=== PATIENT | male | born 1950 | race Caucasian/White ===

== ENCOUNTER 2020-10-04 09:27 | Outpatient (REF) | payer MEDICARE, OTHER, SELFPAY ==
--- NOTE | 2020-10-04 09:31 | CT_ITS ---
EXAMINATION: CT CHEST WITHOUT CONTRAST CLINICAL INFORMATION: Malignant neoplasm of lower lobe. COMPARISON: Chest 02/16/[address] chest 05/12/2017. TECHNIQUE: Multidetector volumetric CT imaging of the chest was done. Axial MIP volume rendering provided. Sagittal and coronal reformatted images were obtained. This CT examination was performed using dose optimization techniques as appropriate, variously including the following: *Automated exposure control *Adjustment of mA and/or kV according to patient size (this includes techniques or standardized protocols for targeted exams where dose is matched to indication/reason for exam; i.e. extremities or head) *Use of iterative reconstruction technique DLP: 182 mGy-cm FINDINGS: HIGH PRESSURE CLEANER: Well-expanded lungs. LUNGS: Inflated lungs with postsurgical changes right upper hemithorax. There is no recurrent pneumothorax. Parenchymal thickening at the surgical site is similar to previous exam from previous study. Small reticular nodular changes in the right upper lobe are also unchanged. Patchy ground-glass density with reticular nodular changes in the right lower lobe are new since the previous study. The largest nodule measures 5 mm on axial image 365/7. MEDIASTINUM: The central trachea and the bronchi are widely patent. The heart size and the great vessels are normal caliber. Mild dystrophic calcification of thoracic arch and the coronary arteries is noted. No pericardial effusion seen. No abnormal mediastinal or hilar lymph nodes. PLEURA: There is no pleural effusion. No pleural mass or thickening. AXILLA: No lymphadenopathy. UPPER ABDOMEN: Visualized liver, spleen, pancreas and bilateral adrenal glands are unremarkable. No radiopaque gallstones or wall thickening seen. There is a punctate calcification midpole right kidney. OSSEOUS STRUCTURES: No lytic or sclerotic process seen. CT/CT chest wo con IMPRESSION: Status post right upper lobe partial lobectomy with postop changes seen. No changes seen in the right upper hemithorax. There are new reticular nodular changes and ground-glass scattered densities in the right lower lobe most likely postradiation changes. The largest nodule measures 5 mm. I would correlate with CT PET study or CT followup in 3-6 months. The left lung remains clear. No abnormal mediastinal lymph node seen.
== END 2020-10-04 09:28 | disposition home or self-care (01) ==
LOC: HO.CT 09:27
PROVIDERS: PCP Internal Medicine; Visit Provider Surgery
DX: C34.30 Malignant neoplasm of lower lobe, unspecified bronchus or lung (principal)
CPT/HCPCS: 71250

== ENCOUNTER 2020-11-12 08:15 | Day surgery (SDC) | payer MEDICARE, OTHER, SELFPAY ==
[2020-11-07 09:10] VITALS: BMI 24.9
--- NOTE | 2020-11-09 07:29 | HO.ANESPROP2 ---
Documented by User: Etta Call 11/09/20 07:30 HPI - Anesthesia Eval Consult details Narrative: 70yo M for Upper Endoscopy and Colonoscopy h/o lung ca with RLL resect 2016. Also ?esoph ca but lost to f/u. Dr Barth follows recently and recommend EGD PMFSH Past Medical History Medical History Arthritis Depression Elevated cholesterol GERD (gastroesophageal reflux disease) History of esophageal cancer HTN (hypertension) Hx of cancer of lung Surgical History Surgical History H/O colonoscopy History of esophagogastroduodenoscopy (EGD) History of surgery on left wrist Hx of tonsillectomy Social History Social History Are you a primary caregivers non medical to a significant other at home: No Do you presently have visiting nurse or other home services: No Smoking Status: Former smoker Smoked in Last 30 Days: No Smoking Quit Date: 2015 Use of substances other than those prescribed or required for medical reasons: No Have you been hit, kicked, punched, or otherwise hurt by someone within the past year? If so, by whom?: No Advance Directives Information Provided: No Recently lost weight without trying: No Meds Allergies Allergy/AdvReac Type Severity Reaction Status Date / Time erythromycin base Allergy Mild HIVES Verified 11/12/20 08:00 [Erythromycin Base] levofloxacin Allergy Unknown Unknown Verified 11/12/20 08:00 Home Medications Medication Instructions Recorded Confirmed Last Taken Type atorvastatin 20 mg PO BEDTIME 11/07/20 11/07/20 Unknown History losartan 50 mg PO DAILY 11/07/20 11/07/20 Unknown History omeprazole 40 mg PO DAILY 11/07/20 11/07/20 Unknown History sertraline 100 mg PO DAILY 11/07/20 11/07/20 11/12/20 07:30 History Exam Exam Date and Time: November 09, 2020 0729 Height,Weight and Vital Signs: Height 5 ft 4 in Weight 65.771 kg Assessment and Plan Assessment Anesthesia Assessment: Chart Reviewed Documented by User: Ashok Diaz 11/12/20 09:35 COUNTS INCLUDE 234 BEDS AT THE [facility] Past Medical History Medical History Arthritis Depression Elevated cholesterol GERD (gastroesophageal reflux disease) History of esophageal cancer HTN (hypertension) Hx of cancer of lung Surgical History Surgical History H/O colonoscopy History of esophagogastroduodenoscopy (EGD) History of surgery on left wrist Hx of tonsillectomy Social History Social History Are you a primary caregivers non medical to a significant other at home: No Do you presently have visiting nurse or other home services: No Smoking Status: Former smoker Smoked in Last 30 Days: No Smoking Quit Date: 2015 Use of substances other than those prescribed or required for medical reasons: No Have you been hit, kicked, punched, or otherwise hurt by someone within the past year? If so, by whom?: No Advance Directives Information Provided: No Recently lost weight without trying: No Meds Allergies Allergy/AdvReac Type Severity Reaction Status Date / Time erythromycin base Allergy Mild HIVES Verified 11/12/20 08:00 [Erythromycin Base] levofloxacin Allergy Unknown Unknown Verified 11/12/20 08:00 Home Medications Medication Instructions Recorded Confirmed Last Taken Type atorvastatin 20 mg PO BEDTIME 11/07/20 11/07/20 Unknown History losartan 50 mg PO DAILY 11/07/20 11/07/20 Unknown History omeprazole 40 mg PO DAILY 11/07/20 11/07/20 Unknown History sertraline 100 mg PO DAILY 11/07/20 11/07/20 11/12/20 07:30 History Exam Airway Mallampati Class: II TM Dist: >3cm Neck ROM: Full Denture: Upper Loose/Missing/Broken Teeth: Yes (lower poor dentition) Heart: [id number] Lungs: cta b/l Assessment and Plan Assessment Anesthesia Assessment: Anesthesia Plan Discussed, Smoking Cess. Discussed and Chart Reviewed Final Anesthetic Review NPO: Yes ASA Class: III Final Preanesthetic Review: No Changes in Pt Med Stat, Meds/Allgs Chart Reviewed, Consent Obtained/Reviewed and Anes Risks/Benef Reviewed Patient Risk: Low Procedure Risk: Low Assessment/Block/Sedation in SS: Assess/Block/Sedation-SS Anesthetic Plan Anesthetic Plan: MAC: and Agree w/ Assess. and Plan Disposition: Standard PACU
[2020-11-12 08:44] VITALS: BP 100/70; PULSE 76; RESP 16; TEMP 36.6; O2SAT 98
[2020-11-12] MEDS: Lactated Ringers 1,000 ML 100 ML IVCONT (08:59)
[2020-11-12 10:34] VITALS: BP 80/57; PULSE 67; RESP 12; TEMP 36.1; O2SAT 99
[2020-11-12 10:38] VITALS: BP 72/48; PULSE 63; RESP 16; O2SAT 100
--- NOTE | 2020-11-12 10:38 | PM.OP ---
Brief Operative Note Date of Service: 11/12/20 Pre-op diagnosis: GERD, Screening Post-op diagnosis: other (Hiatal hernia, Gastritis, Duodenitis, Colon polyps, Diverticulosis) Procedure: EGD with biopsies, Colonoscopy to the cecum with biopsy and removal of polyps Surgeon: Corey Pascual Anesthesia: MAC Estimated blood loss (mL): 4.0 Pathology: other (A. Gastric antrum B. Esophagus at 22cm C. Transverse colon polyp D. Rectal polyp) Condition: stable Disposition: PACU
[2020-11-12 10:42] VITALS: BP 84/54; PULSE 64; RESP 16; O2SAT 100
[2020-11-12 10:53] VITALS: BP 100/63; PULSE 69; RESP 17; TEMP 36.1; O2SAT 99
--- NOTE | 2020-11-12 10:55 | OP_ITS ---
SURGEON: Corey Pascual MD INDICATIONS: The patient presents for evaluation of gastroesophageal reflux, history of esophageal cancer, personal history of tubular adenoma of the colon, and colorectal cancer screening. Full consent has been obtained from him for this, including risks of bleeding and perforation. PREOPERATIVE DIAGNOSIS: POSTOPERATIVE DIAGNOSIS: PROCEDURE PERFORMED: Esophagogastroduodenoscopy with biopsies and colonoscopy to the cecum with biopsy and removal of polyps. ESTIMATED BLOOD LOSS: COMPLICATIONS: ANESTHESIA: Monitored anesthesia care. ASSISTANTS: SPECIMENS: PREOPERATIVE DIAGNOSES: Gastroesophageal reflux, personal history of esophageal cancer, personal history of tubular adenoma of the colon, and colorectal cancer screening. POSTOPERATIVE DIAGNOSES: Gastroesophageal reflux, personal history of esophageal cancer, personal history of tubular adenoma of the colon, and colorectal cancer screening, hiatal hernia, gastritis, colon polyps, diverticulosis and internal hemorrhoids. DESCRIPTION OF PROCEDURE: The patient was placed in the left lateral decubitus position. The Olympus video gastroscope was passed in the posterior oropharynx and upper esophagus under direct vision. The scope was passed slowly into the distal esophagus. The gastroesophageal junction appeared normal at 35 cm. There was no sign of any esophagitis nor Jacques's esophagus. There was a small hiatal hernia. The scope was advanced to the pylorus and the duodenum was cannulated to the descending portion. The duodenum including the bulb was carefully inspected. There was some mild duodenitis in the duodenal bulb, but no ulcerations nor erosions. Scope was withdrawn back into the stomach. The gastric antrum had changes consistent with a chronic gastritis with some erythema and edema, but no erosions or ulceration. There was good peristalsis. Biopsies were obtained from the gastric antrum. The scope was retroflexed visualizing the proximal stomach carefully, which appeared to have some component of a gastropathy, but without erosions or ulceration. There was no mass. The scope was straightened out and withdrawn back into the esophagus. The EG junction appeared normal. The entire esophagus appeared normal other than some scarring in the very proximal esophagus and at approximately 22 cm, some areas of erythema, but without any sign of mass or ulceration. Biopsies were obtained at 22 cm. The scope was withdrawn from the patient. He was turned around for colonoscopy. The digital rectal exam revealed no abnormalities. The Olympus video pediatric colonoscope was entered into the rectum and advanced easily to the cecum. Once in the cecum, I did identify normal-appearing cecal pouch with appendiceal orifice and a normal-appearing ileocecal valve. The entire cecum was well visualized and appeared normal. The scope was slowly withdrawn assessing all mucosal surfaces carefully. Preparation was excellent. In the transverse colon, was a flat, but slightly raised approximately 8 mm probable hyperplastic and/or inflammatory polyp, which was biopsied multiple times. In the rectum, was an approximately 3 or 4 mm polyp, which was biopsied and completely removed with cold biopsy forceps. I did not visualize any other polyps, colitis, nor angiodysplasia. There was a mild amount of sigmoid diverticulosis. In the rectum, scope was retroflexed visualizing internal hemorrhoids, but no other pathology. The rectal mucosa appeared normal. Scope was straightened out and withdrawn from the patient. He tolerated the procedures well and was returned to the recovery area in stable condition. IMPRESSION: 1. Hiatal hernia. 2. Gastritis. 3. Colon polyps. 4. Diverticulosis. 5. Internal hemorrhoids. PLAN: The results of the biopsies will be checked. I would recommend a repeat colonoscopy in 5 years for further surveillance. He will continue his omeprazole for symptomatic reflux. He was advised not to use any aspirin nor NSAIDs for at least 1 week. MD KIYA Braga/DEWAYNE / [id number]
== END 2020-11-12 12:12 | disposition home or self-care (01) ==
PROVIDERS: PCP Internal Medicine; Visit Provider Internal Medicine
PROC: (CPT 45380; principal; 2020-11-12 09:30)
DX: Z12.11 Encounter for screening for malignant neoplasm of colon (principal); Z86.010 Personal history of colon polyps; K63.5 Polyp of colon; K64.8 Other hemorrhoids; K21.9 Gastro-esophageal reflux disease without esophagitis; Z85.01 Personal history of malignant neoplasm of esophagus; K29.70 Gastritis, unspecified, without bleeding; K29.80 Duodenitis without bleeding; K44.9 Diaphragmatic hernia without obstruction or gangrene; I10 Essential (primary) hypertension; Z79.899 Other long term (current) drug therapy; Z85.118 Personal history of other malignant neoplasm of bronchus and lung; Z92.21 Personal history of antineoplastic chemotherapy; Z92.3 Personal history of irradiation; Z87.891 Personal history of nicotine dependence
CPT/HCPCS: 45380; 43239; 88305; 88342; J2370

== ENCOUNTER 2021-01-02 11:04 | Outpatient (REF) | payer MEDICARE, OTHER, SELFPAY ==
--- NOTE | ~2021-01-02 | CT_ITS ---
EXAMINATION: CT CHEST WITHOUT CONTRAST CLINICAL INFORMATION: Malignant neoplasm of bronchus/lower lobe COMPARISON: None TECHNIQUE: Multidetector volumetric CT imaging of the chest was done. Axial MIP volume rendering provided. Sagittal and coronal reformatted images were obtained. This CT examination was performed using dose optimization techniques as appropriate, variously including the following: *Automated exposure control *Adjustment of mA and/or kV according to patient size (this includes techniques or standardized protocols for targeted exams where dose is matched to indication/reason for exam; i.e. extremities or head) *Use of iterative reconstruction technique DLP: 179 mGy-cm FINDINGS: GROUNDS AND NURSERY SPECIALIST: Well-inflated lungs. LUNGS: There are postsurgical changes right upper lobe following wedge resection. Small reticulonodular changes in the right upper lobe are similar to previous study. No recurrent mass or nodule seen. There are reticulonodular changes in the right lower lobe, again visualized. The largest nodule right lower lobe measures 7 mm on axial image 35/4. Same nodule previously measured 7 mm and is stable. No new nodules seen. MEDIASTINUM: There is right ipsilateral mediastinal shift due to volume loss. The right thyroid lobe is visualized. The left thyroid lobe is not seen. The central trachea and the bronchi are widely patent. No abnormal size mediastinal or hilar lymph nodes seen. Heart size and the great vessels are normal caliber. There are coronary artery calcifications. No pericardial effusion seen. PLEURA: There is minimal right upper hemithorax lateral pleural thickening likely postsurgical. No pleural effusion seen. There is no pleural calcification. AXILLA: No lymphadenopathy. UPPER ABDOMEN: Visualized liver, spleen, pancreas and bilateral adrenal glands are unremarkable. OSSEOUS STRUCTURES: No lytic or sclerotic process seen. CT/CT chest wo con IMPRESSION: Right upper lobe partial lobectomy with postop changes seen. No recurrent disease in the right upper lobe. Reticulonodular changes and ground-glass attenuation right lower lobe are stable. There are no new nodules or ground-glass density. There is ipsilateral mediastinal shift. Consider long-term CT chest follow-up in 9-12 months.
== END 2021-01-02 11:05 | disposition home or self-care (01) ==
LOC: HO.CT 11:04
PROVIDERS: PCP Internal Medicine; Visit Provider Surgery
DX: C34.90 Malignant neoplasm of unspecified part of unspecified bronchus or lung (principal)
CPT/HCPCS: 71250

== ENCOUNTER 2021-07-18 11:24 | Outpatient (REF) | payer MEDICARE, OTHER, SELFPAY ==
[2021-07-18 13:45] LABS: MANUAL DIFF FLAG NO
[2021-07-18 13:51] LABS: Basophils Percent Auto 0.4 % (0-2); Eosinophils Absolute Auto 0.1 X10*3/uL (0.0-0.4); Eosinophils Percent Auto 1.1 % (0-4); Hematocrit 39.3 % (42.0-52.0); Hemoglobin 13.2 g/dl (14.0-18.0); Imm Gran Abs Auto 0.01 X10*3/uL (0.00-0.03); Imm Gran Pct Auto 0.2 % (0.0-0.4); Lymphocytes Percent Auto 43.1 % (20-40); Mean Corpuscular HGB Conc 33.6 g/dl (31.0-36.0); Mean Corpuscular Hemoglobin 29.4 pg (27.0-33.0); Mean Corpuscular Volume 87.5 fL (80.0-98.0); Mean Platelet Volume 10.3 fL (9.4-12.4); Monocytes Absolute Auto 0.4 X10*3/uL (0.1-1.2); Monocytes Percent Auto 7.8 % (2-11); Neutrophils Absolute Auto 2.17 x10*3/uL (2.0-8.3); Neutrophils Percent Auto 47.4 % (45-73); Platelet Count 190 X10*3/uL (160-400); Red Blood Count 4.49 X10*6/uL (4.60-5.80); Red Cell Distribution Width 13.2 % (11.0-16.0); White Blood Count 4.6 X10*3/uL (4.8-10.8)
[2021-07-18 14:18] LABS: Alanine Aminotransferase 14 U/L (0-40); Albumin Level 4.8 g/dL (3.5-5.0); Alkaline Phosphatase 100 U/L (39-117); Anion Gap 14 (12-20); Aspartate Amino Transferase 20 U/L (5-37); Bilirubin Total 0.5 mg/dL (0.0-1.0); Blood Urea Nitrogen 22 mg/dL (9-16); Calcium 10.1 mg/dL (8.4-10.2); Carbon Dioxide 29 mmol/L (22-29); Chloride 102 mmol/L (96-108); Cholesterol 175 mg/dL; Estimated Glomerular Filt Rate > 60; Glucose Fasting 95 mg/dL (60-99); HDL Cholesterol 45 mg/dL; LDL Cholesterol Calculated 110 mg/dl; Potassium 4.8 mmol/L (3.3-5.1); Sodium 140 mmol/L (135-145); Total Protein 7.5 g/dL (6.5-8.0); Triglycerides 104 mg/dL
== END 2021-07-18 11:25 | disposition home or self-care (01) ==
LOC: HO.HMGCLDS 11:24
PROVIDERS: PCP Internal Medicine; Visit Provider Internal Medicine
DX: I73.9 Peripheral vascular disease, unspecified (principal); K21.9 Gastro-esophageal reflux disease without esophagitis; E78.00 Pure hypercholesterolemia, unspecified; N40.0 Benign prostatic hyperplasia without lower urinary tract symptoms; Z12.5 Encounter for screening for malignant neoplasm of prostate
CPT/HCPCS: 36415; 80053; 80061; 84153; 85025

== ENCOUNTER 2022-05-14 13:03 | Outpatient (REF) | payer MEDICARE, SELFPAY ==
--- NOTE | ~2022-05-14 | XR_ITS ---
EXAMINATION: XR CHEST CLINICAL INFORMATION: Pleuritic chest pain COMPARISON: CT of January 02, 2021 and chest x-ray of February 16, 2019. TECHNIQUE: 2 views of the chest were obtained. FINDINGS: Postsurgical change is seen within the right pneumothorax. There appear to be a few new lung nodules present, with one along the suture line laterally measuring approximately 2 cm in diameter and the largest overlying the right heart border measuring approximately 2.4 cm in diameter. There is also a 1 cm nodular density seen overlying the right fifth rib anteriorly. There appear to be multiple smaller nodules seen bilaterally. Heart normal size. No evidence of pulmonary edema. No pleural effusion is appreciated. XR/XR chest 2V IMPRESSION: Findings suspicious for new lung nodules. Postsurgical change right hemithorax. CT of chest would be of help in further evaluation.
--- NOTE | ~2022-05-14 | XR_ITS ---
EXAMINATION: XR PELVIS CLINICAL INFORMATION: Rule out osteoarthritis. COMPARISON: CT abdomen of 12/07/2015. TECHNIQUE: AP view of the pelvis. FINDINGS: AP view of the pelvis does not demonstrate any evidence of acute fracture or diastases. Sacroiliac joints appear unremarkable. The hip joint spaces appear maintained. No destructive bony lesion is appreciated. There is multilevel degenerative disc disease and prominent spurring seen involving the lower lumbar spine. There appears to be scoliosis convex left of the lower lumbar spine. There are prominent vascular calcifications seen. XR/XR pelvis 1-2V IMPRESSION: No significant bony pelvic abnormality appreciated. Significant degenerative disc disease lower lumbar spine.
[2022-05-14 15:59] LABS: MANUAL DIFF FLAG NO
[2022-05-14 16:03] LABS: Basophils Percent Auto 0.4 % (0-2); Eosinophils Absolute Auto 0.1 X10*3/uL (0.0-0.4); Eosinophils Percent Auto 1.9 % (0-4); Hematocrit 36.7 % (42.0-52.0); Hemoglobin 12.3 g/dl (14.0-18.0); Imm Gran Abs Auto 0.06 X10*3/uL (0.00-0.03); Imm Gran Pct Auto 0.8 % (0.0-0.4); Lymphocytes Absolute Auto 1.7 X10*3/uL (1.2-4.9); Lymphocytes Percent Auto 23.4 % (20-40); Mean Corpuscular HGB Conc 33.5 g/dl (31.0-36.0); Mean Corpuscular Hemoglobin 28.5 pg (27.0-33.0); Mean Platelet Volume 9.7 fL (9.4-12.4); Monocytes Absolute Auto 0.5 X10*3/uL (0.1-1.2); Monocytes Percent Auto 7.4 % (2-11); Neutrophils Absolute Auto 4.8 x10*3/uL (2.0-8.3); Neutrophils Percent Auto 66.1 % (45-73); Platelet Count 157 X10*3/uL (160-400); Red Blood Count 4.32 X10*6/uL (4.60-5.80); Red Cell Distribution Width 14.2 % (11.0-16.0); White Blood Count 7.3 X10*3/uL (4.8-10.8)
[2022-05-14 16:18] LABS: Alanine Aminotransferase 18 U/L (0-40); Albumin Level 4.4 g/dL (3.5-5.0); Alkaline Phosphatase 97 U/L (39-117); Anion Gap 15 (12-20); Aspartate Amino Transferase 22 U/L (5-37); Bilirubin Total 0.4 mg/dL (0.0-1.0); Blood Urea Nitrogen 24 mg/dL (9-16); C Reactive Protein 2.63 mg/dL (< or = 0.50); Calcium 10.1 mg/dL (8.4-10.2); Carbon Dioxide 27 mmol/L (22-29); Chloride 103 mmol/L (96-108); Estimated Glomerular Filt Rate > 60; Glucose Random 98 mg/dL (60-115); Potassium 4.3 mmol/L (3.3-5.1); Sodium 141 mmol/L (135-145); Total Protein 7.1 g/dL (6.5-8.0)
== END 2022-05-14 13:04 | disposition home or self-care (01) ==
LOC: HO.HMGCX 13:03
PROVIDERS: PCP Internal Medicine; Visit Provider Internal Medicine
DX: R07.89 Other chest pain (principal); Z13.828 Encounter for screening for other musculoskeletal disorder
CPT/HCPCS: 36415; 71046; 72170; 80053; 85025; 86140

== ENCOUNTER 2022-05-16 07:29 | Outpatient (REF) | payer BC, SELFPAY ==
--- NOTE | ~2022-05-16 | CT_ITS ---
EXAMINATION: CT CHEST WITHOUT CONTRAST CLINICAL INFORMATION: New lung nodules. History of lung cancer. COMPARISON: 01/02/2021 and 10/04/2020. TECHNIQUE: Multidetector volumetric CT imaging of the chest was done. Axial MIP volume rendering provided. Sagittal and coronal reformatted images were obtained. This CT examination was performed using dose optimization techniques as appropriate, variously including the following: *Automated exposure control *Adjustment of mA and/or kV according to patient size (this includes techniques or standardized protocols for targeted exams where dose is matched to indication/reason for exam; i.e. 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 Central airways are patent. There is some mucous debris seen within the trachea. There is diffuse bronchial wall thickening present. Patient is status post previous right lung surgery which appears to involve the upper lobe and lower lobe subpleural right lower lobe 1.6 x 0.9 cm on image 297 of 574. With associated postsurgical scarring. Patient has developed innumerable sub-4 mm densities throughout the lungs bilaterally. Other larger nodules are present and a few of the largest are listed below: Right upper lobe 7 mm nodule on image 84 574 in series #5. 6 mm noncalcified subpleural nodule within the right upper lobe posteriorly on image 86 of 574. 3.0 x 2.1 cm in size right lower lobe mass on image 316 of 574. Right hemithorax 5.0 x 2.3 cm along the surgical line on image 215 of 574. Right medial lung along suture line measuring approximately 2.7 x 1.4 cm in size on image 185 of 574 in the suprahilar region which extends into the right hilum. 8 mm noncalcified nodule within the lingula on image 330 of 574. 8 mm subpleural noncalcified nodule within the left lower lobe on image 349 of 574. MEDIASTINUM: Heart normal size. Coronary artery calcification present. There is a small pericardial effusion. No thoracic aortic aneurysm. Right hilar lymphadenopathy. 1.1 cm right subclavicular lymph node. PLEURA: There is no pleural effusion. AXILLA: No lymphadenopathy. UPPER ABDOMEN: No significant abnormality appreciated. OSSEOUS STRUCTURES: No suspicious destructive bony lesions identified. There is severe degenerative change of the left glenohumeral joint. There is multilevel degenerative disc disease seen. CT/CT chest wo IV con IMPRESSION: Evidence for recurrence of disease as well as metastatic disease to the lungs as described. Small pericardial effusion. Fleischner guidelines were followed.
== END 2022-05-16 07:30 | disposition home or self-care (01) ==
LOC: HO.CT 07:29
PROVIDERS: PCP Internal Medicine; Visit Provider Internal Medicine
DX: R91.1 Solitary pulmonary nodule (principal); R91.8 Other nonspecific abnormal finding of lung field
CPT/HCPCS: 71250

== ENCOUNTER 2022-05-21 14:15 | Inpatient (IN) | payer MEDICARE, SELFPAY ==
--- NOTE | ~2022-05-21 | CT_ITS ---
EXAMINATION: CT HEAD WITHOUT CONTRAST CLINICAL INFORMATION: Resolved confusion. Question TIA. COMPARISON: None TECHNIQUE: Contiguous axial imaging was performed from the skull base to vertex without intravenous administration of contrast. This CT examination was performed using dose optimization techniques as appropriate, variously including the following: *Automated exposure control *Adjustment of mA and/or kV according to patient size (this includes techniques or standardized protocols for targeted exams where dose is matched to indication/reason for exam; i.e. extremities or head) *Use of iterative reconstruction technique DLP: 976 mGy-cm FINDINGS: There is no evidence of acute intracranial hemorrhage or territorial infarction. No abnormal mass effect or midline shift is appreciated. Mcneil-white differentiation is well preserved. No extra-axial fluid collections. The ventricular system and cortical sulci are prominent, consistent with age-appropriate volume loss. There are areas of low density in the periventricular and subcortical white matter, most consistent with sequelae of microvascular ischemic change. Mild basal ganglia calcifications. The osseous structures and soft tissues are normal. Small soft tissue density within the left posterior scalp is nonspecific but possibly a small sebaceous cyst. There are calcifications of the cavernous internal carotid arteries. The visualized paranasal sinuses and mastoid air cells are well aerated. CT/CT head/brain wo IV con IMPRESSION: Chronic microvascular ischemic changes with no CT evidence of acute intracranial abnormality.
--- NOTE | ~2022-05-21 | XR_ITS ---
EXAMINATION: XR CHEST CLINICAL INFORMATION: Chest pain COMPARISON: CT chest 05/21/2022 TECHNIQUE: 2 views of the chest were obtained. FINDINGS: Loss of right lung volume from previous intervention. There are cystic appearance to the right upper lung and postsurgical changes in the right midlung. There is a right lower lung large soft tissue mass measuring 2.8 cm in length. Increased chronic bilateral reticular nodular changes seen throughout. No acute consolidation or pleural effusion. Heart size and pulmonary vascularity is normal. No gross bony abnormality seen. XR/XR chest 2V IMPRESSION: Decreased right lung volume with cystic changes in right upper lung. Large nodule/mass right lower lobe. Chronic reticular nodular changes in both lungs.
--- NOTE | ~2022-05-21 | CT_ITS ---
EXAMINATION: CT ANGIOGRAM OF THE CHEST WITH AND WITHOUT CONTRAST (CT PULMONARY ANGIOGRAM FOR PE) CLINICAL INFORMATION: Reason for Exam Pleuritic CP. rule out PE. elevated troponin COMPARISON: Chest CT 05/16/2022 TECHNIQUE: Prior to contrast administration, noncontrast localization images were obtained. Subsequently, multidetector volumetric imaging was performed from the thoracic inlet to below the diaphragms following the administration of 65 mL Omnipaque 350 intravenous contrast. No contrast reaction reported Sagittal, coronal, and MIP oblique sagittal reformatted images were obtained on the CT workstation, uploaded to PACS, and reviewed. This CT examination was performed using dose optimization techniques as appropriate, variously including the following: *Automated exposure control *Adjustment of mA and/or kV according to patient size (this includes techniques or standardized protocols for targeted exams where dose is matched to indication/reason for exam; i.e. extremities or head) *Use of iterative reconstruction technique Total exam dose-length product 323 mGy-cm FINDINGS: QUALITY OF STUDY/CONTRAST BOLUS: Satisfactory. PULMONARY ARTERIES: No central or segmental pulmonary emboli. THORACIC AORTA: No aneurysm or dissection. LUNG: Patient is status post right upper lobectomy and partial right lower lobe resection as on prior. Unchanged 2.7 x 1.9 cm right lower lobe pulmonary nodule, 5.7 x 2 cm masslike opacity along suture line in the right lower lobe, and 3.3 x 2.4 cm masslike opacity in the medial right middle lobe adjacent to the suture line. Innumerable smaller bilateral pulmonary nodules are redemonstrated. There is no mild groundglass attenuation within both lungs most prominently in the left lung with mild scattered septal thickening. No erik lobar consolidation. Residual central airways are clear. PLEURA: No pleural effusion or pneumothorax. MEDIASTINUM: No cardiomegaly or pericardial effusion. LAD coronary calcification and/or stent. Normal caliber thoracic aorta. No discrete enlarged mediastinal or hilar lymph nodes. No evidence of septal bowing or right heart strain. CHEST WALL/AXILLA: No axillary or internal mammary lymphadenopathy. Absent left thyroid lobe. OSSEOUS STRUCTURES: Lytic lesion with pathologic fracture through the posterior right 10th rib adjacent to the costovertebral joint T7 superior endplate compression fracture with minimal height loss and mild buckling of the posterior cortex. UPPER ABDOMEN: Patchy areas of diminished perfusion/enhancement within both kidneys. Punctate 2 mm nonobstructing right renal calculus. Small hiatal hernia. Upper abdominal viscera otherwise grossly unremarkable. No reflux of contrast into the hepatic veins to suggest elevated right heart pressures. CT/CT angio chest PE protocol IMPRESSION: 1. No evidence of pulmonary embolus. 2. Status post right upper lobectomy and partial right lower lobe resection. 3. Redemonstrated multiple pulmonary nodule/metastasis bilaterally. 4. Interval development of mild septal thickening and groundglass attenuation within both lungs, nonspecific could represent atypical infection and/or conceivably lymphangitic spread of tumor. 5. Lytic lesion and pathologic fracture the posterior right 10th rib adjacent to the costovertebral joint. 6. T7 superior endplate compression fracture with mild vertebral body height loss, exact acuity uncertain. Correlate clinically with pain referable to this level on exam. 7. Patchy hyperenhancement/hypoperfusion of portions of both kidneys, not well assessed. Findings could represent sequela of renal dysfunction or possibly pyelonephritis. Correlate clinically with renal function and urinalysis. VTE:
--- NOTE | 2022-05-21 14:22 | ECG_ITS ---
Test Reason : chest pain Blood Pressure : / mmHG Vent. Rate : 091 BPM Atrial Rate : 091 BPM P-R Int : 110 ms QRS Dur : 082 ms QT Int : 346 ms P-R-T Axes : 027 003 037 degrees QTc Int : 425 ms Sinus rhythm with short HI Otherwise normal ECG When compared with ECG of 03-APR-2008 12:52, HI interval has decreased Referred By: Generic ED Physician Electronically Signed By:ANDRES ANG
[2022-05-21 14:25] VITALS: BP 106/87; PULSE 96; RESP 16; TEMP 36.6; O2SAT 99; BMI 28.2
[2022-05-21 14:46] LABS: MANUAL DIFF FLAG NO
[2022-05-21 14:56] LABS: Basophils Percent Auto 0.2 % (0-2); Eosinophils Absolute Auto 0.1 X10*3/uL (0.0-0.4); Eosinophils Percent Auto 1.1 % (0-4); Hematocrit 38.1 % (42.0-52.0); Hemoglobin 12.7 g/dl (14.0-18.0); Imm Gran Abs Auto 0.13 X10*3/uL (0.00-0.03); Imm Gran Pct Auto 1.6 % (0.0-0.4); Lymphocytes Absolute Auto 1.6 X10*3/uL (1.2-4.9); Lymphocytes Percent Auto 19.3 % (20-40); Mean Corpuscular HGB Conc 33.3 g/dl (31.0-36.0); Mean Corpuscular Hemoglobin 28.5 pg (27.0-33.0); Mean Corpuscular Volume 85.4 fL (80.0-98.0); Mean Platelet Volume 9.2 fL (9.4-12.4); Monocytes Absolute Auto 0.5 X10*3/uL (0.1-1.2); Monocytes Percent Auto 6.5 % (2-11); Neutrophils Absolute Auto 5.8 x10*3/uL (2.0-8.3); Neutrophils Percent Auto 71.3 % (45-73); Platelet Count 150 X10*3/uL (160-400); Red Blood Count 4.46 X10*6/uL (4.60-5.80); White Blood Count 8.1 X10*3/uL (4.8-10.8)
[2022-05-21 15:18] LABS: Troponin-I High Sensitivity 542.6 ng/L (<3.5-35.0)
[2022-05-21 15:25] LABS: Anion Gap 18 (12-20); Blood Urea Nitrogen 33 mg/dL (9-16); Carbon Dioxide 27 mmol/L (22-29); Chloride 100 mmol/L (96-108); Creatinine Clr Calc Pharmacy 50.5; Estimated Glomerular Filt Rate > 60; Glucose Random 124 mg/dL (60-115); Potassium 4.7 mmol/L (3.3-5.1); Sodium 140 mmol/L (135-145)
[2022-05-21 15:39] LABS: Calcium 11.4 mg/dL (8.4-10.2)
[2022-05-21 16:20] LABS: Alanine Aminotransferase 17 U/L (0-40); Albumin Level 4.5 g/dL (3.5-5.0); Alkaline Phosphatase 118 U/L (39-117); Aspartate Amino Transferase 22 U/L (5-37); Bilirubin Direct 0.2 mg/dL (0.0-0.5); Bilirubin Total 0.4 mg/dL (0.0-1.0); C Reactive Protein 6.13 mg/dL (< or = 0.50); Lipase 230 U/L (8-78); Magnesium 1.9 mg/dL (1.6-2.6); Total Protein 7.5 g/dL (6.5-8.0)
--- NOTE | 2022-05-21 16:23 | ED.CHESTPAIN ---
HPI - Chest Pain General Chief Complaint: Chest Pain <YUDITH Mendoza Last Filed: 05/21/22 18:14> Stated Complaint: Chest pain/nausea <YUDITH Mendoza Last Filed: 05/21/22 18:14> Time Seen by Provider: 05/21/22 15:40 <YUDITH Mendoza Last Filed: 05/21/22 18:14> Source: patient <YUDITH Mendoza Last Filed: 05/21/22 18:14> Mode of arrival: ambulatory <YUDITH Mendoza Last Filed: 05/21/22 18:14> History of Present Illness HPI narrative: 72-year-old male with a past medical history of arthritis, depression, HLD, GERD, HTN, esophageal CA s/p radiation/chemo and lung CA s/p wedge resection, presenting to the ED complaining of right-sided chest wall pain x1 month worsening this afternoon. States pain is worse with deep breathing and movement. Daughter also reports episode of confusion around noon today, patient had difficulty finding words, resolved at present. Reports nausea, lightheadedness, and SOB secondary to pain. Denies taking anticoagulation. Denies fever, cough, vomiting, pedal edema, calf tenderness, recent travel, history of clots <YUDITH Mendoza Last Filed: 05/21/22 18:14> MD complaint: chest pain and chest heaviness <YUDITH Mendoza Last Filed: 05/21/22 18:14> Onset (ago): day(s) <YUDITH Mendoza Last Filed: 05/21/22 18:14> Related Data Home Medications: Home Medications Medication Instructions Recorded Confirmed atorvastatin 20 mg tablet 20 mg PO BEDTIME 11/07/20 05/21/22 losartan 50 mg tablet 50 mg PO DAILY 11/07/20 05/21/22 omeprazole 40 mg capsule,delayed 40 mg PO DAILY 11/07/20 05/21/22 release sertraline 100 mg tablet 100 mg PO DAILY 11/07/20 05/21/22 Justino's wort 300 mg capsule 300 mg PO DAILY 05/21/22 05/21/22 ginkgo biloba 500 mg capsule 500 mg PO DAILY 05/21/22 05/21/22 vitamin B complex 1 cap PO DAILY 05/21/22 05/21/22 <YUDITH Mendoza Last Filed: 05/21/22 18:14> Allergies/Adverse Reactions: Allergies Allergy/AdvReac Type Severity Reaction Status Date / Time erythromycin base Allergy Mild HIVES Verified 11/12/20 08:00 [Erythromycin Base] levofloxacin Allergy Unknown Unknown Verified 11/12/20 08:00 <YUDITH Mendoza Last Filed: 05/21/22 18:14> Review of Systems Review of Systems: Constitutional: No Fever, No Chills, No Fatigue, No Malaise ENT/Mouth: No Ear Pain, No Nasal Congestion, No sore throat, No Rhinorrhea, No Swallowing Difficulty Eyes: No Eye Pain, No Swelling, No Redness, No Vision Changes Cardiovascular: + Chest Pain, + SOB, No Dyspnea on Exertion, No Orthopnea, No Edema, No Palpitations Respiratory: No Cough, No Sputum, No Wheezing, No Dyspnea Gastrointestinal: + Nausea, No Vomiting, No Diarrhea, No Constipation, No Abdominal pain Genitourinary: No irregular bleeding, No Dysuria, No Hematuria, No Urinary Incontinence/retention, No Flank Pain Musculoskeletal: No joint pain, No Myalgias, No Joint Swelling Skin: No Skin Lesions, No rash Neuro: No Weakness, No Numbness, No Paresthesias, No Loss of Consciousness, + lightheadedness, No Headache, +confusion (resolved) <YUDITH Mendoza Last Filed: 05/21/22 18:14> Yes all other systems are reviewed and are negative <YUDITH Mendoza Last Filed: 05/21/22 18:14> Constitutional: Constitutional: Reports as per HPI <YUDITH Mendoza Last Filed: 05/21/22 18:14> Neurologic: Denies Abnormal speech present <YUDITH Mendoza Last Filed: 05/21/22 18:14> [facility] Past Medical History Attestation statement: The following information was validated with the patient. <YUDITH Mendoza Last Filed: 05/21/22 18:14> Medical History: Medical History Arthritis Depression Elevated cholesterol GERD (gastroesophageal reflux disease) History of esophageal cancer HTN (hypertension) Hx of cancer of lung <YUDITH Mendoza - Last Filed: 05/21/22 18:14> Surgical History: Surgical History H/O colonoscopy History of esophagogastroduodenoscopy (EGD) History of surgery on left wrist Hx of tonsillectomy <YUDITH Mendoza - Last Filed: 05/21/22 18:14> Social History Social History: Social History Are you a primary direct support professional caregiver to a significant other at home: No Do you presently have visiting nurse or other home services: No Alcohol intake: never Patient Tobacco Use Status: Never used Tobacco Advance Directives: Yes Advance Directives Information Provided: Yes Advance Directives on File: No <YUDITH Mendoza - Last Filed: 05/21/22 18:14> Physical Exam Vital Signs: Vital Signs: Last Vital Signs Temp 99.3 F 05/21/22 18:25 Pulse 97 05/21/22 18:25 Resp 26 H 05/21/22 18:25 BP 156/69 H 05/21/22 18:25 Pulse Ox 95 05/21/22 18:25 O2 Del Method 05/21/22 18:25 BMI result Body Mass Index 27.6 <YUDITH Mendoza - Last Filed: 05/21/22 18:14> Vital Signs: Last Vital Signs Temp 99.3 F 05/21/22 18:25 Pulse 97 05/21/22 18:25 Resp 26 H 05/21/22 18:25 BP 156/69 H 05/21/22 18:25 Pulse Ox 95 05/21/22 18:25 O2 Del Method 05/21/22 18:25 BMI result Body Mass Index 27.6 <YUDITH Jones - Last Filed: 05/21/22 19:33> Const: General: cooperative and no acute distress <YUDITH Mendoza - Last Filed: 05/21/22 18:14> Orientation/consciousness: patient oriented x3 <YUDITH Mendoza - Last Filed: 05/21/22 18:14> Limitations: no limitations <YUDITH Mendoza Last Filed: 05/21/22 18:14> HEENT: Head: Yes normal to inspection and Yes atraumatic <YUDITH Mendoza - Last Filed: 05/21/22 18:14> Ears: hearing grossly normal bilaterally <YUDITH Mendoza - Last Filed: 05/21/22 18:14> General nose exam: Normal external nose present <YUDITH Mendoza - Last Filed: 05/21/22 18:14> Face and sinus: Yes normal facial exam <YUDITH Mendoza - Last Filed: 05/21/22 18:14> Throat: Yes posterior oropharynx normal, Yes tonsils normal, Yes uvula midline and No peritonsillar mass <YUDITH Mendoza - Last Filed: 05/21/22 18:14> Eyes: General: appearance normal, both eyes and all related structures <YUDITH Mendoza - Last Filed: 05/21/22 18:14> Pupils: Equal, round and reactive pupils present <Jerica Cerna [place] - Last Filed: 05/21/22 18:14> EOM: EOMs intact bilaterally <YUDITH Mendoza - Last Filed: 05/21/22 18:14> Neck: Neck: Yes normal visual inspection and Yes no meningeal signs <YUDITH Mendoza - Last Filed: 05/21/22 18:14> Chest: Chest palpation & inspection: normal inspection of the chest, no crepitus and tenderness (right anterior lateral chest wall) <YUDITH Mendoza Last Filed: 05/21/22 18:14> Resp: Effort & Inspection: normal respiratory effort and no respiratory distress <Jerica Cerna [facility] Last Filed: 05/21/22 18:14> Auscultation: clear to auscultation bilaterally, no crackles, no rales, no rhonchi and no wheezes <YUDITH Mendoza - Last Filed: 05/21/22 18:14> Cardio: Rate: regular rate <YUDITH Mendoza - Last Filed: 05/21/22 18:14> Heart sounds: S1 normal heart sound present and S2 normal heart sound present <Jerica Poulheront, PA - Last Filed: 05/21/22 18:14> GI: Inspection: Yes normal to inspection <Jerica Poulheront, PA - Last Filed: 05/21/22 18:14> Palpation (GI): Soft to palpation, nontender, no guarding and not rigid <Jerica Pouliot, PA - Last Filed: 05/21/22 18:14> : General: Yes no CVA tenderness <Jerica Pouliot, PA - Last Filed: 05/21/22 18:14> Back/Spine/Pelvis: Back: no CVA tenderness <Jerica Pouliot, PA - Last Filed: 05/21/22 18:14> Skin: Rashes: no rashes <Jerica Pouliot, PA - Last Filed: 05/21/22 18:14> Wounds: no wounds <Jerica Pouliot, PA - Last Filed: 05/21/22 18:14> Neuro: General: patient oriented x3, gait normal, tone normal, moves all extremities, no meningeal signs, no focal motor deficits and CN's II-XI intact bilaterally <Jerica Pouliot, PA - Last Filed: 05/21/22 18:14> Cranial nerves: Yes CN's II-XII intact bilaterally, Yes Equal, round and reactive pupils present and Yes Bilaterally intact EOM present <Jerica Pouliot, PA - Last Filed: 05/21/22 18:14> Cognition (Neuro): normal cognition <Jerica Poulheront, PA - Last Filed: 05/21/22 18:14> Speech: No Abnormal speech present <Jerica Poulheront, PA - Last Filed: 05/21/22 18:14> Gait exam (Neuro): Normal gait present <Jerica Pouliot, PA - Last Filed: 05/21/22 18:14> Motor exam (neuro): 5/5 motor strength present throughout, Pronator motor function not present and no tremor noted <Jerica Pouliot, PA - Last Filed: 05/21/22 18:14> Coordination: [id number] test normal <Jerica Poulheront, PA - Last Filed: 05/21/22 18:14> Romberg Test: Negative <Jerica Pouliot, PA - Last Filed: 05/21/22 18:14> Extrem: General: Yes normal to inspection, Yes no pedal edema and Yes no calf tenderness <YUDITH Mendoza - Last Filed: 05/21/22 18:14> Course Course Course Narrative: XR chest 2V IMPRESSION: Decreased right lung volume with cystic changes in right upper lung. ? Large nodule/mass right lower lobe. Chronic reticular nodular changes in both lungs. -1642--no leukocytosis. H&H at patient's baseline. BUN acute on chronically elevated. Alk phos 118, -troponin 542.6 > will obtain repeat EKG 3 hour repeat troponin -CRP 6.1, lipase 230 -case discussed with Cardiology, Dr. Durand who is in agreement to r/o PE first CT head/brain wo IV con IMPRESSION: Chronic microvascular ischemic changes with no CT evidence of acute intracranial abnormality. ? -1800--ED care transferred to YUDITH Ramachandran pending CT head, CT PE and repeat troponin. Anticipate admission <YUDITH Mendoza - Last Filed: 05/21/22 18:14> Reevaluation(s) Reevaluation #1: CT of head with chronic findings, CT of the chest for PE protocol with no signs of PE, repeat troponin significantly elevated 878.3, [place] text Cardiology, awaiting response, likely will start heparin. Patient will be admitted to the hospitalist team for further evaluation and treatment. <YUDITH Jones - Last Filed: 05/21/22 19:33> Time: 19:25 <YUDITH Jones - Last Filed: 05/21/22 19:33> Reevaluation #2: Cardiology ok with heparin plan. Patient to be admitted. <YUDITH Jones - Last Filed: 05/21/22 19:33> Time: 19:33 <YUDITH Jones - Last Filed: 05/21/22 19:33> MDM - Chest Pain MDM Narrative Medical decision making narrative: 72-year-old male with a past medical history of arthritis, depression, HLD, GERD, HTN, esophageal CA s/p radiation/chemo and lung CA s/p wedge resection, presenting to the ED complaining of right-sided chest wall pain x1 month worsening this afternoon. Also reports episode of confusion around noon today, patient had difficulty finding words, resolved at present. On exam vital signs stable, NAD, chest pain reproducible, lungs CTA, abdomen soft/nontender, no pedal edema. No focal neuro deficits. NIHSS =0 at this time. Concern for ACS vs PE vs pleural effusion vs pneumonia vs myocarditis/pericarditis. Concern for TIA. Lower suspicion for CVA Plan: EKG, labs, UA, head CT, CT PE, admission <UYDITH Mendoza - Last Filed: 05/21/22 18:14> Differential Diagnosis Differential diagnosis: Likely stable angina, unstable angina pectoris, atypical chest pain, st elevation myocardial infarction, costochondritis and chest pain <YUDITH Mendoza - Last Filed: 05/21/22 18:14> Medical Records Data Attestation: I reviewed the patient's medical records. <YUDITH Mendoza - Last Filed: 05/21/22 18:14> Lab Data Attestation: I reviewed the patient's lab results. <YUDITH Mendoza - Last Filed: 05/21/22 18:14> Result diagrams: : 05/21/22 14:41 05/21/22 14:41 <YUDITH Mendoza - Last Filed: 05/21/22 18:14> Labs: Lab Results 05/21/22 05/21/22 05/21/22 Range/Units 14:41 14:41 14:41 WBC 8.1 (4.8-10.8) X10*3/uL RBC 4.46 L (4.60-5.80) X10*6/uL Hgb 12.7 L (14.0-18.0) g/dl Hct 38.1 L (42.0-52.0) % MCV 85.4 (80.0-98.0) fL MCH 28.5 (27.0-33.0) pg MCHC 33.3 (31.0-36.0) g/dl RDW 14.0 (11.0-16.0) % Plt Count 150 L (160-400) X10*3/uL MPV 9.2 L (9.4-12.4) fL Immature Gran % (Auto) 1.6 H (0.0-0.4) % Neut % (Auto) 71.3 (45-73) % Lymph % (Auto) 19.3 L (20-40) % [place] % (Auto) 6.5 (2-11) % Eos % (Auto) 1.1 (0-4) % Baso % (Auto) 0.2 (0-2) % Lymph # (Auto) 1.6 (1.2-4.9) X10*3/uL [place] # (Auto) 0.5 (0.1-1.2) X10*3/uL Eos # (Auto) 0.1 (0.0-0.4) X10*3/uL Baso # (Auto) 0.0 (0.0-0.2) X10*3/uL Abs Immat Gran (auto) 0.13 H (0.00-0.03) X10*3/uL Absolute Neuts (auto) 5.8 (2.0-8.3) x10*3/uL Absolute Nucleated RBC 0.000 (0.0-0.012) X10*3/uL Nucleated RBC % (auto) 0.0 (0.0-0.2) /100WBC ESR (0-15) MM/HR PT (10.0-13.1) SEC INR (0.9-1.1) APTT (26.0-36.4) SEC Sodium 140 (135-145) mmol/L Potassium 4.7 (3.3-5.1) mmol/L Chloride 100 (96-108) mmol/L Carbon Dioxide 27 (22-29) mmol/L Anion Gap 18 (12-20) BUN 33 H (9-16) mg/dL Creatinine 1.05 (0.5-1.4) mg/dL Estim Creat Clear Calc 50.5 Estimated GFR > 60 Random Glucose 124 H (60-115) mg/dL Calcium 11.4 H D (8.4-10.2) mg/dL Magnesium 1.9 (1.6-2.6) mg/dL Total Bilirubin 0.4 (0.0-1.0) mg/dL Direct Bilirubin 0.2 (0.0-0.5) mg/dL AST 22 (5-37) U/L ALT 17 (0-40) U/L Alkaline Phosphatase 118 H D (39-117) U/L Troponin I High Sens 542.6 H* (<3.5-35.0) ng/L C-Reactive Protein 6.13 H (< or = 0.50) mg/dL B-Natriuretic Peptide 12 (<100) pg/mL Total Protein 7.5 (6.5-8.0) g/dL Albumin 4.5 (3.5-5.0) g/dL Lipase 230 H (8-78) U/L Urine Color Urine Appearance Urine pH (5.0-9.0) Ur Specific [place] (1.005-1.025) Urine Protein (Neg-Trace) mg/dL Urine Glucose (UA) (Negative) mg/dL Urine Ketones (Negative) mg/dL Urine Blood (Negative) Urine Nitrite (Negative) Ur Leukocyte Esterase (Negative) COVID-19 (CL) (Negative) COVID-19 Clin Com 05/21/22 05/21/22 05/21/22 Range/Units 14:41 16:52 16:52 WBC (4.8-10.8) X10*3/uL RBC (4.60-5.80) X10*6/uL Hgb (14.0-18.0) g/dl Hct (42.0-52.0) % MCV (80.0-98.0) fL MCH (27.0-33.0) pg MCHC (31.0-36.0) g/dl RDW (11.0-16.0) % Plt Count (160-400) X10*3/uL MPV (9.4-12.4) fL Immature Gran % (Auto) (0.0-0.4) % Neut % (Auto) (45-73) % Lymph % (Auto) (20-40) % [place] % (Auto) (2-11) % Eos % (Auto) (0-4) % Baso % (Auto) (0-2) % Lymph # (Auto) (1.2-4.9) X10*3/uL [place] # (Auto) (0.1-1.2) X10*3/uL Eos # (Auto) (0.0-0.4) X10*3/uL Baso # (Auto) (0.0-0.2) X10*3/uL Abs Immat Gran (auto) (0.00-0.03) X10*3/uL Absolute Neuts (auto) (2.0-8.3) x10*3/uL Absolute Nucleated RBC (0.0-0.012) X10*3/uL Nucleated RBC % (auto) (0.0-0.2) /100WBC ESR 12 (0-15) MM/HR PT 11.9 (10.0-13.1) SEC INR 1.0 (0.9-1.1) APTT 25.9 L (26.0-36.4) SEC Sodium (135-145) mmol/L Potassium (3.3-5.1) mmol/L Chloride (96-108) mmol/L Carbon Dioxide (22-29) mmol/L Anion Gap (12-20) BUN (9-16) mg/dL Creatinine (0.5-1.4) mg/dL Estim Creat Clear Calc Estimated GFR Random Glucose (60-115) mg/dL Calcium (8.4-10.2) mg/dL Magnesium (1.6-2.6) mg/dL Total Bilirubin (0.0-1.0) mg/dL Direct Bilirubin (0.0-0.5) mg/dL AST (5-37) U/L ALT (0-40) U/L Alkaline Phosphatase (39-117) U/L Troponin I High Sens (<3.5-35.0) ng/L C-Reactive Protein (< or = 0.50) mg/dL B-Natriuretic Peptide (<100) pg/mL Total Protein (6.5-8.0) g/dL Albumin (3.5-5.0) g/dL Lipase (8-78) U/L Urine Color Urine Appearance Urine pH (5.0-9.0) Ur Specific [place] (1.005-1.025) Urine Protein (Neg-Trace) mg/dL Urine Glucose (UA) (Negative) mg/dL Urine Ketones (Negative) mg/dL Urine Blood (Negative) Urine Nitrite (Negative) Ur Leukocyte Esterase (Negative) COVID-19 (CL) Negative (Negative) COVID-19 Clin Com See Note 09/07/22 09/07/22 Range/Units 18:43 19:19 WBC (4.8-10.8) X10*3/uL RBC (4.60-5.80) X10*6/uL Hgb (14.0-18.0) g/dl Hct (42.0-52.0) % MCV (80.0-98.0) fL MCH (27.0-33.0) pg MCHC (31.0-36.0) g/dl RDW (11.0-16.0) % Plt Count (160-400) X10*3/uL MPV (9.4-12.4) fL Immature Gran % (Auto) (0.0-0.4) % Neut % (Auto) (45-73) % Lymph % (Auto) (20-40) % [place] % (Auto) (2-11) % Eos % (Auto) (0-4) % Baso % (Auto) (0-2) % Lymph # (Auto) (1.2-4.9) X10*3/uL [place] # (Auto) (0.1-1.2) X10*3/uL Eos # (Auto) (0.0-0.4) X10*3/uL Baso # (Auto) (0.0-0.2) X10*3/uL Abs Immat Gran (auto) (0.00-0.03) X10*3/uL Absolute Neuts (auto) (2.0-8.3) x10*3/uL Absolute Nucleated RBC (0.0-0.012) X10*3/uL Nucleated RBC % (auto) (0.0-0.2) /100WBC ESR (0-15) MM/HR PT (10.0-13.1) SEC INR (0.9-1.1) APTT (26.0-36.4) SEC Sodium (135-145) mmol/L Potassium (3.3-5.1) mmol/L Chloride (96-108) mmol/L Carbon Dioxide (22-29) mmol/L Anion Gap (12-20) BUN (9-16) mg/dL Creatinine (0.5-1.4) mg/dL Estim Creat Clear Calc Estimated GFR Random Glucose (60-115) mg/dL Calcium (8.4-10.2) mg/dL Magnesium (1.6-2.6) mg/dL Total Bilirubin (0.0-1.0) mg/dL Direct Bilirubin (0.0-0.5) mg/dL AST (5-37) U/L ALT (0-40) U/L Alkaline Phosphatase (39-117) U/L Troponin I High Sens 878.3 H* D (<3.5-35.0) ng/L C-Reactive Protein (< or = 0.50) mg/dL B-Natriuretic Peptide (<100) pg/mL Total Protein (6.5-8.0) g/dL Albumin (3.5-5.0) g/dL Lipase (8-78) U/L Urine Color Yellow Urine Appearance Clear Urine pH 6.0 (5.0-9.0) Ur Specific [place] >= 1.030 H (1.005-1.025) Urine Protein 30 (1+) H (Neg-Trace) mg/dL Urine Glucose (UA) Negative (Negative) mg/dL Urine Ketones 15 (Negative) mg/dL Urine Blood Trace H (Negative) Urine Nitrite Negative (Negative) Ur Leukocyte Esterase Negative (Negative) COVID-19 (CL) (Negative) COVID-19 Clin Com <YUDITH Mendoza - Last Filed: 05/21/22 18:14> Lab Results 05/21/22 05/21/22 05/21/22 Range/Units 14:41 14:41 14:41 WBC 8.1 (4.8-10.8) X10*3/uL RBC 4.46 L (4.60-5.80) X10*6/uL Hgb 12.7 L (14.0-18.0) g/dl Hct 38.1 L (42.0-52.0) % MCV 85.4 (80.0-98.0) fL MCH 28.5 (27.0-33.0) pg MCHC 33.3 (31.0-36.0) g/dl RDW 14.0 (11.0-16.0) % Plt Count 150 L (160-400) X10*3/uL MPV 9.2 L (9.4-12.4) fL Immature Gran % (Auto) 1.6 H (0.0-0.4) % Neut % (Auto) 71.3 (45-73) % Lymph % (Auto) 19.3 L (20-40) % [place] % (Auto) 6.5 (2-11) % Eos % (Auto) 1.1 (0-4) % Baso % (Auto) 0.2 (0-2) % Lymph # (Auto) 1.6 (1.2-4.9) X10*3/uL [place] # (Auto) 0.5 (0.1-1.2) X10*3/uL Eos # (Auto) 0.1 (0.0-0.4) X10*3/uL Baso # (Auto) 0.0 (0.0-0.2) X10*3/uL Abs Immat Gran (auto) 0.13 H (0.00-0.03) X10*3/uL Absolute Neuts (auto) 5.8 (2.0-8.3) x10*3/uL Absolute Nucleated RBC 0.000 (0.0-0.012) X10*3/uL Nucleated RBC % (auto) 0.0 (0.0-0.2) /100WBC ESR (0-15) MM/HR PT (10.0-13.1) SEC INR (0.9-1.1) APTT (26.0-36.4) SEC Sodium 140 (135-145) mmol/L Potassium 4.7 (3.3-5.1) mmol/L Chloride 100 (96-108) mmol/L Carbon Dioxide 27 (22-29) mmol/L Anion Gap 18 (12-20) BUN 33 H (9-16) mg/dL Creatinine 1.05 (0.5-1.4) mg/dL Estim Creat Clear Calc 50.5 Estimated GFR > 60 Random Glucose 124 H (60-115) mg/dL Calcium 11.4 H D (8.4-10.2) mg/dL Magnesium 1.9 (1.6-2.6) mg/dL Total Bilirubin 0.4 (0.0-1.0) mg/dL Direct Bilirubin 0.2 (0.0-0.5) mg/dL AST 22 (5-37) U/L ALT 17 (0-40) U/L Alkaline Phosphatase 118 H D (39-117) U/L Troponin I High Sens 542.6 H* (<3.5-35.0) ng/L C-Reactive Protein 6.13 H (< or = 0.50) mg/dL B-Natriuretic Peptide 12 (<100) pg/mL Total Protein 7.5 (6.5-8.0) g/dL Albumin 4.5 (3.5-5.0) g/dL Lipase 230 H (8-78) U/L Urine Color Urine Appearance Urine pH (5.0-9.0) Ur Specific [place] (1.005-1.025) Urine Protein (Neg-Trace) mg/dL Urine Glucose (UA) (Negative) mg/dL Urine Ketones (Negative) mg/dL Urine Blood (Negative) Urine Nitrite (Negative) Ur Leukocyte Esterase (Negative) COVID-19 (CL) (Negative) COVID-19 Clin Com 05/21/22 05/21/22 05/21/22 Range/Units 14:41 16:52 16:52 WBC (4.8-10.8) X10*3/uL RBC (4.60-5.80) X10*6/uL Hgb (14.0-18.0) g/dl Hct (42.0-52.0) % MCV (80.0-98.0) fL MCH (27.0-33.0) pg MCHC (31.0-36.0) g/dl RDW (11.0-16.0) % Plt Count (160-400) X10*3/uL MPV (9.4-12.4) fL Immature Gran % (Auto) (0.0-0.4) % Neut % (Auto) (45-73) % Lymph % (Auto) (20-40) % [place] % (Auto) (2-11) % Eos % (Auto) (0-4) % Baso % (Auto) (0-2) % Lymph # (Auto) (1.2-4.9) X10*3/uL [place] # (Auto) (0.1-1.2) X10*3/uL Eos # (Auto) (0.0-0.4) X10*3/uL Baso # (Auto) (0.0-0.2) X10*3/uL Abs Immat Gran (auto) (0.00-0.03) X10*3/uL Absolute Neuts (auto) (2.0-8.3) x10*3/uL Absolute Nucleated RBC (0.0-0.012) X10*3/uL Nucleated RBC % (auto) (0.0-0.2) /100WBC ESR 12 (0-15) MM/HR PT 11.9 (10.0-13.1) SEC INR 1.0 (0.9-1.1) APTT 25.9 L (26.0-36.4) SEC Sodium (135-145) mmol/L Potassium (3.3-5.1) mmol/L Chloride (96-108) mmol/L Carbon Dioxide (22-29) mmol/L Anion Gap (12-20) BUN (9-16) mg/dL Creatinine (0.5-1.4) mg/dL Estim Creat Clear Calc Estimated GFR Random Glucose (60-115) mg/dL Calcium (8.4-10.2) mg/dL Magnesium (1.6-2.6) mg/dL Total Bilirubin (0.0-1.0) mg/dL Direct Bilirubin (0.0-0.5) mg/dL AST (5-37) U/L ALT (0-40) U/L Alkaline Phosphatase (39-117) U/L Troponin I High Sens (<3.5-35.0) ng/L C-Reactive Protein (< or = 0.50) mg/dL B-Natriuretic Peptide (<100) pg/mL Total Protein (6.5-8.0) g/dL Albumin (3.5-5.0) g/dL Lipase (8-78) U/L Urine Color Urine Appearance Urine pH (5.0-9.0) Ur Specific [place] (1.005-1.025) Urine Protein (Neg-Trace) mg/dL Urine Glucose (UA) (Negative) mg/dL Urine Ketones (Negative) mg/dL Urine Blood (Negative) Urine Nitrite (Negative) Ur Leukocyte Esterase (Negative) COVID-19 (CL) Negative (Negative) COVID-19 Clin Com See Note 05/21/22 05/21/22 Range/Units 18:43 19:19 WBC (4.8-10.8) X10*3/uL RBC (4.60-5.80) X10*6/uL Hgb (14.0-18.0) g/dl Hct (42.0-52.0) % MCV (80.0-98.0) fL MCH (27.0-33.0) pg MCHC (31.0-36.0) g/dl RDW (11.0-16.0) % Plt Count (160-400) X10*3/uL MPV (9.4-12.4) fL Immature Gran % (Auto) (0.0-0.4) % Neut % (Auto) (45-73) % Lymph % (Auto) (20-40) % [place] % (Auto) (2-11) % Eos % (Auto) (0-4) % Baso % (Auto) (0-2) % Lymph # (Auto) (1.2-4.9) X10*3/uL [place] # (Auto) (0.1-1.2) X10*3/uL Eos # (Auto) (0.0-0.4) X10*3/uL Baso # (Auto) (0.0-0.2) X10*3/uL Abs Immat Gran (auto) (0.00-0.03) X10*3/uL Absolute Neuts (auto) (2.0-8.3) x10*3/uL Absolute Nucleated RBC (0.0-0.012) X10*3/uL Nucleated RBC % (auto) (0.0-0.2) /100WBC ESR (0-15) MM/HR PT (10.0-13.1) SEC INR (0.9-1.1) APTT (26.0-36.4) SEC Sodium (135-145) mmol/L Potassium (3.3-5.1) mmol/L Chloride (96-108) mmol/L Carbon Dioxide (22-29) mmol/L Anion Gap (12-20) BUN (9-16) mg/dL Creatinine (0.5-1.4) mg/dL Estim Creat Clear Calc Estimated GFR Random Glucose (60-115) mg/dL Calcium (8.4-10.2) mg/dL Magnesium (1.6-2.6) mg/dL Total Bilirubin (0.0-1.0) mg/dL Direct Bilirubin (0.0-0.5) mg/dL AST (5-37) U/L ALT (0-40) U/L Alkaline Phosphatase (39-117) U/L Troponin I High Sens 878.3 H* D (<3.5-35.0) ng/L C-Reactive Protein (< or = 0.50) mg/dL B-Natriuretic Peptide (<100) pg/mL Total Protein (6.5-8.0) g/dL Albumin (3.5-5.0) g/dL Lipase (8-78) U/L Urine Color Yellow Urine Appearance Clear Urine pH 6.0 (5.0-9.0) Ur Specific [place] >= 1.030 H (1.005-1.025) Urine Protein 30 (1+) H (Neg-Trace) mg/dL Urine Glucose (UA) Negative (Negative) mg/dL Urine Ketones 15 (Negative) mg/dL Urine Blood Trace H (Negative) Urine Nitrite Negative (Negative) Ur Leukocyte Esterase Negative (Negative) COVID-19 (CL) (Negative) COVID-19 Clin Com <YUDITH Jones - Last Filed: 05/21/22 19:33> ECG Data ECG #1: Attestation: I personally reviewed and interpreted this ECG as follows: <YUDITH Mendoza - Last Filed: 05/21/22 18:14> ECG interpretation date: 05/21/22 <YUDITH Mendoza Last Filed: 05/21/22 18:14> ECG interpretation time: 14:30 <YUDITH Mendoza Last Filed: 05/21/22 18:14> Prior ECG tracings: available for review <YUDITH Mendoza Last Filed: 05/21/22 18:14> Interpretation: EKG rhythm with short OH interval rate of 91 QTC 425. No STEMI <YUDITH Mendoza Last Filed: 05/21/22 18:14> ECG #2: Attestation: I personally reviewed and interpreted this ECG as follows: <YUDITH Mendoza Last Filed: 05/21/22 18:14> ECG interpretation date: 05/21/22 <YUDITH Mendoza - Last Filed: 05/21/22 18:14> ECG interpretation time: 17:04 <YUDITH Mendoza - Last Filed: 05/21/22 18:14> Prior ECG tracings: available for review <YUDITH Mendoza - Last Filed: 05/21/22 18:14> Interpretation: EKG normal sinus rhythm at a rate of 81. Pr interval 132. QTC 411. No significant change when compared to prior from today <YUDITH Mendoza - Last Filed: 05/21/22 18:14> Critical Care Time Critical Care Time Critical Care Time: Yes <YUDITH Jones - Last Filed: 05/21/22 19:33> Total Critical Care Time: 35 <YUDITH Jones - Last Filed: 05/21/22 19:33> Attestation: I attest to this time spent taking care of the patient, obtaining history, physical, reviewing labs, imaging, speaking to my attending, speaking to specialist. <YUDITH Jones - Last Filed: 05/21/22 19:33> Discharge Plan Discharge Clinical Impression: Chest pain, TIA (transient ischemic attack), Elevated troponin <YUDITH Mendoza - Last Filed: 05/21/22 18:14> Patient Disposition: Admitted As Inpatient <YUDITH Mendoza Last Filed: 05/21/22 18:14>
[2022-05-21 16:26] LABS: B Type Natriuretic Peptide 12 pg/mL (<100)
--- NOTE | 2022-05-21 16:31 | ECG_ITS ---
Test Reason : CHEST PAIN Blood Pressure : / mmHG Vent. Rate : 081 BPM Atrial Rate : 081 BPM P-R Int : 132 ms QRS Dur : 084 ms QT Int : 354 ms P-R-T Axes : 022 011 033 degrees QTc Int : 411 ms Normal sinus rhythm Normal ECG When compared with ECG of 21-MAY-2022 14:30, No significant change was found Referred By: Jerica Cerna Electronically Signed By:ANDRES ANG
[2022-05-21 16:47] LABS: Erythrocyte Sedimentation Rate 12 MM/HR (0-15)
[2022-05-21] MEDS: ondansetron HCL 4 MG/2 ML VIAL IVPUSH ×2 (16:54→22:56)
--- NOTE | 2022-05-21 17:04 | PHA.MEDREC ---
Pharmacy Consult ? Medication Reconciliation Pharmacy has completed the medication reconciliation. Spoke to patient and his daughter at bedside. Patient claims to be on all his medications, however, I suspect compliance issues as patient does not have a paid claim since 2020.
[2022-05-21] MEDS: 0.9 % Sodium Chloride 500 ML 999 ML IV (17:11)
[2022-05-21 17:18] VITALS: BP 167/82; PULSE 86; RESP 14
[2022-05-21 17:19] LABS: Prothrombin Time 11.9 SEC (10.0-13.1)
[2022-05-21 17:22] LABS: Partial Thromboplastin Time 25.9 SEC (26.0-36.4)
[2022-05-21 17:27] LABS: COVID-19 Test Negative (Negative)
[2022-05-21] MEDS: iohexoL 350 MG/ML 100 ML INFUS..BTL IV (17:47)
[2022-05-21] MEDS: Aspirin Enteric Coated 325 MG TABLET.DR PO (18:16)
[2022-05-21] MEDS: Morphine Sulfate 2 MG/ML CARTRIDGE IVPUSH (18:16)
[2022-05-21] MEDS: Lidocaine 4 % Patch ADH..PATCH 1 PATCH TRANSDERMA (18:17)
[2022-05-21 18:25] VITALS: BP 116/71; BP 156/69; PULSE 79; PULSE 97; RESP 16; RESP 26; TEMP 37.4; O2SAT 100; O2SAT 95
[2022-05-21 19:19] LABS: Troponin-I High Sensitivity 878.3 ng/L (<3.5-35.0)
[2022-05-21 19:31] LABS: Appearance Urine Clear; Color Urine Yellow; Glucose Urine UA Negative (Negative); Leukocyte Esterase Urine Negative (Negative); Nitrite Urine Negative (Negative); Specific Gravity - Urine >= 1.030 (1.005-1.025); Urine Blood Trace (Negative); Urine Ketones 15 mg/dL (Negative); Urine Protein 30 (1+) mg/dL (Neg-Trace)
[2022-05-21 19:36] LABS: Bacteria Urine None Seen (None Seen); Hyaline Casts Urine 0-2 /LPF (0-2); RBC Urine 0-2 /HPF (0-2); Squamous Epithelial Cell Urine 0-2 /HPF (0-2); WBC Urine 0-5 /HPF (0-5)
[2022-05-21 19:47] VITALS: BP 156/69; PULSE 88; RESP 16; TEMP 37.1; O2SAT 98
[2022-05-21] MEDS: Heparin Sodium,Porcine 5,000 UNIT/ML VIAL 4000 UNIT IVPUSH (20:16)
[2022-05-21] MEDS: Heparin Sodium,Porcine/1/2NS 25,000 UNIT/250 ML IV.SOLN 8.14 UNIT IVCONT (20:54)
[2022-05-21 21:01] VITALS: BP 144/75; PULSE 82; RESP 16; TEMP 36.6; O2SAT 97
--- NOTE | 2022-05-21 21:07 | PM.IMHP ---
History of Present Illness Date of Service: 05/21/22 Chief Complaint: right sided chest/back pain History is obtained from patient and his daughter at bedside who knows his past medical history extensively. 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 Patient reports that he has had this pain about a year now, intermittent, but for the past 1-2 weeks has worsened. Pain is intermittent worse with movement to certain areas, coughing makes it worse, and deep breath also make worse. He has been evaluated in the past and was felt to be secondary to pleurisy, patient was given prednisone recently with some relief although no complete resolution. Patient reports recent fatigue, weakness, and overall not feeling well. Patient has history of intermittent fever and fever like symptoms for the past multiple years, workup in the past has not revealed any infection as a cause. He currently has no fever, reports chills, denies any palpitations, reports no left-sided chest pain. Denies any new cough, reports that the cough he has is very chronic for many years, no increased sputum production, he denies any abdominal pain but has nausea with no vomiting vomiting, no diarrhea but has constipation, patient denies any urinary symptoms and no lower extremity edema. he does endorse back pain, mostly in the mid back as well as mid right back. he has also been epxiencing sciatic pain to the right leg for several months. with no numbness or tingling. Pt apparently had an op CT done for the pain, and was told that he has new lung lesions concerning for recurrent malignancy, with plan for PET scan op . On arrival to the ED patient hemodynamically stable with no significant abnormal vitals Labs are significant for WBC 8.1, hgb 12.7, Hct 38.1, Calcium 11.4, alk-phos of 118, initial troponin of 542, repeat 878, CRP of 6.13, lipase of 230, UA negative, Head CT shows chronic microvascular ischemic changes with no CT evidence of acute intracranial abnormality Chest CT angiograms negative for PE, status post right upper lobectomy and partial right lower lobe resection, multiple pulmonary nodules/metastasis bilaterally, mild septal thickening and ground-glass attenuation within both lungs nonspecific, lytic lesion and pathological fracture of the posterior right 10th rib adjacent to the costovertebral joint, T7 compression fracture with mild vertebral body height loss , acuity uncertain. Pt,will be admitted for further management Review of Systems Review of Systems: Yes all other systems are reviewed and are negative [facility] Medical History Abnormal colonoscopy Arthritis Depression Elevated cholesterol GERD (gastroesophageal reflux disease) History of esophageal cancer HTN (hypertension) Hx of cancer of lung Family History Other No family history of coronary artery disease Surgical History H/O colonoscopy History of esophagogastroduodenoscopy (EGD) History of surgery on left wrist Hx of tonsillectomy Social History Are you a primary home care attendant to a significant other at home: No Do you presently have visiting nurse or other home services: No Alcohol intake: never Patient Tobacco Use Status: Never used Tobacco Advance Directives: Yes Advance Directives Information Provided: Yes Advance Directives on File: No Meds Allergies Allergy/AdvReac Type Severity Reaction Status Date / Time erythromycin base Allergy Mild HIVES Verified 11/12/20 08:00 [Erythromycin Base] levofloxacin Allergy Unknown Unknown Verified 11/12/20 08:00 Active Medications: Current Medications Heparin Sodium (Porcine) (Heparin Sodium,Porcine 5,000 Unit/Ml Vial) 2,700 unit 40 unit/kg (2700 unit) IVPUSH PROTOCOL BOLUS PRN; Protocol PRN Reason: 40 unit/kg - Heparin Protocol Heparin Sodium (Porcine) (Heparin Sodium,Porcine 5,000 Unit/Ml Vial) 5,400 unit 80 unit/kg (5400 unit) IVPUSH PROTOCOL BOLUS PRN; Protocol PRN Reason: 80 unit/kg - Heparin Protocol Heparin Sodium/Sodium Chloride (Heparin Sodium,Porcine/1/2ns) 25,000 unit in 250 mls @ 0 mls/hr IVCONT .Q0M DAWOOD; Protocol Last Admin: 05/21/22 20:54 Dose: 12 units/kg/hr, 8.14 mls/hr Pharmacy Consult (Consult Rx Perform Med Rec) 1 each MISCELLANE ONCE PRN PRN Reason: Consult order Home Medications Medication Instructions Recorded Confirmed Last Taken Type atorvastatin 20 mg tablet 20 mg PO BEDTIME 11/07/20 05/21/22 Unknown History losartan 50 mg tablet 50 mg PO DAILY 11/07/20 05/21/22 Unknown History omeprazole 40 mg capsule,delayed 40 mg PO DAILY 11/07/20 05/21/22 Unknown History release sertraline 100 mg tablet 100 mg PO DAILY 11/07/20 05/21/22 11/12/20 07:30 History Columb[place]'s wort 300 mg capsule 300 mg PO DAILY 05/21/22 05/21/22 Unknown History ginkgo biloba 500 mg capsule 500 mg PO DAILY 05/21/22 05/21/22 Unknown History vitamin B complex 1 cap PO DAILY 05/21/22 05/21/22 Unknown History Physical Exam Vital Signs and Narrative: Vital Signs: Last Vital Signs Temp 98.7 F 05/21/22 19:47 Pulse 88 05/21/22 19:47 Resp 16 05/21/22 19:47 BP 156/69 H 05/21/22 19:47 Pulse Ox 98 05/21/22 19:47 O2 Del Method 05/21/22 19:47 BMI result Body Mass Index 28.2 Const: General: cooperative and no acute distress Orientation/consciousness: patient oriented x3 Eyes: General: appearance normal, both eyes and all related structures Chest: Other: reproducible pain, worst on the posterior right chest pain, none on the left Resp: Effort & Inspection: normal respiratory effort Auscultation: clear to auscultation bilaterally Cardio: Rate: regular rate Rhythm: regular rhythm GI: Palpation (GI): Soft to palpation Auscultation: normal bowel sounds Skin: General skin exam: no rashes or lesions noted Neuro: General: patient oriented x3 Cognition (Neuro): normal cognition Extrem: General: Yes normal to inspection and Yes no pedal edema Results Labs CBC and Chem 7: 05/21/22 14:41 05/21/22 14:41 Labs: Laboratory Results - last 24 hr 05/21/22 05/21/22 05/21/22 14:41 14:41 14:41 MCV 85.4 MCH 28.5 MCHC 33.3 RDW 14.0 Plt Count 150 L MPV 9.2 L Immature Gran % (Auto) 1.6 H Neut % (Auto) 71.3 Lymph % (Auto) 19.3 L [place] % (Auto) 6.5 Eos % (Auto) 1.1 Baso % (Auto) 0.2 Lymph # (Auto) 1.6 [place] # (Auto) 0.5 Eos # (Auto) 0.1 Baso # (Auto) 0.0 Abs Immat Gran (auto) 0.13 H Absolute Neuts (auto) 5.8 Absolute Nucleated RBC 0.000 Nucleated RBC % (auto) 0.0 ESR PT INR APTT Anion Gap 18 Estim Creat Clear Calc 50.5 Estimated GFR > 60 Random Glucose 124 H Calcium 11.4 H D Magnesium 1.9 Total Bilirubin 0.4 Direct Bilirubin 0.2 AST 22 ALT 17 Alkaline Phosphatase 118 H D C-Reactive Protein 6.13 H B-Natriuretic Peptide 12 Total Protein 7.5 Albumin 4.5 Lipase 230 H Urine Color Urine Appearance Urine pH Ur Specific [place] Urine Protein Urine Glucose (UA) Urine Ketones Urine Blood Urine Nitrite Ur Leukocyte Esterase Urine RBC Urine WBC Ur Squamous Epith Cells Urine Bacteria Hyaline Casts COVID-19 (CL) COVID-19 Clin Com 05/21/22 05/21/22 05/21/22 14:41 16:52 16:52 MCV MCH MCHC RDW Plt Count MPV Immature Gran % (Auto) Neut % (Auto) Lymph % (Auto) [place] % (Auto) Eos % (Auto) Baso % (Auto) Lymph # (Auto) [place] # (Auto) Eos # (Auto) Baso # (Auto) Abs Immat Gran (auto) Absolute Neuts (auto) Absolute Nucleated RBC Nucleated RBC % (auto) ESR 12 PT 11.9 INR 1.0 APTT 25.9 L Anion Gap Estim Creat Clear Calc Estimated GFR Random Glucose Calcium Magnesium Total Bilirubin Direct Bilirubin AST ALT Alkaline Phosphatase C-Reactive Protein B-Natriuretic Peptide Total Protein Albumin Lipase Urine Color Urine Appearance Urine pH Ur Specific [place] Urine Protein Urine Glucose (UA) Urine Ketones Urine Blood Urine Nitrite Ur Leukocyte Esterase Urine RBC Urine WBC Ur Squamous Epith Cells Urine Bacteria Hyaline Casts COVID-19 (CL) Negative COVID-19 Clin Com See Note 09/07/22 19:19 MCV MCH MCHC RDW Plt Count MPV Immature Gran % (Auto) Neut % (Auto) Lymph % (Auto) [place] % (Auto) Eos % (Auto) Baso % (Auto) Lymph # (Auto) [place] # (Auto) Eos # (Auto) Baso # (Auto) Abs Immat Gran (auto) Absolute Neuts (auto) Absolute Nucleated RBC Nucleated RBC % (auto) ESR PT INR APTT Anion Gap Estim Creat Clear Calc Estimated GFR Random Glucose Calcium Magnesium Total Bilirubin Direct Bilirubin AST ALT Alkaline Phosphatase C-Reactive Protein B-Natriuretic Peptide Total Protein Albumin Lipase Urine Color Yellow Urine Appearance Clear Urine pH 6.0 Ur Specific [place] >= 1.030 H Urine Protein 30 (1+) H Urine Glucose (UA) Negative Urine Ketones 15 Urine Blood Trace H Urine Nitrite Negative Ur Leukocyte Esterase Negative Urine RBC 0-2 Urine WBC 0-5 Ur Squamous Epith Cells 0-2 Urine Bacteria None Seen Hyaline Casts 0-2 COVID-19 (CL) COVID-19 Clin Com Imaging Radiologist's Impressions: Impressions Chest X-Ray 05/21/22 14:52 IMPRESSION: Decreased right lung volume with cystic changes in right upper lung. Large nodule/mass right lower lobe. Chronic reticular nodular changes in both lungs. Chest CTA 05/21/22 17:57 IMPRESSION: 1. No evidence of pulmonary embolus. 2. Status post right upper lobectomy and partial right lower lobe resection. 3. Redemonstrated multiple pulmonary nodule/metastasis bilaterally. 4. Interval development of mild septal thickening and groundglass attenuation within both lungs, nonspecific could represent atypical infection and/or conceivably lymphangitic spread of tumor. 5. Lytic lesion and pathologic fracture the posterior right 10th rib adjacent to the costovertebral joint. 6. T7 superior endplate compression fracture with mild vertebral body height loss, exact acuity uncertain. Correlate clinically with pain referable to this level on exam. 7. Patchy hyperenhancement/hypoperfusion of portions of both kidneys, not well assessed. Findings could represent sequela of renal dysfunction or possibly pyelonephritis. Correlate clinically with renal function and urinalysis. VTE: Head CT 05/21/22 17:57 IMPRESSION: Chronic microvascular ischemic changes with no CT evidence of acute intracranial abnormality. Assessment and Plan (1) Chest pain: Qualifiers: Chest pain type: chest pain on breathing Qualified Code(s): R07.1 - Chest pain on breathing Status: Acute (2) Elevated troponin: Status: Acute (3) Hypercalcemia: Status: Acute (4) Abnormal chest CT: Status: Acute (5) Right rib fracture: Status: Acute (6) Lung nodules: Status: Acute (7) Compression fracture of thoracic spine, non-traumatic: Status: Acute (8) Abnormal colonoscopy: Status: Acute Plan 72-year-old male with a complex malignant history including esophageal cancer status post radiation in , 2 different lung cancers 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 # chest pain - noncardiac - negative PE - likely secondary to the 10th rib fracture - pathological fracture with lytic lesion concerning for metastatic disease - will treat pain with lidocaine patch, morphine p.r.n. # elevated troponin - unlikely be to be secondary to ACS - patient has no EKG changes, this chest pain he is experiencing is noncardiac, localized to the right, reproducible with palpation, cough and movement and has a 10th rib fracture - initially started on heparin drip, but after discussion with Cardiology heparin drip has been discontinued - will trend troponin - cardiology on consult - will obtain echocardiogram # hypercalcemia - likely secondary to metastatic disease - will treat with IV fluid - follow calcium # abnormal chest CT - patient has evidence of metastatic disease, as well as nonspecific ground-glass opacities bilaterally, patient has no cough, no fever, no leukocytosis, therefore infectious etiology is less likely, and I am concerned that this is a lymphangitic spread of tumor rather than acute infection - Hematology-Oncology consult # right rib fracture - pathological, concerning for malignancy/metastasis - will treat with IV morphine, lidocaine patch # compression fracture of the spine - patient denies any recent trauma, or back injury - likely pathological - alk phos elevated - pain control # history of abnormal colonoscopy - possibly source of his current malignancy - patient a colonoscopy done in November of 2020 with abnormal results including esophageal squamous epithelium with high-grade dysplasia as well as transverse colon showing fragments of C cell serrated polyps - at this time Hematology-Oncology has been consult - will likely require a PET scan # hypertension - stable - continue home antihypertensives DVT prophylaxis: Heparin subQ Given the complex presentation, significantly elevated troponin, hypercalcemia, and various other acute finding patient requirement a minimum2 night hospital stay for further workup Quality Stroke Does the patient have a stroke diagnosis?: No VTE Prior VTE?: No VTE Risk Level:: Medical - moderate - high VTE Device Contraindication: Treatment Not Indicated VTE Drug Contraindication: N/A - Med Ordered
[2022-05-21] MEDS: Morphine Sulfate 4 MG/ML CARTRIDGE IVPUSH (22:57)
--- NOTE | 2022-05-21 23:26 | PC.NURSE ---
Heparin drip discontinued at 2320 per MD Warren orders.
[2022-05-22] VITALS (9 sets, daily range): BP systolic 120–164; BP diastolic 63–78; PULSE 69–88; RESP 15–18; TEMP 36.1–36.8; O2SAT 93–98; BMI 26.2; BMI 26.3
[2022-05-22] MEDS: 0.9 % Sodium Chloride Flush 3 ML SYRINGE IVFLUSH ×2 (01:31→10:47)
[2022-05-22 02:01] LABS: Troponin-I High Sensitivity 512.7 ng/L (<3.5-35.0)
[2022-05-22 03:25] LABS: PLT CLUMP 1
[2022-05-22 03:27] LABS: Hematocrit 33.9 % (42.0-52.0); Hemoglobin 11.2 g/dl (14.0-18.0); Mean Corpuscular Hemoglobin 28.2 pg (27.0-33.0); Mean Corpuscular Volume 85.4 fL (80.0-98.0); Mean Platelet Volume 9.5 fL (9.4-12.4); Platelet Count 159 X10*3/uL (160-400); Red Blood Count 3.97 X10*6/uL (4.60-5.80); Red Cell Distribution Width 13.9 % (11.0-16.0); White Blood Count 8.2 X10*3/uL (4.8-10.8)
[2022-05-22 03:31] LABS: INTERNATIONAL NORM RATIO 1.1 (0.9-1.1); Prothrombin Time 12.1 SEC (10.0-13.1)
[2022-05-22 03:52] LABS: Anion Gap 18 (12-20); Blood Urea Nitrogen 30 mg/dL (9-16); Calcium 10.6 mg/dL (8.4-10.2); Carbon Dioxide 26 mmol/L (22-29); Chloride 101 mmol/L (96-108); Creatinine Clr Calc Pharmacy 52.5; Estimated Glomerular Filt Rate > 60; Glucose Random 107 mg/dL (60-115); Potassium 4.5 mmol/L (3.3-5.1); Sodium 140 mmol/L (135-145)
--- NOTE | 2022-05-22 05:39 | PC.NURSE ---
Pt resting comfortably in hospital bed with eyes closed, respirations even and unlabored without distress noted. Pt noted to be sinus on the monitor with VSS. Pt with LR at 100ml/hr infusing through R upper arm #20G per . [facility]. Pt has call nance within reach and RN will continue to monitor.
[2022-05-22 06:56] LABS: MANUAL DIFF FLAG NO
--- NOTE | 2022-05-22 07:00 | CA_ITS ---
Transthoracic Echocardiogram Patient (Last, First, Middle): John Meade, Gender: Male Date of : 1950 Age: 72 Procedure Date: 05/22/2022 Procedure Type: Transthoracic Echocardiogram Location: ER Height: 154.94 cm Weight: 62.6 kg BSA: 1.61 m2 Heart Rate: 70 bpm BP: 144 / 75 mmHg Transportation Technician: AMBAR Referring MD: Danielle Conley MD Symptoms: NSTEMI Study Quality: Adequate ECG Rhythm: Sinus Conclusions: - Normal left ventricular size, thickness, and systolic function. The visually estimated ejection fraction is between 55-60%. There is no evidence of regional wall motion abnormalities. Diastolic function is normal for age. - Mildly increased right ventricular cavity size. There is normal right ventricular systolic function. Findings Left Ventricle Normal left ventricular size, thickness, and systolic function. The visually estimated ejection fraction is between 55-60%. There is no evidence of regional wall motion abnormalities. Diastolic function is normal for age. Right Ventricle Mildly increased right ventricular cavity size. There is normal right ventricular systolic function. Atria The left atrium is likely dilated. The right atrium is likely dilated. Aortic Valve Normal aortic valve structure and function. There is no aortic valve stenosis. There is no aortic valve regurgitation. Mitral Valve Normal mitral valve structure and function. There is no mitral valve regurgitation. There is no mitral valve stenosis. Pulmonic Valve Normal pulmonic valve structure and function. There is no pulmonic valve regurgitation. Tricuspid Valve Normal tricuspid valve structure and function. There is trace tricuspid valve regurgitation. Tricuspid regurgitation envelope is inadequate for calculation of right ventricular systolic pressure. Normal right atrial pressure. Great Vessels All visible segments of the aorta are normal in size. The visualized portions of the pulmonary artery and branches are normal. Venous The inferior vena cava is normal in size and collapses greater than 50% with inspiration. Pericardium/Pleural There is no evidence of pericardial effusion. Prior Study Comparison No prior study available for comparison. Measurements 2D Linear Measurements IVSd: 0.95 0.6-0.9/0.6-1.0 cm LVIDd: 4.29 3.9-5.3/4.2-5.9 cm LVIDd Index: 2.66 2.4-3.2/2.2-3.1 cm/m2 LVIDs: 2.91 2.0-3.6 cm LVPWd: 0.78 0.7-1.1 cm LA Diam: 3.10 2.7-3.8/3.0-4.0 cm LAIDs Index: 1.93 1.5-2.3 cm/m2 LV Mass: 144.56 67-162/88-224 g LV Mass Index: 89.79 43-95/49-115 g/m2 LVOT Diam: 2.20 3.0+(-)1.3 cm 2D Systolic Function EF 4C: 58.70 >55% EF 2C: 58.90 >55% EF BiP: 58.40 >55% Mitral Valve MV Pk E: 0.54 MV PK A: 0.75 MV Decel Time: 234.00 E/A: 0.70 E'Lateral: 10.20 E'Medial: 8.49 E/E' Med: 6.40 E/E' Lat: 5.30 PHT: 69.00 MVA PHT: 3.19 Decel [place]: 2.30 Aortic Valve AoV Pk Geoffrey: 1.25 AoV Mn Geoffrey: 0.84 AoV VTI: 0.27 AoV Pk Grad: 6.00 Aov Mn Grad: 3.00 JOY Cont.VTI: 3.08 LVOT LVOT Pk Geoffrey: 0.92 LVOT Mn Geoffrey: 0.61 LVOT VTI: 0.22 LVOT Pk Grad: 3.00 LVOT Mn Grad: 2.00 LVOT Diam: 2.20 LVOT Area: 3.80 Diastolic Function MV Pk E: 0.54 MV Pk A: 0.75 E/A: 0.70 E'Medial: 8.49 E/E' Med: 6.40 E' Laterial: 10.20 E/E' Lat: 5.30 Right Ventricle TAPSE (mm): 17.80 TVS' Geoffrey: 16.80 Tricuspid Valve RA Press: 3.00 Great Vessels Aorta Sinus of Valsalva: 3.37 2.0-3.[address] [place]: 2.80 1.7-3.4 cm Ao Asc: 2.90 2.1-3.4 cm Ao Arch: 2.90 Updated in Other Vendor System with Status of Final Josef Durand MD electronically signed on 05/22/2022 12:16:22 PM with status of Final
[2022-05-22 07:05] LABS: INTERNATIONAL NORM RATIO 1.1 (0.9-1.1); Prothrombin Time 12.4 SEC (10.0-13.1)
[2022-05-22 07:14] LABS: Basophils Percent Auto 0.3 % (0-2); Eosinophils Absolute Auto 0.1 X10*3/uL (0.0-0.4); Eosinophils Percent Auto 1.5 % (0-4); Hematocrit 35.2 % (42.0-52.0); Hemoglobin 11.9 g/dl (14.0-18.0); Imm Gran Abs Auto 0.09 X10*3/uL (0.00-0.03); Imm Gran Pct Auto 1.3 % (0.0-0.4); Lymphocytes Absolute Auto 1.3 X10*3/uL (1.2-4.9); Lymphocytes Percent Auto 19.4 % (20-40); Mean Corpuscular HGB Conc 33.8 g/dl (31.0-36.0); Mean Corpuscular Hemoglobin 28.7 pg (27.0-33.0); Mean Platelet Volume 9.6 fL (9.4-12.4); Monocytes Absolute Auto 0.5 X10*3/uL (0.1-1.2); Monocytes Percent Auto 7.2 % (2-11); Neutrophils Absolute Auto 4.8 x10*3/uL (2.0-8.3); Neutrophils Percent Auto 70.3 % (45-73); Platelet Count 147 X10*3/uL (160-400); Red Blood Count 4.14 X10*6/uL (4.60-5.80); Red Cell Distribution Width 13.9 % (11.0-16.0); White Blood Count 6.8 X10*3/uL (4.8-10.8)
[2022-05-22] MEDS: polyethylene glycoL 3350 17 GM POWD.PACK PO (08:38)
[2022-05-22] MEDS: Lactated Ringers 1,000 ML 100 ML IVCONT ×2 (08:38→15:33)
[2022-05-22] MEDS: ondansetron HCL 4 MG/2 ML VIAL IVPUSH ×2 (08:43→18:49)
--- NOTE | 2022-05-22 09:39 | MHC.CM.PN ---
CM attempted to reach Patient by phone at [phone] but Daughter/HCP/Claudia answered the phone (CM addressed questions and IMM to both Patient and Claudia via Claudia involving her Father with questions).(original IMM to be given to Patient and a copy to be placed on the chart). Patient lives alone in an apartment and he required no services nor DME [employer]UT [employer]. Home, self care is the tentative goal and CM has initiated and will follow for dc planning. Patient has received [employer] vax X3w and his PCP is Dr. Tony Hammer.
--- NOTE | 2022-05-22 10:02 | P.CONCA_ITS ---
History of Present Illness History of Present Illness Date of Service: 05/22/22 Requesting physician: Janet Dutta Chief complaint: Elevated troponins, CP Narrative: 72-year-old gentleman who has background history of lung cancer with resection, esophageal cancer status post chemoradiation and history of transient ischemic attack who is presenting for chest pain. He said last week he was active and was golfing without any symptoms. He started noticing right-sided a rib pain which was worse with moving his torso. He said the pain worsened yesterday any came to the emergency department. Here high sensitivity troponin levels were 542, 878 and 512. His EKG did not show any dynamic changes. His pain is localized to the right sided ribs. He underwent CT scan which is showing multiple nodules in the lung with concern for metastatic disease as well as lytic lesion in the right sided rib with he is experiencing pain. Denying any shortness of breath. He did not have any pulmonary embolism. Echocardiography was performed which is not showing any wall motion abnormality. His right ventricle is some use look mildly dilated but again no pulmonary embolism has been noted on his CT scan. [facility] Past Medical History Medical History Abnormal colonoscopy Arthritis Depression Elevated cholesterol GERD (gastroesophageal reflux disease) History of esophageal cancer HTN (hypertension) Hx of cancer of lung Family History Family History Other No family history of coronary artery disease Surgical History Surgical History H/O colonoscopy History of esophagogastroduodenoscopy (EGD) History of surgery on left wrist Hx of tonsillectomy Social History Social History Are you a primary property caretaker to a significant other at home: No Do you presently have visiting nurse or other home services: No Alcohol intake: never Patient Tobacco Use Status: Never used Tobacco Advance Directives: Yes Advance Directives Information Provided: Yes Advance Directives on File: No service: No Current occupational status: retired Meds Allergies Allergy/AdvReac Type Severity Reaction Status Date / Time erythromycin base Allergy Mild HIVES Verified 11/12/20 08:00 [Erythromycin Base] levofloxacin Allergy Unknown Unknown Verified 11/12/20 08:00 Active Medications: Current Medications Acetaminophen (Acetaminophen 325 Mg Tablet) 650 mg PO Q6H PRN PRN Reason: Pain, Mild (Pain Scale 1-3) Docusate Sodium (Docusate Sodium 100 Mg Capsule) 100 mg PO DAILY PRN PRN Reason: Constipation Lactated Ringer's (Lr) 1,000 mls @ 100 mls/hr IVCONT .Q10H [facility] Last Admin: 05/22/22 08:38 Dose: 100 mls/hr Morphine Sulfate (Morphine Sulfate 4 Mg/Ml Cartridge) 4 mg IVPUSH Q4H PRN; Protocol PRN Reason: Pain, Severe (Pain Scale 7-10) Last Admin: 05/21/22 22:57 Dose: 4 mg Ondansetron HCl (Ondansetron Hcl 4 Mg/2 Ml Vial) 4 mg IVPUSH Q8H PRN PRN Reason: Nausea and Vomiting Last Admin: 05/22/22 08:43 Dose: 4 mg Pharmacy Consult (Consult Rx Perform Med Rec) 1 each MISCELLANE ONCE PRN PRN Reason: Consult order Polyethylene Glycol (Polyethylene Glycol 3350 17 Gm Powd.Pack) 17 gm PO DAILY [facility] Last Admin: 05/22/22 08:38 Dose: 17 gm Sodium Chloride (0.9 % Sodium Chloride Flush 3 Ml Syringe) [facility] Last Admin: 05/22/22 01:31 Dose: 3 ml Home Medications Medication Instructions Recorded Confirmed Last Taken Type atorvastatin 20 mg tablet 20 mg PO BEDTIME 11/07/20 05/21/22 Unknown History losartan 50 mg tablet 50 mg PO DAILY 11/07/20 05/21/22 Unknown History omeprazole 40 mg capsule,delayed 40 mg PO DAILY 11/07/20 05/21/22 Unknown History release sertraline 100 mg tablet 100 mg PO DAILY 11/07/20 05/21/22 11/12/20 07:30 History [place]'s wort 300 mg capsule 300 mg PO DAILY 05/21/22 05/21/22 Unknown History ginkgo biloba 500 mg capsule 500 mg PO DAILY 05/21/22 05/21/22 Unknown History vitamin B complex 1 cap PO DAILY 05/21/22 05/21/22 Unknown History Physical Exam Vital Signs: Vital Signs: Last Vital Signs Temp 98.1 F 05/22/22 07:53 Pulse 75 05/22/22 07:53 Resp 15 05/22/22 07:53 BP 158/63 H 05/22/22 07:53 Pulse Ox 96 05/22/22 07:53 O2 Del Method 05/22/22 07:53 BMI result Body Mass Index 26.2 GENERAL APPEARANCE: in no acute distress, pleasant. NECK: no carotid bruit, no jugular venous distention. SKIN: no suspicious lesions, warm and dry. HEART: no murmurs, regular rate and rhythm. LUNGS: clear to auscultation bilaterally. Right-sided chest wall tenderness. ABDOMEN: soft, nontender. EXTREMITIES: no edema. PERIPHERAL PULSES: equal. NEUROLOGIC: No gross deficits, AAO X 3 Objective Labs and Meds Result diagrams: 05/22/22 06:52 05/22/22 03:17 Lab results: Laboratory Results - last 24 hr 05/21/22 05/21/22 05/21/22 14:41 14:41 14:41 WBC 8.1 RBC 4.46 L Hgb 12.7 L Hct 38.1 L MCV 85.4 MCH 28.5 MCHC 33.3 RDW 14.0 Plt Count 150 L MPV 9.2 L Immature Gran % (Auto) 1.6 H Neut % (Auto) 71.3 Lymph % (Auto) 19.3 L Bailey % (Auto) 6.5 Eos % (Auto) 1.1 Baso % (Auto) 0.2 Lymph # (Auto) 1.6 Bailey # (Auto) 0.5 Eos # (Auto) 0.1 Baso # (Auto) 0.0 Abs Immat Gran (auto) 0.13 H Absolute Neuts (auto) 5.8 Absolute Nucleated RBC 0.000 Nucleated RBC % (auto) 0.0 ESR PT INR APTT aPTT Heparin Protocol Sodium 140 Potassium 4.7 Chloride 100 Carbon Dioxide 27 Anion Gap 18 BUN 33 H Creatinine 1.05 Estim Creat Clear Calc 50.5 Estimated GFR > 60 Random Glucose 124 H Calcium 11.4 H D Magnesium 1.9 Total Bilirubin 0.4 Direct Bilirubin 0.2 AST 22 ALT 17 Alkaline Phosphatase 118 H D Troponin I High Sens 542.6 H* C-Reactive Protein 6.13 H B-Natriuretic Peptide 12 Total Protein 7.5 Albumin 4.5 Lipase 230 H Urine Color Urine Appearance Urine pH Ur Specific [place] Urine Protein Urine Glucose (UA) Urine Ketones Urine Blood Urine Nitrite Ur Leukocyte Esterase Urine RBC Urine WBC Ur Squamous Epith Cells Urine Bacteria Hyaline Casts COVID-19 (CL) COVID-19 Clin Com 05/21/22 05/21/22 05/21/22 14:41 16:52 16:52 WBC RBC Hgb Hct MCV MCH MCHC RDW Plt Count MPV Immature Gran % (Auto) Neut % (Auto) Lymph % (Auto) Bailey % (Auto) Eos % (Auto) Baso % (Auto) Lymph # (Auto) Bailey # (Auto) Eos # (Auto) Baso # (Auto) Abs Immat Gran (auto) Absolute Neuts (auto) Absolute Nucleated RBC Nucleated RBC % (auto) ESR 12 PT 11.9 INR 1.0 APTT 25.9 L aPTT Heparin Protocol Sodium Potassium Chloride Carbon Dioxide Anion Gap BUN Creatinine Estim Creat Clear Calc Estimated GFR Random Glucose Calcium Magnesium Total Bilirubin Direct Bilirubin AST ALT Alkaline Phosphatase Troponin I High Sens C-Reactive Protein B-Natriuretic Peptide Total Protein Albumin Lipase Urine Color Urine Appearance Urine pH Ur Specific [place] Urine Protein Urine Glucose (UA) Urine Ketones Urine Blood Urine Nitrite Ur Leukocyte Esterase Urine RBC Urine WBC Ur Squamous Epith Cells Urine Bacteria Hyaline Casts COVID-19 (CL) Negative COVID-19 Clin Com See Note 05/21/22 05/21/22 05/22/22 18:43 19:19 01:29 WBC RBC Hgb Hct MCV MCH MCHC RDW Plt Count MPV Immature Gran % (Auto) Neut % (Auto) Lymph % (Auto) Bailey % (Auto) Eos % (Auto) Baso % (Auto) Lymph # (Auto) Bailey # (Auto) Eos # (Auto) Baso # (Auto) Abs Immat Gran (auto) Absolute Neuts (auto) Absolute Nucleated RBC Nucleated RBC % (auto) ESR PT INR APTT aPTT Heparin Protocol Sodium Potassium Chloride Carbon Dioxide Anion Gap BUN Creatinine Estim Creat Clear Calc Estimated GFR Random Glucose Calcium Magnesium Total Bilirubin Direct Bilirubin AST ALT Alkaline Phosphatase Troponin I High Sens 878.3 H* D 512.7 H* C-Reactive Protein B-Natriuretic Peptide Total Protein Albumin Lipase Urine Color Yellow Urine Appearance Clear Urine pH 6.0 Ur Specific [place] >= 1.030 H Urine Protein 30 (1+) H Urine Glucose (UA) Negative Urine Ketones 15 Urine Blood Trace H Urine Nitrite Negative Ur Leukocyte Esterase Negative Urine RBC 0-2 Urine WBC 0-5 Ur Squamous Epith Cells 0-2 Urine Bacteria None Seen Hyaline Casts 0-2 COVID-19 (CL) COVID-19 Clin Com 05/22/22 05/22/22 05/22/22 03:17 03:17 03:17 WBC 8.2 RBC 3.97 L Hgb 11.2 L Hct 33.9 L MCV 85.4 MCH 28.2 MCHC 33.0 RDW 13.9 Plt Count 159 L MPV 9.5 Immature Gran % (Auto) Neut % (Auto) Lymph % (Auto) Bailey % (Auto) Eos % (Auto) Baso % (Auto) Lymph # (Auto) Bailey # (Auto) Eos # (Auto) Baso # (Auto) Abs Immat Gran (auto) Absolute Neuts (auto) Absolute Nucleated RBC 0.000 Nucleated RBC % (auto) 0.0 ESR PT 12.1 INR 1.1 APTT aPTT Heparin Protocol 25.0 L Sodium 140 Potassium 4.5 Chloride 101 Carbon Dioxide 26 Anion Gap 18 BUN 30 H Creatinine 1.02 Estim Creat Clear Calc 52.5 Estimated GFR > 60 Random Glucose 107 Calcium 10.6 H D Magnesium Total Bilirubin Direct Bilirubin AST ALT Alkaline Phosphatase Troponin I High Sens C-Reactive Protein B-Natriuretic Peptide Total Protein Albumin Lipase Urine Color Urine Appearance Urine pH Ur Specific [place] Urine Protein Urine Glucose (UA) Urine Ketones Urine Blood Urine Nitrite Ur Leukocyte Esterase Urine RBC Urine WBC Ur Squamous Epith Cells Urine Bacteria Hyaline Casts COVID-19 (CL) COVID-19 Clin Com 05/22/22 05/22/22 06:51 06:52 WBC 6.8 RBC 4.14 L Hgb 11.9 L Hct 35.2 L MCV 85.0 MCH 28.7 MCHC 33.8 RDW 13.9 Plt Count 147 L MPV 9.6 Immature Gran % (Auto) 1.3 H Neut % (Auto) 70.3 Lymph % (Auto) 19.4 L Bailey % (Auto) 7.2 Eos % (Auto) 1.5 Baso % (Auto) 0.3 Lymph # (Auto) 1.3 Bailey # (Auto) 0.5 Eos # (Auto) 0.1 Baso # (Auto) 0.0 Abs Immat Gran (auto) 0.09 H Absolute Neuts (auto) 4.8 Absolute Nucleated RBC 0.000 Nucleated RBC % (auto) 0.0 ESR PT 12.4 INR 1.1 APTT aPTT Heparin Protocol Sodium Potassium Chloride Carbon Dioxide Anion Gap BUN Creatinine Estim Creat Clear Calc Estimated GFR Random Glucose Calcium Magnesium Total Bilirubin Direct Bilirubin AST ALT Alkaline Phosphatase Troponin I High Sens C-Reactive Protein B-Natriuretic Peptide Total Protein Albumin Lipase Urine Color Urine Appearance Urine pH Ur Specific [place] Urine Protein Urine Glucose (UA) Urine Ketones Urine Blood Urine Nitrite Ur Leukocyte Esterase Urine RBC Urine WBC Ur Squamous Epith Cells Urine Bacteria Hyaline Casts COVID-19 (CL) COVID-19 Clin Com Imaging Radiologist's impression: Impressions Chest X-Ray 05/21/22 14:52 IMPRESSION: Decreased right lung volume with cystic changes in right upper lung. Large nodule/mass right lower lobe. Chronic reticular nodular changes in both lungs. Chest CTA 05/21/22 17:57 IMPRESSION: 1. No evidence of pulmonary embolus. 2. Status post right upper lobectomy and partial right lower lobe resection. 3. Redemonstrated multiple pulmonary nodule/metastasis bilaterally. 4. Interval development of mild septal thickening and groundglass attenuation within both lungs, nonspecific could represent atypical infection and/or conceivably lymphangitic spread of tumor. 5. Lytic lesion and pathologic fracture the posterior right 10th rib adjacent to the costovertebral joint. 6. T7 superior endplate compression fracture with mild vertebral body height loss, exact acuity uncertain. Correlate clinically with pain referable to this level on exam. 7. Patchy hyperenhancement/hypoperfusion of portions of both kidneys, not well assessed. Findings could represent sequela of renal dysfunction or possibly pyelonephritis. Correlate clinically with renal function and urinalysis. VTE: Head CT 05/21/22 17:57 IMPRESSION: Chronic microvascular ischemic changes with no CT evidence of acute intracranial abnormality. Assessment and Plan (1) Chest pain: Qualifiers: Chest pain type: chest pain on breathing Qualified Code(s): R07.1 - Chest pain on breathing Status: Acute (2) Elevated troponin: Status: Acute Plan 72-year-old gentleman who is presenting for chest pain and elevated troponins. His EKG did not show any dynamic changes. His pain is noncardiac and is due to lytic lesions in his right sided ribs. He has background of esophageal and lung cancer. He has lung nodules with concern for metastatic disease. Clinical story is not consistent with acute coronary syndrome currently. He does not have family embolism. His blood pressure is mildly elevated and I think we should control that. Agree with giving him baby aspirin for now. I have explained to him and his daughter that I am unsure about the exact cause of his mildly elevated troponin levels. I think he has enough risk factors that we should work him up for coronary disease but currently he also has lung nodules with lytic lesion the lung and cleared concern for metastatic disease. He is not endorsing any ischemic symptoms currently. I think we can do further evaluation as outpatient. Thank you for allowing me to participate in the care of your patient. Please feel free to contact me if you have any questions. Procedures Date of Service Date of Service: 05/22/22
[2022-05-22] MEDS: Losartan Potassium 50 MG TABLET PO (10:46)
[2022-05-22] MEDS: Acetaminophen 325 MG TABLET 650 MG PO (13:06)
[2022-05-22] MEDS: amLODIPine Besylate 2.5 MG TABLET PO (13:07)
[2022-05-22] MEDS: Aspirin 81 MG TAB.CHEW PO (13:07)
[2022-05-22] MEDS: Omeprazole 40 MG CAPSULE.DR PO (13:07)
--- NOTE | 2022-05-22 13:17 | P.PNIM_ITS ---
Subjective Subjective Date of Service: 05/22/22 Interval History: seen and examined this morning Follow-up for elevated troponins, chest pain No chest pain at this time Review of Systems Review of Systems: Yes all other systems are reviewed and are negative Constitutional Constitutional: Denies chills and Denies fever(s) ENT Ears, Nose, Mouth, and Throat: Denies dizziness Cardiovascular Cardiovascular: Denies chest pain, Denies palpitations and Denies dyspnea Respiratory Respiratory: Denies cough and Denies dyspnea Neurologic Neurologic: Denies dizziness Endocrine Endocrine: Denies palpitations Physical Exam Vital Signs: Vital Signs: Last Vital Signs Temp 97.5 F 05/22/22 12:59 Pulse 77 05/22/22 12:59 Resp 16 05/22/22 12:59 BP 160/73 H 05/22/22 12:59 Pulse Ox 97 05/22/22 12:59 O2 Del Method 05/22/22 12:59 BMI result Body Mass Index 26.2 Const: General: cooperative, comfortable, no acute distress, alert and awake Nutritional Appearance: average body habitus Orientation/consciousness: patient oriented x3 Resp: Effort & Inspection: normal respiratory effort and able to speak in complete sentences Cardio: Rate: regular rate Heart sounds: S1 normal heart sound present and S2 normal heart sound present GI: Inspection: No distended Palpation (GI): Soft to palpation and nontender Neuro: Other: grossly nonfocal General: patient oriented x3 Extrem: General: Yes no pedal edema Objective Data Active Medications Acetaminophen (Acetaminophen 325 Mg Tablet) 650 mg PO Q6H PRN PRN Reason: Pain, Mild (Pain Scale 1-3) Last Admin: 05/22/22 13:06 Dose: 650 mg Documented By: RENAE Amlodipine Besylate (Amlodipine Besylate 2.5 Mg Tablet) 2.5 mg PO DAILY [facility]; Protocol Last Admin: 05/22/22 13:07 Dose: 2.5 mg Documented By: RENAE Aspirin (Aspirin 81 Mg Tab.Chew) 81 mg PO DAILY [facility] Last Admin: 05/22/22 13:07 Dose: 81 mg Documented By: RENAE Atorvastatin Calcium (Atorvastatin Calcium 20 Mg Tablet) 20 mg PO BEDTIME [facility] Docusate Sodium (Docusate Sodium 100 Mg Capsule) 100 mg PO DAILY PRN PRN Reason: Constipation Lactated Ringer's (Lr) 1,000 mls @ 100 mls/hr IVCONT .Q10H [facility] Last Admin: 05/22/22 08:38 Dose: 100 mls/hr Documented By: RENAE Losartan Potassium (Losartan Potassium 50 Mg Tablet) 50 mg PO DAILY [facility]; Protocol Last Admin: 05/22/22 10:46 Dose: 50 mg Documented By: RENAE Morphine Sulfate (Morphine Sulfate 4 Mg/Ml Cartridge) 4 mg IVPUSH Q4H PRN; Pr otocol PRN Reason: Pain, Severe (Pain Scale 7-10) Last Admin: 05/21/22 22:57 Dose: 4 mg Documented By: CHRISTIANORALJeffery Omeprazole (Omeprazole 40 Mg Capsule.Dr) 40 mg PO DAILY@0630 [facility] Last Admin: 05/22/22 13:07 Dose: 40 mg Documented By: RENAE Ondansetron HCl (Ondansetron Hcl 4 Mg/2 Ml Vial) 4 mg IVPUSH Q8H PRN PRN Reason: Nausea and Vomiting Last Admin: 05/22/22 08:43 Dose: 4 mg Documented By: RENAE Pharmacy Consult (Consult Rx Perform Med Rec) 1 each MISCELLANE ONCE PRN PRN Reason: Consult order Polyethylene Glycol (Polyethylene Glycol 3350 17 Gm Powd.Pack) 17 gm PO DAILY [facility] Last Admin: 05/22/22 08:38 Dose: 17 gm Documented By: RENAE Sertraline HCl (Sertraline Hcl 100 Mg Tablet) 100 mg PO DAILY [facility] Sodium Chloride (0.9 % Sodium Chloride Flush 3 Ml Syringe) 3 ml IVFLUSH QSHIFT [facility] Last Admin: 05/22/22 10:47 Dose: 3 ml Documented By: RENAE Labs CBC & Chem 7: 05/22/22 06:52 05/22/22 03:17 Labs: Laboratory Results - last 24 hr 05/21/22 05/21/22 05/21/22 14:41 14:41 14:41 MCV 85.4 MCH 28.5 MCHC 33.3 RDW 14.0 Plt Count 150 L MPV 9.2 L Immature Gran % (Auto) 1.6 H Neut % (Auto) 71.3 Lymph % (Auto) 19.3 L [place] % (Auto) 6.5 Eos % (Auto) 1.1 Baso % (Auto) 0.2 Lymph # (Auto) 1.6 [place] # (Auto) 0.5 Eos # (Auto) 0.1 Baso # (Auto) 0.0 Abs Immat Gran (auto) 0.13 H Absolute Neuts (auto) 5.8 Absolute Nucleated RBC 0.000 Nucleated RBC % (auto) 0.0 ESR PT INR APTT aPTT Heparin Protocol Anion Gap 18 Estim Creat Clear Calc 50.5 Estimated GFR > 60 Random Glucose 124 H Calcium 11.4 H D Magnesium 1.9 Total Bilirubin 0.4 Direct Bilirubin 0.2 AST 22 ALT 17 Alkaline Phosphatase 118 H D Total Creatine Kinase C-Reactive Protein 6.13 H B-Natriuretic Peptide 12 Total Protein 7.5 Albumin 4.5 Lipase 230 H Urine Color Urine Appearance Urine pH Ur Specific [place] Urine Protein Urine Glucose (UA) Urine Ketones Urine Blood Urine Nitrite Ur Leukocyte Esterase Urine RBC Urine WBC Ur Squamous Epith Cells Urine Bacteria Hyaline Casts COVID-19 (CL) COVID-19 Clin Com 05/21/22 05/21/22 05/21/22 14:41 16:52 16:52 MCV MCH MCHC RDW Plt Count MPV Immature Gran % (Auto) Neut % (Auto) Lymph % (Auto) [place] % (Auto) Eos % (Auto) Baso % (Auto) Lymph # (Auto) [place] # (Auto) Eos # (Auto) Baso # (Auto) Abs Immat Gran (auto) Absolute Neuts (auto) Absolute Nucleated RBC Nucleated RBC % (auto) ESR 12 PT 11.9 INR 1.0 APTT 25.9 L aPTT Heparin Protocol Anion Gap Estim Creat Clear Calc Estimated GFR Random Glucose Calcium Magnesium Total Bilirubin Direct Bilirubin AST ALT Alkaline Phosphatase Total Creatine Kinase C-Reactive Protein B-Natriuretic Peptide Total Protein Albumin Lipase Urine Color Urine Appearance Urine pH Ur Specific [place] Urine Protein Urine Glucose (UA) Urine Ketones Urine Blood Urine Nitrite Ur Leukocyte Esterase Urine RBC Urine WBC Ur Squamous Epith Cells Urine Bacteria Hyaline Casts COVID-19 (CL) Negative COVID-19 Clin Com See Note 05/21/22 05/22/22 05/22/22 19:19 03:17 03:17 MCV 85.4 MCH 28.2 MCHC 33.0 RDW 13.9 Plt Count 159 L MPV 9.5 Immature Gran % (Auto) Neut % (Auto) Lymph % (Auto) [place] % (Auto) Eos % (Auto) Baso % (Auto) Lymph # (Auto) [place] # (Auto) Eos # (Auto) Baso # (Auto) Abs Immat Gran (auto) Absolute Neuts (auto) Absolute Nucleated RBC 0.000 Nucleated RBC % (auto) 0.0 ESR PT 12.1 INR 1.1 APTT aPTT Heparin Protocol 25.0 L Anion Gap Estim Creat Clear Calc Estimated GFR Random Glucose Calcium Magnesium Total Bilirubin Direct Bilirubin AST ALT Alkaline Phosphatase Total Creatine Kinase C-Reactive Protein B-Natriuretic Peptide Total Protein Albumin Lipase Urine Color Yellow Urine Appearance Clear Urine pH 6.0 Ur Specific [place] >= 1.030 H Urine Protein 30 (1+) H Urine Glucose (UA) Negative Urine Ketones 15 Urine Blood Trace H Urine Nitrite Negative Ur Leukocyte Esterase Negative Urine RBC 0-2 Urine WBC 0-5 Ur Squamous Epith Cells 0-2 Urine Bacteria None Seen Hyaline Casts 0-2 COVID-19 (CL) COVID-19 Clin Com 05/22/22 05/22/22 05/22/22 03:17 06:51 06:52 MCV 85.0 MCH 28.7 MCHC 33.8 RDW 13.9 Plt Count 147 L MPV 9.6 Immature Gran % (Auto) 1.3 H Neut % (Auto) 70.3 Lymph % (Auto) 19.4 L [place] % (Auto) 7.2 Eos % (Auto) 1.5 Baso % (Auto) 0.3 Lymph # (Auto) 1.3 [place] # (Auto) 0.5 Eos # (Auto) 0.1 Baso # (Auto) 0.0 Abs Immat Gran (auto) 0.09 H Absolute Neuts (auto) 4.8 Absolute Nucleated RBC 0.000 Nucleated RBC % (auto) 0.0 ESR PT 12.4 INR 1.1 APTT aPTT Heparin Protocol Anion Gap 18 Estim Creat Clear Calc 52.5 Estimated GFR > 60 Random Glucose 107 Calcium 10.6 H D Magnesium Total Bilirubin Direct Bilirubin AST ALT Alkaline Phosphatase Total Creatine Kinase 85 C-Reactive Protein B-Natriuretic Peptide Total Protein Albumin Lipase Urine Color Urine Appearance Urine pH Ur Specific [place] Urine Protein Urine Glucose (UA) Urine Ketones Urine Blood Urine Nitrite Ur Leukocyte Esterase Urine RBC Urine WBC Ur Squamous Epith Cells Urine Bacteria Hyaline Casts COVID-19 (CL) COVID-19 Clin Com Assessment and Plan (1) Hypercalcemia: Status: Acute (2) Compression fracture of thoracic spine, non-traumatic: Status: Acute (3) Right rib fracture: Status: Acute (4) Chest pain: Status: Acute Plan 72-year-old male with a complex malignant history including esophageal cancer status post radiation in 98, 2 different lung cancers 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 chest pain may be secondary to the 10th rib fracture - pathological fracture with lytic lesion concerning for metastatic disease - will treat pain with lidocaine patch, morphine p.r.n. elevated troponin trops peaked around 800 not r/t ACS per cardiology echo done - no wall motion abnormality continue daily baby aspirin , added this admission - outpatient ischemic workup recommended hypercalcemia likely secondary to metastatic disease - continue IV fluid - follow calcium abnormal chest CT - patient has evidence of metastatic disease, as well as nonspecific ground- glass opacities bilaterally, patient has no cough, no fever, no leukocytosis, therefore infectious etiology is less likely, and this could represent lymphangitic spread of tumor rather than acute infection - Hematology-Oncology consult pending right rib fracture - pathological, concerning for malignancy/metastasis - continue IV morphine, lidocaine patch compression fracture of the spine - likely pathological - alk phos elevated - pain control thrombocytopenia Appears chronic Follow CBC, outpatient follow-up history of abnormal endoscopy - possibly source of his current malignancy - patient a colonoscopy done in November of 2020 with abnormal results including e sophageal squamous epithelium with high-grade dysplasia as well as transverse colon showing fragments of C cell serrated polyps - at this time Hematology-Oncology has been consult - will likely require a PET scan hypertension bp elevated - continue home antihypertensives -low dose norvasc added DVT prophylaxis: Heparin subQ attending - dr. ford the patient requires ongoing inpatient hospitalization due to hypercalcemia, pain secondary to acute fracture, oncology consult Quality Stroke Does the patient have a stroke diagnosis?: No VTE Prior VTE?: No VTE Risk Level:: Medical - moderate - high VTE Device Contraindication: Treatment Not Indicated VTE Drug Contraindication: N/A - Med Ordered
[2022-05-22] MEDS: Heparin Sodium,Porcine 5,000 UNIT/ML VIAL 5000 UNIT SUBCUT (14:27)
[2022-05-22] MEDS: oxyCODONE HCl Immed Release 5 MG TABLET PO (14:28)
[2022-05-22] MEDS: Morphine Sulfate 4 MG/ML CARTRIDGE IVPUSH (15:33)
[2022-05-22] MEDS: Famotidine/PF 20 MG/2 ML VIAL IVPUSH (15:33)
[2022-05-22] MEDS: Atorvastatin Calcium 20 MG TABLET PO (21:06)
[2022-05-22] MEDS: Prochlorperazine Edisylate 10 MG/2 ML VIAL 5 MG IVPUSH (21:06)
[2022-05-22] MEDS: Magnesium Hydrox/Alum Hydrox 30 ML ORAL.SUSP 15 ML PO (23:14)
[2022-05-23] VITALS (9 sets, daily range): BP systolic 109–187; BP diastolic 66–90; PULSE 73–86; RESP 16–20; TEMP 36.4–36.8; O2SAT 95–97
[2022-05-23] MEDS: Heparin Sodium,Porcine 5,000 UNIT/ML VIAL 5000 UNIT SUBCUT ×2 (00:39→13:22)
[2022-05-23] MEDS: hydrALAZINE HCl 20 MG/ML VIAL 5 MG IVPUSH (00:39)
[2022-05-23] MEDS: Lactated Ringers 1,000 ML 100 ML IVCONT (00:39)
--- NOTE | 2022-05-23 01:51 | PC.NURSE ---
vitals taken at 1230, BP recorded at 187/84, manual recheck recorded at 172/106. Overnight hospitalist notified, 5 mg hydralazine one time ordered and administered. BP rechecked at 0115, recorded at 117/78.
[2022-05-23] MEDS: Omeprazole 40 MG CAPSULE.DR PO (05:41)
[2022-05-23 07:10] LABS: Alanine Aminotransferase 14 U/L (0-40); Albumin Level 3.8 g/dL (3.5-5.0); Alkaline Phosphatase 103 U/L (39-117); Anion Gap 17 (12-20); Aspartate Amino Transferase 20 U/L (5-37); Bilirubin Total 0.4 mg/dL (0.0-1.0); Blood Urea Nitrogen 22 mg/dL (9-16); Calcium 10.3 mg/dL (8.4-10.2); Carbon Dioxide 26 mmol/L (22-29); Chloride 99 mmol/L (96-108); Creatinine Clr Calc Pharmacy 63.3; Estimated Glomerular Filt Rate > 60; Glucose Random 92 mg/dL (60-115); Potassium 4.3 mmol/L (3.3-5.1); Sodium 138 mmol/L (135-145); Total Protein 6.3 g/dL (6.5-8.0)
[2022-05-23 07:21] LABS: Glucose, Whole Blood 95 mg/dL (60-115)
[2022-05-23] MEDS: Losartan Potassium 50 MG TABLET PO (07:56)
[2022-05-23] MEDS: Lidocaine 4 % Patch ADH..PATCH 1 PATCH TRANSDERMA (07:56)
[2022-05-23] MEDS: Aspirin 81 MG TAB.CHEW PO (07:56)
[2022-05-23] MEDS: Sertraline HCL 100 MG TABLET PO (07:57)
[2022-05-23] MEDS: amLODIPine Besylate 2.5 MG TABLET PO (07:57)
[2022-05-23] MEDS: Morphine Sulfate 4 MG/ML CARTRIDGE IVPUSH ×2 (07:57→12:14)
[2022-05-23] MEDS: Magnesium Hydrox/Alum Hydrox 30 ML ORAL.SUSP 15 ML PO (11:50)
[2022-05-23] MEDS: 0.9 % Sodium Chloride Flush 3 ML SYRINGE IVFLUSH ×3 (11:51→21:27)
--- NOTE | 2022-05-23 13:21 | PM.HEMONCCN ---
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 All three were resectedand he has remained in remission untol now He was seen by me in [facility] ([place], [place]) regularly until 2018 when he stopped coming to the office. He now has several pulmonary nodules consistent with recurrent disease. Histology in not yet available. Review of Systems - Eyes Reports other - ENT Reports other - Cardiovascular Reports chest pain - Respiratory Reports change in phlegm color, Reports dyspnea on exertion - Gastrointestinal Reports abdominal pain - Genitourinary Genitourinary: Reports urinary incontinence - Musculoskeletal Reports muscle weakness - Integumentary/Breasts Skin/Breast: Reports other - Neurologic Reports confusion, Denies abnormal speech [facility] Medical History: Medical History (Last Reviewed 05/22/22 @ 22:46 by Kelby Lees RN) Abnormal colonoscopy Arthritis Depression Elevated cholesterol GERD (gastroesophageal reflux disease) History of esophageal cancer HTN (hypertension) Hx of cancer of lung Family History: Family History (Last Reviewed 05/22/22 @ 22:46 by Kelby Lees RN) Other No family history of coronary artery disease Surgical History: Surgical History (Last Reviewed 05/22/22 @ 22:46 by Kelby Lees RN) H/O colonoscopy History of esophagogastroduodenoscopy (EGD) History of surgery on left wrist Hx of tonsillectomy Social History: Social History (Last Reviewed 05/22/22 @ 22:46 by Kelby Lees RN) Living Situation History: Household Members: Spouse Housing: House Are you a primary respiratory care specialist to a significant other at home: No Do you presently have visiting nurse or other home services: No Tobacco History: Patient Tobacco Use Status: Never used Tobacco Advance Directives: Advance Directives Date on File: 05/22/22 Occupation Assessmet: service: No Current occupational status: retired Home Medications and Allergies Current Medications: Current Medications Acetaminophen (Acetaminophen 325 Mg Tablet) 650 mg PO Q6H PRN PRN Reason: Pain, Mild (Pain Scale 1-3) Last Admin: 05/22/22 13:06 Dose: 650 mg Al Hydroxide/Mg Hydroxide (Magnesium Hydrox/Alum Hydrox 30 Ml Oral.Susp) 15 ml PO Q4H PRN PRN Reason: Heartburn Last Admin: 05/23/22 11:50 Dose: 15 ml Amlodipine Besylate (Amlodipine Besylate 5 Mg Tablet) 5 mg PO DAILY [facility]; Protocol Aspirin (Aspirin 81 Mg Tab.Chew) 81 mg PO DAILY [facility] Last Admin: 05/23/22 07:56 Dose: 81 mg Atorvastatin Calcium (Atorvastatin Calcium 20 Mg Tablet) 20 mg PO BEDTIME [facility] Last Admin: 05/22/22 21:06 Dose: 20 mg Docusate Sodium (Docusate Sodium 100 Mg Capsule) 100 mg PO DAILY PRN PRN Reason: Constipation Heparin Sodium (Porcine) (Heparin Sodium,Porcine 5,000 Unit/Ml Vial) 5,000 unit SUBCUT Q12H [facility] Last Admin: 05/23/22 00:39 Dose: 5,000 unit Lidocaine (Lidocaine 4 % Patch Adh..Patch) 1 patch TRANSDERMA DAILY [facility]; Protocol Last Admin: 05/23/22 07:56 Dose: 1 patch Losartan Potassium (Losartan Potassium 50 Mg Tablet) 50 mg PO DAILY [facility]; Protocol Last Admin: 05/23/22 07:56 Dose: 50 mg Morphine Sulfate (Morphine Sulfate 4 Mg/Ml Cartridge) 4 mg IVPUSH Q4H PRN; Protocol PRN Reason: Pain, Severe (Pain Scale 7-10) Last Admin: 05/23/22 12:14 Dose: 4 mg Omeprazole (Omeprazole 40 Mg Capsule.Dr) 40 mg PO DAILY@0630 [facility] Last Admin: 05/23/22 05:41 Dose: 40 mg Ondansetron HCl (Ondansetron Hcl 4 Mg/2 Ml Vial) 4 mg IVPUSH Q8H PRN PRN Reason: Nausea and Vomiting Last Admin: 05/22/22 18:49 Dose: 4 mg Oxycodone HCl (Oxycodone Hcl Immed Release 5 Mg Tablet) 5 mg PO Q6H PRN PRN Reason: Pain, Moderate (Pain Scale 4-6 Last Admin: 05/22/22 14:28 Dose: 5 mg Pharmacy Consult (Consult Rx Perform Med Rec) 1 each MISCELLANE ONCE PRN PRN Reason: Consult order Polyethylene Glycol (Polyethylene Glycol 3350 17 Gm Powd.Pack) 17 gm PO DAILY [facility] Last Admin: 05/23/22 10:08 Dose: Not Given Sertraline HCl (Sertraline Hcl 100 Mg Tablet) 100 mg PO DAILY [facility] Last Admin: 05/23/22 07:57 Dose: 100 mg Sodium Chloride (0.9 % Sodium Chloride Flush 3 Ml Syringe) 3 ml IVFLUSH QSHIFT [facility] Last Admin: 05/23/22 11:51 Dose: 3 ml Home Medications Medication Instructions Recorded Confirmed Type atorvastatin 20 mg tablet 20 mg PO BEDTIME 11/07/20 05/21/22 History losartan 50 mg tablet 50 mg PO DAILY 11/07/20 05/21/22 History omeprazole 40 mg capsule,delayed 40 mg PO DAILY 11/07/20 05/21/22 History release sertraline 100 mg tablet 100 mg PO DAILY 11/07/20 05/21/22 History [place]'s wort 300 mg capsule 300 mg PO DAILY 05/21/22 05/21/22 History ginkgo biloba 500 mg capsule 500 mg PO DAILY 05/21/22 05/21/22 History vitamin B complex 1 cap PO DAILY 05/21/22 05/21/22 History Allergies Allergy/AdvReac Type Severity Reaction Status Date / Time erythromycin base Allergy Mild HIVES Verified 11/12/20 08:00 [Erythromycin Base] levofloxacin Allergy Unknown Unknown Verified 11/12/20 08:00 Physical Exam Vital signs: Vital Signs Temp 97.6 F 05/23/22 11:51 Pulse 86 05/23/22 11:51 Resp 17 05/23/22 11:51 BP 181/86 H 05/23/22 13:00 Pulse Ox 95 05/23/22 11:51 O2 Del Method 05/23/22 11:51 Intake & Output 05/22/22 05/23/22 05/23/22 18:59 06:59 18:59 Intake Total 1271.518 / 2181.518 910 / 2181.518 745 / 745 Output Total 500 / 1600 1100 / 1600 Balance 771.518 / 581.518 -190 / 581.518 745 / 745 Urine Output (Average ml/kg/hr) 0.66 1.45 1.45 Intake: Intake, Oral Amount 480 / 480 Intake, IV Amount 791.518 / 1701.518 910 / 1701.518 745 / 745 Heparin Sodium,Porcine/1/2NS 25 99.851 / 99.851 ,000 unit In 250 ml @ Per Protocol IVCONT .Q0M [facility] Rx#: [id number] Lactated Ringers 1,000 ml @ 100 691.667 / 1601.667 910 / 1601.667 745 / 745 mls/hr IVCONT .Q10H [facility] Rx#: [id number] Output: Output, Urine Amount 500 / 1600 1100 / 1600 Output, Stool Amount 0 / 0 Other: Number of Unmeasured Voids 2 Number of Bowel Movements 0 Urine Bathroom Urine Color Yellow Weight 63.2 kg [place] Weight in Grams 60801 Weight 63.2 kg - Constitutional Present: no acute distress - Routine HEENT Exam Head: Present: atraumatic Eye: Present: conjunctival injection - Routine Neck Exam Present: supple, full ROM - Routine Respiratory Exam Present: decreased breath sounds - Routine Abdominal Exam Present: diminished bowel sounds - Routine Skin Exam Present: intact - Routine Neurological Exam Present: alert, oriented X3, CN II-XII intact Hem/Onc Consult Result - Labs CBC & Chem 7: 05/22/22 06:52 05/23/22 05:42 Labs: BMP 05/23/22 05:42 Sodium 138 Potassium 4.3 Chloride 99 Carbon Dioxide 26 BUN 22 H Creatinine 0.82 Calcium 10.3 H Liver Function 05/23/22 Range/Units 05:42 Total Bilirubin 0.4 (0.0-1.0) mg/dL AST 20 (5-37) U/L ALT 14 (0-40) U/L Alkaline Phosphatase 103 (39-117) U/L Albumin 3.8 (3.5-5.0) g/dL Assessment and Plan Patient Active problem list reviewed?: Yes (1) Abnormal chest CT Start date: 05/23/22 Status: Acute Assessment and plan: I will speak at length with him about his desire or no for treatment. If he desires treatment he will need a tissue diagnosis. If so, will check with pulmonary about utility of bronchoscopy versus FNA of mass or rib. - Time Spent With Patient Time Spent with Patient (in minutes): 30
[2022-05-23] MEDS: amLODIPine Besylate 5 MG TABLET PO (13:23)
--- NOTE | 2022-05-23 15:05 | MHC.CM.PN ---
DP Home No services Family will provide transportation home. Per MD rounds no DC today. An Oncology consult is scheduled today.
--- NOTE | 2022-05-23 16:12 | P.PNIM_ITS ---
Subjective Subjective Date of Service: 05/23/22 Interval History: Seen and examined this morning Follow-up for right rib fracture, compression fracture, chest pain has rohan right sided rib pain with movement, no pleuritic pain, no sob Review of Systems Review of Systems: Yes all other systems are reviewed and are negative Constitutional Constitutional: Denies chills and Denies fever(s) ENT Ears, Nose, Mouth, and Throat: Denies dizziness Cardiovascular Cardiovascular: Denies chest pain, Denies palpitations and Denies dyspnea Respiratory Respiratory: Denies cough and Denies dyspnea Gastrointestinal Gastrointestinal: Denies abdominal pain, Denies nausea and Denies vomiting Neurologic Neurologic: Denies dizziness Endocrine Endocrine: Denies palpitations Physical Exam Vital Signs: Vital Signs: Last Vital Signs Temp 97.9 F 05/23/22 15:15 Pulse 83 05/23/22 15:15 Resp 20 05/23/22 15:15 BP 109/66 05/23/22 15:15 Pulse Ox 97 05/23/22 15:15 O2 Del Method 05/23/22 15:15 BMI result Body Mass Index 26.3 Const: General: cooperative, comfortable, no acute distress, alert and awake Nutritional Appearance: average body habitus Orientation/consciousness: patient oriented x3 Resp: Effort & Inspection: normal respiratory effort and able to speak in complete sentences Cardio: Rate: regular rate Heart sounds: S1 normal heart sound present and S2 normal heart sound present GI: Inspection: No distended Palpation (GI): Soft to palpation and nontender Neuro: Other: grossly nonfocal General: patient oriented x3 Extrem: General: Yes no pedal edema Objective Data Active Medications Acetaminophen (Acetaminophen 325 Mg Tablet) 650 mg PO Q6H PRN PRN Reason: Pain, Mild (Pain Scale 1-3) Last Admin: 05/22/22 13:06 Dose: 650 mg Documented By: RENAE Al Hydroxide/Mg Hydroxide (Magnesium Hydrox/Alum Hydrox 30 Ml Oral.Susp) 15 ml PO Q4H PRN PRN Reason: Heartburn Last Admin: 05/23/22 11:50 Dose: 15 ml Documented By: TAYE Amlodipine Besylate (Amlodipine Besylate 5 Mg Tablet) 5 mg PO DAILY [facility]; Protocol Aspirin (Aspirin 81 Mg Tab.Chew) 81 mg PO DAILY [facility] Last Admin: 05/23/22 07:56 Dose: 81 mg Documented By: TAYE Atorvastatin Calcium (Atorvastatin Calcium 20 Mg Tablet) 20 mg PO BEDTIME [facility] Last Admin: 05/22/22 21:06 Dose: 20 mg Documented By: LILIANA Docusate Sodium (Docusate Sodium 100 Mg Capsule) 100 mg PO DAILY PRN PRN Reason: Constipation Heparin Sodium (Porcine) (Heparin Sodium,Porcine 5,000 Unit/Ml Vial) 5,000 unit SUBCUT Q12H [facility] Last Admin: 05/23/22 13:22 Dose: 5,000 unit Documented By: TAYE Lidocaine (Lidocaine 4 % Patch Adh..Patch) 1 patch TRANSDERMA DAILY [facility]; Protocol Last Admin: 05/23/22 07:56 Dose: 1 patch Documented By: TAYE Losartan Potassium (Losartan Potassium 50 Mg Tablet) 50 mg PO DAILY [facility]; Protocol Last Admin: 05/23/22 07:56 Dose: 50 mg Documented By: TAYE Morphine Sulfate (Morphine Sulfate 4 Mg/Ml Cartridge) 4 mg IVPUSH Q4H PRN; Protocol PRN Reason: Pain, Severe (Pain Scale 7-10) Last Admin: 05/23/22 12:14 Dose: 4 mg Documented By: TAYE Omeprazole (Omeprazole 40 Mg Capsule.Dr) 40 mg PO DAILY@0630 [facility] Last Admin: 05/23/22 05:41 Dose: 40 mg Documented By: LILIANA Ondansetron HCl (Ondansetron Hcl 4 Mg/2 Ml Vial) 4 mg IVPUSH Q8H PRN PRN Reason: Nausea and Vomiting Last Admin: 05/22/22 18:49 Dose: 4 mg Documented By: MARY Oxycodone HCl (Oxycodone Hcl Immed Release 5 Mg Tablet) 5 mg PO Q6H PRN PRN Reason: Pain, Moderate (Pain Scale 4-6 Last Admin: 05/22/22 14:28 Dose: 5 mg Documented By: RENAE Pharmacy Consult (Consult Rx Perform Med Rec) 1 each MISCELLANE ONCE PRN PRN Reason: Consult order Polyethylene Glycol (Polyethylene Glycol 3350 17 Gm Powd.Pack) 17 gm PO DAILY [facility] Last Admin: 05/23/22 10:08 Dose: Not Given Documented By: TAYE Non-Admin Reason: Patient Refused Sertraline HCl (Sertraline Hcl 100 Mg Tablet) 100 mg PO DAILY [facility] Last Admin: 05/23/22 07:57 Dose: 100 mg Documented By: TAYE Sodium Chloride (0.9 % Sodium Chloride Flush 3 Ml Syringe) 3 ml IVFLUSH QSHIFT [facility] Last Admin: 05/23/22 11:51 Dose: 3 ml Documented By: TAYE Labs CBC & Chem 7: 05/22/22 06:52 05/23/22 05:42 Labs: Laboratory Results - last 24 hr 05/23/22 05/23/22 05:42 07:00 Anion Gap 17 Estim Creat Clear Calc 63.3 Estimated GFR > 60 POC Glucose 95 Random Glucose 92 Calcium 10.3 H Total Bilirubin 0.4 AST 20 ALT 14 Alkaline Phosphatase 103 Total Protein 6.3 L Albumin 3.8 Assessment and Plan (1) Abnormal chest CT: Status: Acute (2) Hypercalcemia: Status: Acute (3) Compression fracture of thoracic spine, non-traumatic: Status: Acute (4) Right rib fracture: Status: Acute Plan 72-year-old male with a complex malignant history including esophageal cancer status post radiation in 98, 2 different lung cancers 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 chest pain may be secondary to the 10th rib fracture - pathological fracture with lytic lesion concerning for metastatic disease - will treat pain with lidocaine patch, morphine p.r.n. - pain controlled, wean IV meds elevated troponin trops peaked around 800 not r/t ACS per cardiology echo done - no wall motion abnormality continue daily baby aspirin , added this admission - outpatient ischemic workup recommended hypercalcemia likely secondary to ?metastatic dz - down to 10.3 with IVF - continue IV fluid abnormal chest CT - patient has evidence of metastatic disease, as well as nonspecific ground- glass opacities bilaterally, patient has no cough, no fever, no leukocytosis, therefore infectious etiology is less likely, and this could represent lymphangitic spread of tumor rather than acute infection - Hematology-Oncology consult pending right rib fracture - pathological, concerning for malignancy/metastasis - continue IV morphine, lidocaine patch compression fracture of the spine - likely pathological - alk phos elevated - pain control thrombocytopenia Appears chronic Follow CBC, outpatient follow-up history of abnormal endoscopy - patient a endoscopy done in November of 2020 with abnormal results including esophageal squamous epithelium with high-grade dysplasia - Hematology-Oncology consult pending - may require a PET scan hypertension bp elevated - continue home antihypertensives -low dose norvasc added - will give additional dose DVT prophylaxis: Heparin subQ attending - dr. ford the patient requires ongoing inpatient hospitalization due to hypercalcemia, pain secondary to acute fracture, oncology consult Quality Stroke Does the patient have a stroke diagnosis?: No VTE Prior VTE?: No VTE Risk Level:: Medical - moderate - high VTE Device Contraindication: Treatment Not Indicated VTE Drug Contraindication: N/A - Med Ordered
--- NOTE | 2022-05-23 17:19 | PC.NURSE ---
pt had persistent high blood pressures today. AM pressure was 175/80. Gave norvasc and losartan as directed. BP around lunchtime was 177/78. pt was c/o of pain, so morphine was administered per orders. BP was taken later and was 181/86. Provider MALLORIE Dutta was notified and ordered a one-time 5 mg dose of norvasc. BP at approx 1500 was 106/66. Provider notified and requested continued monitoring of patients BPs.
[2022-05-23] MEDS: ondansetron HCL 4 MG/2 ML VIAL IVPUSH (18:32)
[2022-05-23] MEDS: Morphine Sulfate 4 MG/ML CARTRIDGE 2 MG IVPUSH (18:32)
[2022-05-23] MEDS: Atorvastatin Calcium 20 MG TABLET PO (21:27)
[2022-05-24] MEDS: Heparin Sodium,Porcine 5,000 UNIT/ML VIAL 5000 UNIT SUBCUT (02:07)
[2022-05-24 03:04] VITALS: BP 159/77; PULSE 78; RESP 20; TEMP 37.2; O2SAT 94
[2022-05-24] MEDS: Omeprazole 40 MG CAPSULE.DR PO (06:08)
[2022-05-24 08:00] VITALS: BP 185/84; PULSE 81; RESP 18; TEMP 36.4; O2SAT 94
[2022-05-24] MEDS: amLODIPine Besylate 5 MG TABLET PO (08:21)
[2022-05-24] MEDS: Losartan Potassium 50 MG TABLET PO (08:21)
[2022-05-24] MEDS: Sertraline HCL 100 MG TABLET PO (08:21)
[2022-05-24] MEDS: oxyCODONE HCl Immed Release 5 MG TABLET PO ×2 (08:21→14:42)
[2022-05-24] MEDS: Aspirin 81 MG TAB.CHEW PO (08:21)
[2022-05-24] MEDS: Lidocaine 4 % Patch ADH..PATCH 1 PATCH TRANSDERMA (08:23)
[2022-05-24] MEDS: 0.9 % Sodium Chloride Flush 3 ML SYRINGE IVFLUSH (08:24)
[2022-05-24 11:17] VITALS: BP 142/64
[2022-05-24 12:00] VITALS: BP 142/80; PULSE 94; RESP 18; TEMP 36.2; O2SAT 95
--- NOTE | 2022-05-24 12:40 | MHC.CM.PN ---
Patient has been medically cleared for dc to home today, self care. Last IMM addressed on 05/22/22.
--- NOTE | 2022-05-24 12:45 | P.DS_ITS ---
DS: Providers Provider Date of Service: 05/24/22 Date of admission: 05/21/22 21:01 Date of discharge: 05/24/22 Primary care physician: Tony Hammer MD Consults: 05/21/22 21:01 Consult to Cardiology Routine Consulting Provider: Wisam Sierra Reason for consultation: NSTEMI Has provider been notified: Yes Consult to Hematology / Oncology Routine Consulting Provider: Corey Warner Reason for consultation: pulmo nodules/mets, lytic lesion; hypercalcemia Has provider been notified: No Attending physician on discharge: Agapito Ritter Discharging clinician: Janet Dutta DS: Diagnosis Discharge Diagnosis (1) Abnormal chest CT: Status: Acute (2) Hypercalcemia: Status: Acute (3) Compression fracture of thoracic spine, non-traumatic: Status: Acute (4) Lung nodules: Status: Acute (5) Right rib fracture: Status: Acute (6) Chest pain: Status: Acute DS: Summary Hospital Course Hospital Course: From H&P on the day of admission 72-year-old male with past medical history of esophageal cancer status post radiation 1997, with recurrence in 2016, as well as adenocarcinoma and squamous cell carcinoma in the lung status post lobectomy in 2015, history of adenomatous polyp of colon, and colonoscopy from 2020 showing superficial fragment of squamous epithelium with high-grade dysplasia in the esophagus as well as fragments of sessile serrated polyp from the colon who presents the hospital with complaints of right sided chest pain radiating to the back.? Patient reports that he has had this pain about a year now, intermittent, but for the past 1-2 weeks has worsened.? Pain is intermittent worse with movement to certain areas, coughing makes it worse, and deep breath also make worse.? He has been evaluated in the past and was felt to be secondary to pleurisy, patient was given prednisone recently with some relief although no complete resolution.? Patient reports recent fatigue, weakness, and overall not feeling well.? Patient has history of intermittent fever and fever like symptoms for the past multiple years, workup in the past has not revealed any infection as a cause.? He currently has no fever, reports chills, denies any palpitations, reports no left-sided chest pain.? Denies any new cough, reports that the cough he has is very chronic for many years, no increased sputum production, he denies any abdominal pain but has nausea with no vomiting vomiting, no diarrhea but has constipation, patient denies any urinary symptoms and no lower extremity edema. he does endorse back pain, mostly in the mid back as well as mid right back. he has also been epxiencing sciatic pain to the right leg for several months. with no numbness or tingling. Pt apparently had an op CT done for the pain, and was told that he has new lung lesions concerning for recurrent malignancy, with plan for PET scan op . ?On arrival to the ED patient hemodynamically stable with no significant abnormal vitals Labs are significant for WBC 8.1, hgb 12.7, Hct 38.1, Calcium 11.4, alk-phos of 118, initial troponin of 542, repeat 878, CRP of 6.13, lipase of 230, UA negative, Head CT shows chronic microvascular ischemic changes with no CT evidence of acute intracranial abnormality Chest CT angiograms negative for PE, status post right upper lobectomy and partial right lower lobe resection,?multiple pulmonary nodules/metastasis bilaterally, mild septal thickening and ground-glass attenuation within both lungs nonspecific, lytic lesion and pathological fracture of the posterior right 10th rib adjacent to the costovertebral joint, T7 compression fracture with mild vertebral body height loss , acuity uncertain. chest pain Likely secondary to the 10th rib fracture. pathological fracture with lytic lesion concerning for metastatic disease. Pain has been controlled with PO medication and will be discharged home with oxycodone prn and lidoderm patch. His troponin was elevated and peaked around 800. He was seen in consultation by Cardiology who did not feel that this represented acute ACS. Echocardiogram was obtained and showed no evidence of new wall motion abnormality. He was started on baby aspirin and encouraged to follow up outpatient with Cardiology to pursue further ischemic workup. hypercalcemia likely secondary to ?metastatic dz ?bone mets - down to 10.3 with IVF. Will need outpatient follow up and close monitoring. abnormal chest CT patient has evidence of metastatic disease, as well as nonspecific ground-glass opacities bilaterally, patient has no cough, no fever, no leukocytosis, therefore infectious etiology is less likely, and this could represent lymphangitic spread of tumor rather than acute infection. He was seen by Oncology who will pursue outpatient bronchoscopy/biopsy and determine further plan based on results. compression fracture of the spine at T7, likely pathological. No significant pain in this area. Supportive care thrombocytopenia. will need outpatient follow up. HTN. Blood pressure was uncontrolled. He was continued on his home dose of losartan and 5 mg of Norvasc was added. He is encouraged follow-up with his PCP for close blood pressure monitoring Time Spent with Patient Time attestation: Total time spent providing and/or coordinating discharge services: Discharge coordination time: Greater than 30 minutes Quality: Safe Use of Opioids Does Pt have an Active Cancer Diagnosis on the Problem List?: No Quality: Stroke Does the patient have a stroke diagnosis?: No Physical Exam Vital Signs: Vital Signs: Last Vital Signs Temp 97.5 F 05/24/22 08:00 Pulse 81 05/24/22 08:00 Resp 18 05/24/22 08:00 BP 142/64 H 05/24/22 11:17 Pulse Ox 94 05/24/22 08:00 O2 Del Method 05/24/22 03:04 BMI result Body Mass Index 26.3 Const: General: cooperative, comfortable, no acute distress, alert and awake Nutritional Appearance: average body habitus Resp: Effort & Inspection: normal respiratory effort and able to speak in complete sentences Cardio: Rate: regular rate Heart sounds: S1 normal heart sound present and S2 normal heart sound present GI: Inspection: No distended Palpation (GI): Soft to palpation and non tender Extrem: General: Yes no pedal edema Discharge Plan Discharge Patient Disposition: Home, Self-Care Discharge Diagnosis: Elevated cardiac enzymes Abnormal chest CT Right rib fracture Compression fracture of spine Referrals: Corey Warner MD [Physician] - 1 Week Tony Hammer MD [Primary Care Provider] - 1 Week Josef Durand MD [Physician] - Discharge Medications: New amlodipine 5 mg Tablet 5 mg PO DAILY 30 Days Qty: 30 0RF Protocol: Hold for SBP< HOLD for SBP < : 90 aspirin 81 mg Tablet,Chewable 81 mg PO DAILY 30 Days Qty: 30 0RF oxycodone 5 mg Tablet 5 mg PO Q8H PRN (Reason: Pain, Moderate (Pain Scale 4-6) Qty: 20 0RF Rx Instructions: Partial Fill upon patient request. lidocaine [Lidocaine Pain Relief] 4 % Adhesive Patch,Medicated 1 patch transdermal DAILY Qty: 30 0RF Protocol: Apply to: Apply to: ribs Continued losartan 50 mg Tablet 50 mg PO DAILY atorvastatin 20 mg Tablet 20 mg PO BEDTIME sertraline 100 mg Tablet 100 mg PO DAILY omeprazole 40 mg Capsule,Delayed Release(Dr/Ec) 40 mg PO DAILY vitamin B complex Capsule 1 cap PO DAILY Justino's wort 300 mg Capsule 300 mg PO DAILY ginkgo biloba 500 mg Capsule 500 mg PO DAILY Rx Instructions: give with meal/snack Discharge Orders: Discharge Order (Routine); Ordered 05/24/22 Ordered By: Janet Dutta Activity on Discharge: As tolerated Stand Alone Forms: Patient Portal Discharge page Care Plan Goals: see below Health Concerns: Abnormal chest CT Elevated cardiac enzymes Right rib fracture Elevated calcium levels Compression fracture of spine Plan of Treatment: Call to schedule follow-up appointments with cardiology to consider further ischemic workup Call to schedule follow-up appointment with Dr. Warner to schedule further workup including possible biopsy/bronchoscopy Can use oxycodone/Tylenol/Lidoderm patches for pain control of right rib fracture Should have repeat calcium levels checked in the near future, follow-up with Dr. Warner Start taking amlodipine (Norvasc) 5mg daily and follow up to have blood pressure monitored Start taking baby aspirin, 81 mg daily Assessment: see discharge summary Discharge Date/Time: 05/24/22 15:23
== END 2022-05-24 15:23 | disposition home or self-care (01) | DRG 543 ==
LOC: HO.ED 19:28 → HO.EDOVER 21:17 → HO.IMC 05-22 18:00
PROVIDERS: Internal Medicine Cardiovascular Disease; Physician Assistant; Admitting Provider Internal Medicine; Emergency Provider Emergency Medicine; PCP Internal Medicine; Visit Provider Physician Assistant Medical
DX: M84.58XA Pathological fracture in neoplastic disease, other specified site, initial encounter for fracture (principal); C78.01 Secondary malignant neoplasm of right lung; C79.51 Secondary malignant neoplasm of bone; C78.02 Secondary malignant neoplasm of left lung; K21.9 Gastro-esophageal reflux disease without esophagitis; I10 Essential (primary) hypertension; E83.52 Hypercalcemia; M48.54XA Collapsed vertebra, not elsewhere classified, thoracic region, initial encounter for fracture; D69.6 Thrombocytopenia, unspecified; R79.89 Other specified abnormal findings of blood chemistry; M85.80 Other specified disorders of bone density and structure, unspecified site; Z20.822 Contact with and (suspected) exposure to COVID-19; Z85.118 Personal history of other malignant neoplasm of bronchus and lung; Z85.01 Personal history of malignant neoplasm of esophagus; Z92.21 Personal history of antineoplastic chemotherapy; Z92.3 Personal history of irradiation; Z88.1 Allergy status to other antibiotic agents; Z79.899 Other long term (current) drug therapy
CPT/HCPCS: 36415; 70450; 71046; 71275; 80048; 80053; 80076; 81001; 82550; 82947; 83690; 83735; 83880; 84484; 85025; 85027; 85610; 85652; 85730; 86140; 87635; 93005; 93306; 96361; 96374; 96375; 99219; 99285; J2270; J2405; Q9957; Q9967

== ENCOUNTER 2022-05-29 19:37 | Inpatient (IN) | payer MEDICARE, SELFPAY ==
--- NOTE | ~2022-05-29 | CT_ITS ---
EXAMINATION: CT ANGIOGRAM OF THE CHEST WITH CONTRAST (CT PULMONARY ANGIOGRAM FOR PE) CLINICAL INFORMATION: Elevated D-dimer, elevated trop, chest pain COMPARISON: 01/02/2021, 05/16/2022 and 05/21/2022 TECHNIQUE: Prior to contrast administration, noncontrast localization images were obtained. Subsequently, multidetector volumetric imaging was performed from the thoracic inlet to below the diaphragms following the administration of 65 mL Omnipaque 350 intravenous contrast. No contrast reaction reported. Sagittal, coronal, and MIP oblique sagittal reformatted images were obtained on the CT workstation, uploaded to PACS, and reviewed. This CT examination was performed using dose optimization techniques as appropriate, variously including the following: *Automated exposure control *Adjustment of mA and/or kV according to patient size (this includes techniques or standardized protocols for targeted exams where dose is matched to indication/reason for exam; i.e. extremities or head) *Use of iterative reconstruction technique DLP: Total exam dose-length product 270 mGy-cm FINDINGS: LUNGS AND PLEURA: There is respiratory motion of these images acquired through the chest. Again noted are postoperative changes from right upper lobe resection and right lower lung wedge resection. There is stable appearance of the tissue thickening along the suture line (image 210, series 7). The lesion that measures 2.9 cm AP in the right lower lobe, consistent with neoplasm, is significantly larger compared to 01/02/2021 but stable compared to 05/21/2022 (image 315, series 7). Also, there are multiple nodules again seen throughout both lungs, similar compared to 05/21/2022, highly suggestive of severe pulmonary metastatic disease. The interlobular septa remaining thickened. The interlobular septal thickening is mildly worsened (possible superimposed interstitial edema, or lymphangitic tumor spread) and there is interval development of small left pleural effusion. QUALITY OF STUDY/CONTRAST BOLUS: Although quality of the contrast bolus is satisfactory, there is significant respiratory motion which affects diagnostic quality of this test. CARDIOVASCULAR: Pulmonary arteries are normal in size. No emboli in the central right or left pulmonary arteries or central lobar vessels. The diagnostic assessment of peripheral vessels is severely limited by the respiratory motion. The heart size is normal. There are atherosclerotic calcifications of coronary arteries and thoracic aorta. No aortic aneurysm or dissection. No septal bowing. No findings of right heart strain. MEDIASTINUM/LOWER NECK: No mediastinal mass. The esophagus is grossly normal. The left thyroid lobe is not well seen, either atrophied or possibly surgically absent. There are no nodules identified in the right thyroid. LYMPHATICS: No pathologic sized axillary, hilar or mediastinal lymph nodes. UPPER ABDOMEN: No contrast reflux into the inferior vena cava. Adrenal glands are normal. The upper poles of the kidneys are partially included in the [id number]. As noted on 05/21/2022, there appears to be relative hypoenhancement of the partially visualized kidneys, although this might be artifactual from the arterial phase and the suboptimal visualization of the kidneys. OSSEOUS STRUCTURES: Again noted is the lytic destruction of the posterior right 10th rib and pathologic fracture in the region of the costotransverse junction. There is progressive loss of height of the fractured T7 vertebral body and mild retropulsion of its posterior wall. There is likely a new, minimal fracture at the superior endplate of the T10 vertebral body. CT/CT angio chest PE protocol IMPRESSION: * No evidence of a central pulmonary embolism. However, the evaluation of the peripheral vessels is severely limited by the respiratory motion. For this reason, if there is a high suspicion for thromboembolic disease, consider correlation with lower extremity venous ultrasound. * Overall, the pulmonary abnormalities are similar to those seen on 05/21/2022, although there is some worsening thickening of interlobular septa in both lungs which could represent a feature of lymphangitic tumor spread or superimposed pulmonary edema. The small left pleural effusion is new compared to 05/21/2022. * Again noted is a displaced pathologic fracture of the right posterior 10th rib at the costotransverse junction. * The height loss of the fractured T7 vertebral body has worsened, and there appears to be a new minimal fracture involving T10 superior endplate..
--- NOTE | ~2022-05-29 | XR_ITS ---
EXAMINATION: XR CHEST CLINICAL INFORMATION: Shortness of breath and hypoxia. COMPARISON: Chest x-ray 05/21/2022 CT chest 05/21/2022 TECHNIQUE: Frontal portable view of the chest was obtained. 8:19 PM FINDINGS: Chronic increased reticular markings throughout the lungs similar prior study. Surgical suture line in the right midlung. No acute airspace disease. No pleural effusion or pneumothorax. Heart size is normal. Cardiac mediastinal contours are normal. XR/XR chest 1V IMPRESSION: Chronic increased interstitial lung markings. Postsurgical changes of right lung. No acute airspace disease.
[2022-05-29 19:51] VITALS: BP 146/76; BP 156/98; PULSE 110; RESP 14; TEMP 36.9; O2SAT 94; O2SAT 97; BMI 23.6
--- NOTE | 2022-05-29 20:03 | ECG_ITS ---
Test Reason : CHEST PAIN Blood Pressure : / mmHG Vent. Rate : 099 BPM Atrial Rate : 099 BPM P-R Int : 110 ms QRS Dur : 082 ms QT Int : 328 ms P-R-T Axes : 026 -09 028 degrees QTc Int : 420 ms Sinus rhythm with short PA Otherwise normal ECG When compared with ECG of 21-MAY-2022 17:04, No significant change was found Referred By: Suellen Elizabeth Electronically Signed By:ANDRES ANG
--- NOTE | 2022-05-29 20:22 | ED_ITS ---
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 According to the daughter patient has been declining and deconditioning, less coherent with intermittent confusion period, most of the history was obtained from old records and his daughter Claudia was also healthcare proxy, family and the patient in the process of discussing treatment and the potential for hospice service. Patient was brought to the hospital tonight because increased shortness of godfrey th and and pain on the left side of the chest started today. Initially patient found by EMS to be hypoxic at 88% on room air patient was placed on 2 L of nasal cannula of oxygen patient is 94% Related Data Home Medications Medication Instructions Recorded Confirmed atorvastatin 20 mg tablet 20 mg PO BEDTIME 11/07/20 05/29/22 losartan 50 mg tablet 50 mg PO DAILY 11/07/20 05/29/22 omeprazole 40 mg capsule,delayed 40 mg PO DAILY 11/07/20 05/29/22 release sertraline 100 mg tablet 100 mg PO DAILY 11/07/20 05/29/22 vitamin B complex 1 cap PO DAILY 05/21/22 05/29/22 lidocaine 4 % topical patch 1 patch transdermal DAILY PRN Pain 05/29/22 05/29/22 (Lidocaine Pain Relief) morphine 15 mg tablet,extended 1 tab PO Q12H 05/29/22 05/29/22 release Previous Rx's Medication Instructions Recorded amlodipine 5 mg tablet 5 mg PO DAILY 30 days #30 tabs 05/24/22 oxycodone 5 mg tablet 5 mg PO Q8H PRN Pain, Moderate 05/24/22 (Pain Scale 4-6 #20 tabs Allergies Allergy/AdvReac Type Severity Reaction Status Date / Time erythromycin base Allergy Mild HIVES Verified 11/12/20 08:00 [Erythromycin Base] levofloxacin Allergy Unknown Unknown Verified 11/12/20 08:00 Review of Systems Review of Systems: All other systems are reviewed and are negative Constitutional: Reports as per HPI and Reports no additional constitutional complaints Eyes: Reports as per HPI and Reports no additional eye complaints Reports system reviewed and no additional complaints, except as documented Cardiovascular: Reports as per HPI and Reports no additional cardiovascular complaints Respiratory: Reports as per HPI and Reports no additional respiratory complaints Gastrointestinal: Reports as per HPI and Reports no additional gastrointestinal complaints Genitourinary: Reports no additional female genitourinary complaints Musculoskeletal: Reports no additional musculoskeletal complaints Skin/Breast: Reports system reviewed and no additional complaints, except as docu Psychiatric: Reports no additional psychiatric complaints Endocrine: Reports no additional endocrine complaints Hematologic/Lymphatic: Reports no additional hematologic/lymphatic complaints Allergic/Immunologic: Reports no additional allergic/immunologic complaints Reports system reviewed and no additional complaints, except as documented and Reports Abnormal speech present [facility] Past Medical History Medical History Abnormal colonoscopy Arthritis Depression Elevated cholesterol GERD (gastroesophageal reflux disease) History of esophageal cancer HTN (hypertension) Hx of cancer of lung Surgical History H/O colonoscopy History of esophagogastroduodenoscopy (EGD) History of surgery on left wrist Hx of tonsillectomy Family History Family History Other No family history of coronary artery disease Social History Social History Household Members: Spouse Housing: House Are you a primary pet care associate to a significant other at home: No Do you presently have visiting nurse or other home services: No Alcohol intake: never Patient Tobacco Use Status: Never used Tobacco Advance Directives: No Advance Directives Information Provided: No Advance Directives Date on File: 05/22/22 service: No Current occupational status: retired Physical Exam ED Vital Signs: Vital Signs - 24 hr 05/29/22 19:51 05/29/22 21:41 Temperature 98.5 F Pulse Rate 110 H 114 H Respiratory Rate 14 16 Blood Pressure 146/76 H 101/77 Pulse Oximetry 94 98 Oxygen Delivery Method Nasal Cannula Nasal Cannula Oxygen Flow Rate 3 BMI result Body Mass Index 23.6 Vital signs have been reviewed as appeared to be correct. Blood pressure normal. Heart rate normal. Respiration rate normal. Temperature normal. Oxygen saturation normal. Appearance: Cachectic, Alert. Oriented X3. No acute distress. Incoherent and confused at times Head: Normal external exam. Normocephalic. Atraumatic. No Hernandez signs noted. No raccoon eyes noted Eyes: PERRLA. EOMI. Conjunctiva and sclera normal. Eyelids normal. ENT: TM's Normal. Pharynx normal. Uvula midline. Moist mucous membranes. No trismus noted. No drooling noted. No muffled voice noted. Neck: Normal inspection. Neck supple. FROM. No adenopathy. Thyroid Normal. No meningeal signs. No neck mass noted. CVS: Normal heart rate and rhythm. Heart sound normal. No murmurs noted. Pulses normal throughout. Respiratory: No respiratory distress. Painless inspiration. Breath sounds normal. Expiratory wheezing with prolonged expiration.. Chest nontender. No accessory muscle usage noted or decreased air movement noted. Abdomen: Soft and nontender. Bowel sounds normal in all 4 quadrants. No distention noted. No organomegaly noted. No visible injury noted. Back: No CVA tenderness. Full range of motion noted. Skin: Skin warm and dry. Normal skin color. Normal skin turgor. No marian hes/lesions/lacerations noted. Extremities: No lower extremity edema. Extremities exhibit normal range of motion. Extremities nontender. Neuro: Oriented X 3. Cranial nerve exam: II-XII are grossly intact No motor deficit. No sensory deficit. Reflexes normal. Course Course Course Narrative: A 72-year-old pleasant male with unfortunate past medical history of malignancy, had a recent admission for similar presentation and found to have non STEMI, rib fracture, compression fracture of the vertebrae during his last hospitalization patient had Cardiology consultation who recommended to have outpatient workup with low suspicion for ACS at that time. Patient return with his daughter (Claudia who also healthcare proxy) for generalized weakness and dehydration with epigastric pain, patient also been having time of confusion at home. After a lengthy discussion with Claudia they would like to make patient under hospice service. Patient had elevated troponin similar to last admission with no diagnostic ischemic change on the EKG the case discussed with Dr. Sierra recommended no heparin at this point. Patient with acute pancreatitis will start the patient on on pain medication as per hospitalist. Help family to enroll into hospice service will consult social insurance adviser tomorrow on the floor. Medical Decision Making Medical Records Medical records reviewed: Yes I reviewed the patient's medical records. Lab Data Lab results reviewed: Yes I reviewed the patient's lab results. Result diagrams: 05/29/22 20:09 05/29/22 21:13 Labs: Lab Results 05/29/22 05/29/22 05/29/22 Range/Units 20:09 20:09 20:09 WBC 13.2 H (4.8-10.8) X10*3/uL RBC 4.72 (4.60-5.80) X10*6/uL Hgb 13.3 L (14.0-18.0) g/dl Hct 39.2 L (42.0-52.0) % MCV 83.1 (80.0-98.0) fL MCH 28.2 (27.0-33.0) pg MCHC 33.9 (31.0-36.0) g/dl RDW 14.0 (11.0-16.0) % Plt Count 127 L (160-400) X10*3/uL MPV 9.4 (9.4-12.4) fL Immature Gran % (Auto) Cancelled Neut % (Auto) Cancelled Lymph % (Auto) Cancelled [place] % (Auto) Cancelled Eos % (Auto) Cancelled Baso % (Auto) Cancelled Lymph # (Auto) Cancelled [place] # (Auto) Cancelled Eos # (Auto) Cancelled Baso # (Auto) Cancelled Abs Immat Gran (auto) Cancelled Absolute Neuts (auto) Cancelled Absolute Nucleated RBC 0.000 (0.0-0.012) X10*3/uL Nucleated RBC % (auto) 0.0 (0.0-0.2) /100WBC Neutrophils % (Manual) 84 H (45-73) % Band Neutrophils % 4 (3-5) % Lymphocytes % (Manual) 5 L (20-40) % Monocytes % (Manual) 3 (2-11) % Eosinophils % (Manual) 3 (0-4) % Basophils % (Manual) 1 (0-2) % Abs Neuts (Manual) 11.6 H (2.0-8.3) X10*3/uL Lymphocytes # (Manual) 0.7 L (1.2-4.9) X10*3/uL Monocytes # (Manual) 0.4 (0.1-1.2) X10*3/uL Eosinophils # (Manual) 0.4 (0.0-0.4) X10*3/uL Basophils # (Manual) 0.1 (0.0-0.2) X10*3/uL Platelet Estimate SLIGHTLY DECREASED (NORMAL) Plt Morphology Comment NORMAL RBC Morphology NOTED Polychromasia 1+ (0-2) /OIF Basophilic Stippling 1+ (0-2) /OIF D-Dimer High Sensitivty 24794 NG/ML Sodium (135-145) mmol/L Potassium (3.3-5.1) mmol/L Chloride (96-108) mmol/L Carbon Dioxide (22-29) mmol/L Anion Gap (12-20) BUN (9-16) mg/dL Creatinine (0.5-1.4) mg/dL Estim Creat Clear Calc Estimated GFR Random Glucose (60-115) mg/dL Lactic Acid (0.5-2.0) mmol/L Calcium (8.4-10.2) mg/dL Total Bilirubin (0.0-1.0) mg/dL Direct Bilirubin (0.0-0.5) mg/dL AST (5-37) U/L ALT (0-40) U/L Alkaline Phosphatase (39-117) U/L Troponin I High Sens 1256.6 H* D (<3.5-35.0) ng/L B-Natriuretic Peptide 26 (<100) pg/mL Total Protein (6.5-8.0) g/dL Albumin (3.5-5.0) g/dL Lipase (8-78) U/L Urine Color Urine Appearance Urine pH (5.0-9.0) Ur Specific [place] (1.005-1.025) Urine Protein (Neg-Trace) mg/dL Urine Glucose (UA) (Negative) mg/dL Urine Ketones (Negative) mg/dL Urine Blood (Negative) Urine Nitrite (Negative) Ur Leukocyte Esterase (Negative) Urine RBC (0-2) /HPF Urine WBC (0-5) /HPF Ur Squamous Epith Cells (0-2) /HPF Urine Bacteria (None Seen) Hyaline Casts (0-2) /LPF Influenza Type A (PCR) (Negative) Influenza Type B (PCR) (Negative) RSV RNA Qual (PCR) (Negative) SARS-CoV-2 RNA (RT-PCR) (Negative) 05/29/22 05/29/22 05/29/22 Range/Units 20:09 20:09 20:09 WBC (4.8-10.8) X10*3/uL RBC (4.60-5.80) X10*6/uL Hgb (14.0-18.0) g/dl Hct (42.0-52.0) % MCV (80.0-98.0) fL MCH (27.0-33.0) pg MCHC (31.0-36.0) g/dl RDW (11.0-16.0) % Plt Count (160-400) X10*3/uL MPV (9.4-12.4) fL Immature Gran % (Auto) Neut % (Auto) Lymph % (Auto) [place] % (Auto) Eos % (Auto) Baso % (Auto) Lymph # (Auto) [place] # (Auto) Eos # (Auto) Baso # (Auto) Abs Immat Gran (auto) Absolute Neuts (auto) Absolute Nucleated RBC (0.0-0.012) X10*3/uL Nucleated RBC % (auto) (0.0-0.2) /100WBC Neutrophils % (Manual) (45-73) % Band Neutrophils % (3-5) % Lymphocytes % (Manual) (20-40) % Monocytes % (Manual) (2-11) % Eosinophils % (Manual) (0-4) % Basophils % (Manual) (0-2) % Abs Neuts (Manual) (2.0-8.3) X10*3/uL Lymphocytes # (Manual) (1.2-4.9) X10*3/uL Monocytes # (Manual) (0.1-1.2) X10*3/uL Eosinophils # (Manual) (0.0-0.4) X10*3/uL Basophils # (Manual) (0.0-0.2) X10*3/uL Platelet Estimate (NORMAL) Plt Morphology Comment RBC Morphology Polychromasia /OIF Basophilic Stippling /OIF D-Dimer High Sensitivty NG/ML Sodium (135-145) mmol/L Potassium (3.3-5.1) mmol/L Chloride (96-108) mmol/L Carbon Dioxide (22-29) mmol/L Anion Gap (12-20) BUN (9-16) mg/dL Creatinine (0.5-1.4) mg/dL Estim Creat Clear Calc Estimated GFR Random Glucose (60-115) mg/dL Lactic Acid 1.4 (0.5-2.0) mmol/L Calcium (8.4-10.2) mg/dL Total Bilirubin (0.0-1.0) mg/dL Direct Bilirubin (0.0-0.5) mg/dL AST (5-37) U/L ALT (0-40) U/L Alkaline Phosphatase (39-117) U/L Troponin I High Sens (<3.5-35.0) ng/L B-Natriuretic Peptide Cancelled (<100) pg/mL Total Protein (6.5-8.0) g/dL Albumin (3.5-5.0) g/dL Lipase (8-78) U/L Urine Color Urine Appearance Urine pH (5.0-9.0) Ur Specific [place] (1.005-1.025) Urine Protein (Neg-Trace) mg/dL Urine Glucose (UA) (Negative) mg/dL Urine Ketones (Negative) mg/dL Urine Blood (Negative) Urine Nitrite (Negative) Ur Leukocyte Esterase (Negative) Urine RBC (0-2) /HPF Urine WBC (0-5) /HPF Ur Squamous Epith Cells (0-2) /HPF Urine Bacteria (None Seen) Hyaline Casts (0-2) /LPF Influenza Type A (PCR) NEGATIVE (Negative) Influenza Type B (PCR) NEGATIVE (Negative) RSV RNA Qual (PCR) NEGATIVE (Negative) SARS-CoV-2 RNA (RT-PCR) NEGATIVE (Negative) 05/29/22 05/29/22 Range/Units 21:13 21:13 WBC (4.8-10.8) X10*3/uL RBC (4.60-5.80) X10*6/uL Hgb (14.0-18.0) g/dl Hct (42.0-52.0) % MCV (80.0-98.0) fL MCH (27.0-33.0) pg MCHC (31.0-36.0) g/dl RDW (11.0-16.0) % Plt Count (160-400) X10*3/uL MPV (9.4-12.4) fL Immature Gran % (Auto) Neut % (Auto) Lymph % (Auto) [place] % (Auto) Eos % (Auto) Baso % (Auto) Lymph # (Auto) [place] # (Auto) Eos # (Auto) Baso # (Auto) Abs Immat Gran (auto) Absolute Neuts (auto) Absolute Nucleated RBC (0.0-0.012) X10*3/uL Nucleated RBC % (auto) (0.0-0.2) /100WBC Neutrophils % (Manual) (45-73) % Band Neutrophils % (3-5) % Lymphocytes % (Manual) (20-40) % Monocytes % (Manual) (2-11) % Eosinophils % (Manual) (0-4) % Basophils % (Manual) (0-2) % Abs Neuts (Manual) (2.0-8.3) X10*3/uL Lymphocytes # (Manual) (1.2-4.9) X10*3/uL Monocytes # (Manual) (0.1-1.2) X10*3/uL Eosinophils # (Manual) (0.0-0.4) X10*3/uL Basophils # (Manual) (0.0-0.2) X10*3/uL Platelet Estimate (NORMAL) Plt Morphology Comment RBC Morphology Polychromasia /OIF Basophilic Stippling /OIF D-Dimer High Sensitivty NG/ML Sodium 141 (135-145) mmol/L Potassium 4.0 (3.3-5.1) mmol/L Chloride 98 (96-108) mmol/L Carbon Dioxide 28 (22-29) mmol/L Anion Gap 19 (12-20) BUN 42 H D (9-16) mg/dL Creatinine 1.07 (0.5-1.4) mg/dL Estim Creat Clear Calc 50.7 Estimated GFR > 60 Random Glucose 109 (60-115) mg/dL Lactic Acid (0.5-2.0) mmol/L Calcium 11.8 H D (8.4-10.2) mg/dL Total Bilirubin 0.6 (0.0-1.0) mg/dL Direct Bilirubin 0.3 (0.0-0.5) mg/dL AST 30 D (5-37) U/L ALT 28 (0-40) U/L Alkaline Phosphatase 155 H D (39-117) U/L Troponin I High Sens (<3.5-35.0) ng/L B-Natriuretic Peptide (<100) pg/mL Total Protein 7.0 (6.5-8.0) g/dL Albumin 4.0 (3.5-5.0) g/dL Lipase 829 H (8-78) U/L Urine Color Yellow Urine Appearance Clear Urine pH 5.5 (5.0-9.0) Ur Specific [place] 1.020 (1.005-1.025) Urine Protein 100 (2+) H (Neg-Trace) mg/dL Urine Glucose (UA) Negative (Negative) mg/dL Urine Ketones Negative (Negative) mg/dL Urine Blood Large (3+) H (Negative) Urine Nitrite Negative (Negative) Ur Leukocyte Esterase Negative (Negative) Urine RBC >20 H (0-2) /HPF Urine WBC 0-5 (0-5) /HPF Ur Squamous Epith Cells 0-2 (0-2) /HPF Urine Bacteria None Seen (None Seen) Hyaline Casts 3-5 (0-2) /LPF Influenza Type A (PCR) (Negative) Influenza Type B (PCR) (Negative) RSV RNA Qual (PCR) (Negative) SARS-CoV-2 RNA (RT-PCR) (Negative) Imaging Data Chest x-ray: Attestation: I personally reviewed and interpreted this imaging study as follows: Radiologist's impression: Chronic increased interstitial lung markings. Postsurgical changes of right lung. No acute airspace disease. ? ECG Data Attestation: I personally reviewed and interpreted this ECG as follows: Interpretation: Normal sinus rhythm at 99 beats per minutes, left axis deviation, short LA interval otherwise unremarkable intervals, no ST-T changes, no change from previous EKG. Critical Care Time Critical Care Time Critical Care Time: Yes Total Critical Care Time: 60 Attestation: I spent 60 minutes providing critical care service to the patient, this including time spent at the bedside to evaluate the patient, reassess the patient, monitoring vital signs, review labs, and radiographic studies, counseling the patient/family, discussing the case with consultants, disposition the patient. Discharge Plan Discharge Clinical Impression: Elevated troponin, Chest pain, Acute pancreatitis, Lung malignancy Patient Disposition: Admitted As Inpatient Prescriptions: No Action losartan 50 mg Tablet 50 mg PO DAILY atorvastatin 20 mg Tablet 20 mg PO BEDTIME sertraline 100 mg Tablet 100 mg PO DAILY omeprazole 40 mg Capsule,Delayed Release(Dr/Ec) 40 mg PO DAILY morphine 15 mg tablet extended release 1 tab PO Q12H lidocaine [Lidocaine Pain Relief] 4 % adhesive patch,medicated 1 patch transdermal DAILY PRN (Reason: Pain) Protocol: Apply to: Apply to: ribs vitamin B complex Capsule 1 cap PO DAILY amlodipine 5 mg Tablet 5 mg PO DAILY 30 Days Qty: 30 0RF Protocol: Hold for SBP< HOLD for SBP < : 90 oxycodone 5 mg Tablet 5 mg PO Q8H PRN (Reason: Pain, Moderate (Pain Scale 4-6) Qty: 20 0RF Rx Instructions: Partial Fill upon patient request.
[2022-05-29 20:29] LABS: PLT CLUMP 1
[2022-05-29] MEDS: 0.9 % Sodium Chloride 1,000 ML 999 ML IV (20:29)
[2022-05-29 20:34] LABS: Hematocrit 39.2 % (42.0-52.0); Hemoglobin 13.3 g/dl (14.0-18.0); Mean Corpuscular HGB Conc 33.9 g/dl (31.0-36.0); Mean Corpuscular Hemoglobin 28.2 pg (27.0-33.0); Mean Corpuscular Volume 83.1 fL (80.0-98.0); Mean Platelet Volume 9.4 fL (9.4-12.4); Red Blood Count 4.72 X10*6/uL (4.60-5.80)
[2022-05-29 20:35] LABS: White Blood Count 13.2 X10*3/uL (4.8-10.8)
[2022-05-29 20:43] LABS: Lactic Acid 1.4 mmol/L (0.5-2.0)
[2022-05-29 21:01] LABS: B Type Natriuretic Peptide 26 pg/mL (<100); Troponin-I High Sensitivity 1256.6 ng/L (<3.5-35.0)
--- NOTE | 2022-05-29 21:01 | PHA.MEDREC ---
Pharmacy Consult ? Medication Reconciliation Pharmacy has completed the medication reconciliation. Spoke with patient's daughter Claudia. She reported all mediations. Report that aspirin was stopped due to patient needing a biopsy. Kassandra Wong, PharmD
[2022-05-29 21:09] LABS: Influenza A PCR NEGATIVE (Negative); Influenza B PCR NEGATIVE (Negative); Resp Syncy Virus RNA Qual PCR NEGATIVE (Negative); SARS COV2 PCR INHOUSE NEGATIVE (Negative)
[2022-05-29] MEDS: Albuterol/Iprat 2.5/0.5MG 3 ML AMPUL.NEB INHALE (21:10)
[2022-05-29] MEDS: Albuterol Sulfate (0.083%) 2.5 MG/3 ML VIAL.NEB INHALE (21:10)
[2022-05-29 21:26] LABS: D Dimer High Sensitivity 20510 NG/ML
[2022-05-29 21:29] LABS: Appearance Urine Clear; Color Urine Yellow; Glucose Urine UA Negative (Negative); Leukocyte Esterase Urine Negative (Negative); Nitrite Urine Negative (Negative); PH 5.5 (5.0-9.0); UMIC TRIGGER UACC YES; Urine Blood Large (3+) (Negative); Urine Ketones Negative (Negative); Urine Protein 100 (2+) mg/dL (Neg-Trace)
[2022-05-29 21:34] LABS: Bacteria Urine None Seen (None Seen); RBC Urine >20 /HPF (0-2); Squamous Epithelial Cell Urine 0-2 /HPF (0-2); WBC Urine 0-5 /HPF (0-5)
[2022-05-29 21:35] LABS: Band Neutrophils Percent 4 % (3-5); Basophils Abs Manual 0.1 X10*3/uL (0.0-0.2); Basophils Percent Manual 1 % (0-2); Eosinophils Absolute Manual 0.4 X10*3/uL (0.0-0.4); Eosinophils Percent Manual 3 % (0-4); Lymphocytes Absolute Manual 0.7 X10*3/uL (1.2-4.9); Lymphocytes Percent Manual 5 % (20-40); Monocytes Absolute Manual 0.4 X10*3/uL (0.1-1.2); Monocytes Percent Manual 3 % (2-11); Neutrophils Absolute Manual 11.6 X10*3/uL (2.0-8.3); Neutrophils Percent Manual 84 % (45-73)
[2022-05-29 21:41] VITALS: BP 101/77; PULSE 114; RESP 16; O2SAT 98
[2022-05-29] MEDS: Magnesium Sulfate/H2O 2 GM/50 ML PIGGYBACK IV (21:41)
[2022-05-29] MEDS: methylPREDNISolone Sod Succ 125 MG/2 ML VIAL IVPUSH (21:41)
[2022-05-29 21:43] LABS: RBC Morphology NOTED
[2022-05-29 21:44] LABS: Basophilic Stippling 1+ (0-2) /OIF; Platelet Estimate SLIGHTLY DECREASED (NORMAL); Platelet Morphology Comment NORMAL; Polychromasia 1+ (0-2) /OIF
[2022-05-29 21:44] LABS: Alanine Aminotransferase 28 U/L (0-40); Alkaline Phosphatase 155 U/L (39-117); Anion Gap 19 (12-20); Aspartate Amino Transferase 30 U/L (5-37); Bilirubin Direct 0.3 mg/dL (0.0-0.5); Bilirubin Total 0.6 mg/dL (0.0-1.0); Blood Urea Nitrogen 42 mg/dL (9-16); Calcium 11.8 mg/dL (8.4-10.2); Carbon Dioxide 28 mmol/L (22-29); Chloride 98 mmol/L (96-108); Creatinine Clr Calc Pharmacy 50.7; Estimated Glomerular Filt Rate > 60; Glucose Random 109 mg/dL (60-115); Lipase 829 U/L (8-78); Sodium 141 mmol/L (135-145)
[2022-05-29 21:50] LABS: Platelet Count 127 X10*3/uL (160-400)
[2022-05-29 23:18] VITALS: BP 117/74; PULSE 96; RESP 16; O2SAT 97
--- NOTE | 2022-05-29 23:22 | PM.IMHP ---
History of Present Illness Date of Service: 05/29/22 Chief Complaint: chest pain 72-year-old male with a past medical history of hypertension, hyperlipidemia, anxiety, depression, history of esophageal cancer status post radiation 1998/ recurrence in: 16 /adenomatous polyp of the colon; recent admission to the hospital for chest pain/ elevated troponins; presented to the hospital today with a chief complaint of chest pain. Per family patient has been taking his home pain medications. Has right-sided rib pain secondary to the fracture but for the past 1 day he has been complaining of left-sided chest pain. Worsens with deep inspiration. Also has been gradually declining over the past 2 days, decreased oral intake, reports difficulty swallowing. Denies any cough or sputum production. Denies any nausea vomiting. For family patient has been gradually declining over the past 2 days. And have been speaking to Oncology for hospice considerations. Was also planned for lung biopsy hence aspirin was stopped. Denies any falls or trauma. Review of all other systems is negative except mentioned above ER course: Per ER team patient noted to elevated troponin, Cardiology was notified-did not recommend heparin drip. Admitted to the hospital for further management [facility] Medical History Abnormal colonoscopy Arthritis Depression Elevated cholesterol GERD (gastroesophageal reflux disease) History of esophageal cancer HTN (hypertension) Hx of cancer of lung Family History Other No family history of coronary artery disease Surgical History H/O colonoscopy History of esophagogastroduodenoscopy (EGD) History of surgery on left wrist Hx of tonsillectomy Social History Household Members: None Housing: Apartment Are you a primary healthcare account manager to a significant other at home: No Do you presently have visiting nurse or other home services: No Alcohol intake: never Patient Tobacco Use Status: Never used Tobacco Advance Directives Date on File: 05/22/22 service: No Current occupational status: retired Meds Allergies Allergy/AdvReac Type Severity Reaction Status Date / Time erythromycin base Allergy Mild HIVES Verified 11/12/20 08:00 [Erythromycin Base] levofloxacin Allergy Unknown Unknown Verified 11/12/20 08:00 Active Medications: Current Medications Pharmacy Consult (Consult Rx Perform Med Rec) 1 each MISCELLANE ONCE PRN PRN Reason: Consult order Home Medications Medication Instructions Recorded Confirmed Last Taken Type atorvastatin 20 mg tablet 20 mg PO BEDTIME 11/07/20 05/29/22 Unknown History losartan 50 mg tablet 50 mg PO DAILY 11/07/20 05/29/22 Unknown History omeprazole 40 mg capsule,delayed 40 mg PO DAILY 11/07/20 05/29/22 Unknown History release sertraline 100 mg tablet 100 mg PO DAILY 11/07/20 05/29/22 11/12/20 07:30 History vitamin B complex 1 cap PO DAILY 05/21/22 05/29/22 Unknown History lidocaine 4 % topical patch 1 patch transdermal DAILY PRN Pain 05/29/22 05/29/22 Unknown History (Lidocaine Pain Relief) morphine 15 mg tablet,extended 1 tab PO Q12H 05/29/22 05/29/22 05/29/22 07:00 History release Physical Exam Vital Signs and Narrative: Vital Signs: Last Vital Signs Temp 98.5 F 05/29/22 19:51 Pulse 96 05/29/22 23:18 Resp 16 05/29/22 23:18 BP 117/74 05/29/22 23:18 Pulse Ox 97 05/29/22 23:18 O2 Del Method 05/29/22 23:18 O2 Flow Rate 2 05/29/22 23:18 Oxygen Flow Rate 2 05/29/22 19:51 BMI result Body Mass Index 23.6 Gen: Appears be in no acute distress. On supplemental oxygen HEENT: NCAT, dry mucosa. Pulmonary: Vesicular breath sounds, fair air entry CVS: Normal S1-S2 Abdomen: BS+, Soft, Nontender Extremities: Warm well perfused Neuro: Alert and awake. Results Labs CBC and Chem 7: 05/30/22 06:57 05/31/22 05:37 Labs: Laboratory Results - last 24 hr 05/29/22 05/29/22 05/29/22 20:09 20:09 20:09 MCV 83.1 MCH 28.2 MCHC 33.9 RDW 14.0 Plt Count 127 L MPV 9.4 Immature Gran % (Auto) Cancelled Neut % (Auto) Cancelled Lymph % (Auto) Cancelled [place] % (Auto) Cancelled Eos % (Auto) Cancelled Baso % (Auto) Cancelled Lymph # (Auto) Cancelled [place] # (Auto) Cancelled Eos # (Auto) Cancelled Baso # (Auto) Cancelled Abs Immat Gran (auto) Cancelled Absolute Neuts (auto) Cancelled Absolute Nucleated RBC 0.000 Nucleated RBC % (auto) 0.0 Neutrophils % (Manual) 84 H Band Neutrophils % 4 Lymphocytes % (Manual) 5 L Monocytes % (Manual) 3 Eosinophils % (Manual) 3 Basophils % (Manual) 1 Abs Neuts (Manual) 11.6 H Lymphocytes # (Manual) 0.7 L Monocytes # (Manual) 0.4 Eosinophils # (Manual) 0.4 Basophils # (Manual) 0.1 Platelet Estimate SLIGHTLY DECREASED Plt Morphology Comment NORMAL RBC Morphology NOTED Polychromasia 1+ (0-2) Basophilic Stippling 1+ (0-2) D-Dimer High Sensitivty 78022 Anion Gap Estim Creat Clear Calc Estimated GFR Random Glucose Lactic Acid Calcium Total Bilirubin Direct Bilirubin AST ALT Alkaline Phosphatase B-Natriuretic Peptide 26 Total Protein Albumin Lipase Urine Color Urine Appearance Urine pH Ur Specific [place] Urine Protein Urine Glucose (UA) Urine Ketones Urine Blood Urine Nitrite Ur Leukocyte Esterase Urine RBC Urine WBC Ur Squamous Epith Cells Urine Bacteria Hyaline Casts Influenza Type A (PCR) Influenza Type B (PCR) RSV RNA Qual (PCR) SARS-CoV-2 RNA (RT-PCR) 05/29/22 05/29/22 05/29/22 20:09 20:09 20:09 MCV MCH MCHC RDW Plt Count MPV Immature Gran % (Auto) Neut % (Auto) Lymph % (Auto) [place] % (Auto) Eos % (Auto) Baso % (Auto) Lymph # (Auto) [place] # (Auto) Eos # (Auto) Baso # (Auto) Abs Immat Gran (auto) Absolute Neuts (auto) Absolute Nucleated RBC Nucleated RBC % (auto) Neutrophils % (Manual) Band Neutrophils % Lymphocytes % (Manual) Monocytes % (Manual) Eosinophils % (Manual) Basophils % (Manual) Abs Neuts (Manual) Lymphocytes # (Manual) Monocytes # (Manual) Eosinophils # (Manual) Basophils # (Manual) Platelet Estimate Plt Morphology Comment RBC Morphology Polychromasia Basophilic Stippling D-Dimer High Sensitivty Anion Gap Estim Creat Clear Calc Estimated GFR Random Glucose Lactic Acid 1.4 Calcium Total Bilirubin Direct Bilirubin AST ALT Alkaline Phosphatase B-Natriuretic Peptide Cancelled Total Protein Albumin Lipase Urine Color Urine Appearance Urine pH Ur Specific [place] Urine Protein Urine Glucose (UA) Urine Ketones Urine Blood Urine Nitrite Ur Leukocyte Esterase Urine RBC Urine WBC Ur Squamous Epith Cells Urine Bacteria Hyaline Casts Influenza Type A (PCR) NEGATIVE Influenza Type B (PCR) NEGATIVE RSV RNA Qual (PCR) NEGATIVE SARS-CoV-2 RNA (RT-PCR) NEGATIVE 05/29/22 05/29/22 21:13 21:13 MCV MCH MCHC RDW Plt Count MPV Immature Gran % (Auto) Neut % (Auto) Lymph % (Auto) [place] % (Auto) Eos % (Auto) Baso % (Auto) Lymph # (Auto) [place] # (Auto) Eos # (Auto) Baso # (Auto) Abs Immat Gran (auto) Absolute Neuts (auto) Absolute Nucleated RBC Nucleated RBC % (auto) Neutrophils % (Manual) Band Neutrophils % Lymphocytes % (Manual) Monocytes % (Manual) Eosinophils % (Manual) Basophils % (Manual) Abs Neuts (Manual) Lymphocytes # (Manual) Monocytes # (Manual) Eosinophils # (Manual) Basophils # (Manual) Platelet Estimate Plt Morphology Comment RBC Morphology Polychromasia Basophilic Stippling D-Dimer High Sensitivty Anion Gap 19 Estim Creat Clear Calc 50.7 Estimated GFR > 60 Random Glucose 109 Lactic Acid Calcium 11.8 H D Total Bilirubin 0.6 Direct Bilirubin 0.3 AST 30 D ALT 28 Alkaline Phosphatase 155 H D B-Natriuretic Peptide Total Protein 7.0 Albumin 4.0 Lipase 829 H Urine Color Yellow Urine Appearance Clear Urine pH 5.5 Ur Specific [place] 1.020 Urine Protein 100 (2+) H Urine Glucose (UA) Negative Urine Ketones Negative Urine Blood Large (3+) H Urine Nitrite Negative Ur Leukocyte Esterase Negative Urine RBC >20 H Urine WBC 0-5 Ur Squamous Epith Cells 0-2 Urine Bacteria None Seen Hyaline Casts 3-5 Influenza Type A (PCR) Influenza Type B (PCR) RSV RNA Qual (PCR) SARS-CoV-2 RNA (RT-PCR) Imaging Radiologist's Impressions: Impressions Chest X-Ray 05/29/22 20:29 IMPRESSION: Chronic increased interstitial lung markings. Postsurgical changes of right lung. No acute airspace disease. Assessment and Plan (1) Hospice care patient: Status: Acute Plan 72-year-old male with a past medical history of hypertension, hyperlipidemia, anxiety, depression, history of esophageal cancer status post radiation 1997/ recurrence in: 16 /adenomatous polyp of the colon; recent admission to the hospital for chest pain/ elevated troponins; presented to the hospital today with a chief complaint of chest pain. Chest pain: Patient has right-sided chest pain secondary to the rib fracture as well as left-sided chest pain which worsens with deep inspiration. Troponin elevated to 1250 - repeat pending Patient was recently admitted to the hospital for elevated troponin. Discharged on aspirin. Aspirin was stopped as plan for lung biopsy. Currently cardiology was notified -did not recommend heparin drip at the moment. CT chest on 05/21/2022 showed no evidence of pulmonary embolism Patient/ family does not want any aggressive intervention. Pain control History of esophageal cancer: Status post radiation /recurrence in 2015. 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 Scheduled for PET scan as outpatient. Family also concerning hospice -would like to discuss with Case Management in the morning. Dysphagia: Patient reported decreased oral intake over the past 2 days. NPO for now. Speech and swallow eval. History of hypertension / hyperlipidemia: Continue home alert open/statin History of depression: Continue home sertraline DVT prophylaxis: Subcu heparin Code status: DNR/ DNI. Confirmed with the family as well. Quality Stroke Does the patient have a stroke diagnosis?: No VTE Prior VTE?: No VTE Risk Level:: Medical - moderate - high VTE Device Contraindication: Treatment Not Indicated VTE Drug Contraindication: N/A - Med Ordered
[2022-05-30] VITALS (9 sets, daily range): BP systolic 103–138; BP diastolic 64–82; PULSE 72–98; RESP 13–21; TEMP 36.1–36.6; O2SAT 92–98
[2022-05-30] MEDS: Heparin Sodium,Porcine 5,000 UNIT/ML VIAL 5000 UNIT SUBCUT ×3 (00:22→17:09)
[2022-05-30] MEDS: HYDROmorphone HCl 0.5 MG/0.5 ML SYRINGE IVPUSH (00:22)
[2022-05-30] MEDS: 0.9 % Sodium Chloride Flush 3 ML SYRINGE IVFLUSH ×4 (00:23→23:28)
[2022-05-30] MEDS: Morphine Sulfate ER 15 MG TABLET.ER PO ×2 (06:03→18:45)
[2022-05-30 07:03] LABS: MANUAL DIFF FLAG NO
[2022-05-30 07:25] LABS: Basophils Percent Auto 0.3 % (0-2); Hemoglobin 12.3 g/dl (14.0-18.0); Imm Gran Abs Auto 0.48 X10*3/uL (0.00-0.03); Imm Gran Pct Auto 4.9 % (0.0-0.4); Lymphocytes Absolute Auto 1.1 X10*3/uL (1.2-4.9); Lymphocytes Percent Auto 10.8 % (20-40); Mean Corpuscular HGB Conc 33.2 g/dl (31.0-36.0); Mean Corpuscular Hemoglobin 28.3 pg (27.0-33.0); Mean Corpuscular Volume 85.1 fL (80.0-98.0); Monocytes Absolute Auto 0.1 X10*3/uL (0.1-1.2); Monocytes Percent Auto 1.3 % (2-11); Neutrophils Percent Auto 82.7 % (45-73); Platelet Count 136 X10*3/uL (160-400); Red Blood Count 4.35 X10*6/uL (4.60-5.80); Red Cell Distribution Width 13.9 % (11.0-16.0); White Blood Count 9.7 X10*3/uL (4.8-10.8)
[2022-05-30 07:39] LABS: Anion Gap 17 (12-20); Blood Urea Nitrogen 39 mg/dL (9-16); Calcium 10.7 mg/dL (8.4-10.2); Carbon Dioxide 23 mmol/L (22-29); Chloride 103 mmol/L (96-108); Creatinine Clr Calc Pharmacy 55.3; Estimated Glomerular Filt Rate > 60; Glucose Random 149 mg/dL (60-115); Potassium 4.3 mmol/L (3.3-5.1); Sodium 139 mmol/L (135-145); Troponin-I High Sensitivity 487.9 ng/L (<3.5-35.0)
[2022-05-30] MEDS: amLODIPine Besylate 5 MG TABLET PO (09:31)
[2022-05-30] MEDS: Omeprazole 40 MG CAPSULE.DR PO (09:31)
[2022-05-30] MEDS: Sertraline HCL 100 MG TABLET PO (09:32)
[2022-05-30] MEDS: Multivitamin TABLET 1 TAB PO (09:32)
[2022-05-30] MEDS: Lactated Ringers 1,000 ML 100 ML IVCONT (09:34)
--- NOTE | 2022-05-30 11:04 | PC.NURSE ---
Patient sent to CT Scan on stretcher with marinator
--- NOTE | 2022-05-30 11:09 | PM.CNCAR ---
History of Present Illness History of Present Illness Date of Service: 05/30/22 Requesting physician: Janet Dutta Consult reason: troponin elevation Chief complaint: chest pain Narrative: I was consulted to see John in cardiology consultation today for elevated troponins. History was obtained from the patient and patient's chart as well as from patient's daughter. Patient is somewhat forgetful about his history. Patient has prior history of lung cancer status post lobectomy, also history of esophageal cancer in 1997 treated with chemoradiation as per him. No surgery at that time. No prior cardiac issues as per him. He has never had a heart attack or stent or vascular events. Prior history of TIA. 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 He said he has been having recurrent congestion for the last 6 years around fall time and labels it to allergies but he said usually able to self treated at home. This time around he was admitted in early part of May on May 22 with right rib pain while playing golf and came to the hospital. At that time is pain was not ischemic in nature was seen by Dr. Durand, and had again elevated troponins at that time but echocardiogram was normal an EKG was nonischemic. Due to nonischemic nature of pain and EKG he was managed medically. Echocardiogram done at that time which showed normal LV systolic function without any major wall motion abnormality. He came again to the hospital with congestion as per him. Daughter saw him yesterday he was complaints of right rib pain and then was looking short of breath and she called 911 and brought him to the emergency room. In the emergency room the troponins were repeated for unclear reason it does not have any typical ischemic symptoms and EKG was normal and this was further elevated. Troponin this morning is down trending. Patient denies any episodes of chest pressure or heaviness in his chest. He said he just congested. He has wheezing and says he short of breath. He has been getting fluids to get a CT scan of his chest. He appears to be more short of breath now. At home he did not have any orthopnea or PND. He is a very vague historian otherwise. Review of Systems Constitutional: Constitutional: Reports no additional constitutional complaints Eyes: Eyes: Reports no additional eye complaints Cardiovascular: Cardiovascular: Denies chest pain with activity, Denies leg edema, Denies lightheadedness, Denies Loss of Consciousness, Denies palpitations, Reports dyspnea on exertion and Denies orthopnea Respiratory: Respiratory: Reports chest congestion, Reports cough, Reports dyspnea on exertion and Reports wheezing Gastrointestinal: Gastrointestinal: Reports no additional gastrointestinal complaints Genitourinary: Genitourinary: Reports no additional male genitourinary complaints Musculoskeletal: Musculoskeletal: Reports no additional musculoskeletal complaints Integumentary/Breasts: Skin/Breast: Reports system reviewed and no additional complaints, except as docu Neurologic: Reports system reviewed and no additional complaints, except as documented Psychiatric: Psychiatric: Reports no additional psychiatric complaints Endocrine: Endocrine: Reports no additional endocrine complaints and Denies palpitations Hematologic/Lymphatic: Hematologic/Lymphatic: Reports no additional hematologic/lymphatic complaints Allergic/Immunologic: Allergic/Immunologic: Reports wheezing PMFSH Past Medical History Medical History Abnormal colonoscopy Arthritis Depression Elevated cholesterol GERD (gastroesophageal reflux disease) History of esophageal cancer HTN (hypertension) Hx of cancer of lung Family History Family History Other No family history of coronary artery disease Surgical History Surgical History H/O colonoscopy History of esophagogastroduodenoscopy (EGD) History of surgery on left wrist Hx of tonsillectomy Social History Social History Household Members: Spouse Housing: House Are you a primary rn coronary care unit to a significant other at home: No Do you presently have visiting nurse or other home services: No Alcohol intake: never Patient Tobacco Use Status: Never used Tobacco Advance Directives: No Advance Directives Information Provided: No Advance Directives Date on File: 05/22/22 service: No Current occupational status: retired Meds Allergies Allergy/AdvReac Type Severity Reaction Status Date / Time erythromycin base Allergy Mild HIVES Verified 11/12/20 08:00 [Erythromycin Base] levofloxacin Allergy Unknown Unknown Verified 11/12/20 08:00 Active Medications: Current Medications Acetaminophen (Acetaminophen 325 Mg Tablet) 650 mg PO Q6H PRN PRN Reason: Pain, Mild (Pain Scale 1-3) Amlodipine Besylate (Amlodipine Besylate 5 Mg Tablet) 5 mg PO DAILY PENDING SALE TO [facility]; Protocol Last Admin: 05/30/22 09:31 Dose: 5 mg Atorvastatin Calcium (Atorvastatin Calcium 20 Mg Tablet) 20 mg PO BEDTIME PENDING SALE TO [facility] Albuterol Sulfate 2.5 mg/ (Albuterol/Ipratropium 3 ml) 0 mg INHALE ONCE ONE Stop: 05/30/22 11:00 Furosemide (Furosemide 20 Mg/2 Ml Vial) 20 mg IVPUSH ONCE ONE; Protocol Stop: 05/30/22 11:01 Heparin Sodium (Porcine) (Heparin Sodium,Porcine 5,000 Unit/Ml Vial) 5,000 unit SUBCUT Q8H PENDING SALE TO [facility] Last Admin: 05/30/22 09:36 Dose: 5,000 unit Hydromorphone HCl (Hydromorphone Hcl 0.5 Mg/0.5 Ml Syringe) 0.5 mg IVPUSH Q4H PRN; Protocol PRN Reason: Pain, Severe (Pain Scale 7-10) Last Admin: 05/30/22 00:22 Dose: 0.5 mg Lactated Ringer's (Lr) 1,000 mls @ 100 mls/hr IVCONT .Q10H PENDING SALE TO [facility] Last Admin: 05/30/22 09:34 Dose: 100 mls/hr Melatonin (Melatonin 3 Mg Tablet) 6 mg PO BEDTIME PRN PRN Reason: Insomnia Morphine Sulfate (Morphine Sulfate Er 15 Mg Tablet.Er) 15 mg PO Q12H PENDING SALE TO [facility] Last Admin: 05/30/22 06:03 Dose: 15 mg Multivitamins/Vitamin C (Multivitamin Tablet) 1 tab PO DAILY PENDING SALE TO [facility] Last Admin: 05/30/22 09:32 Dose: 1 tab Omeprazole (Omeprazole 40 Mg Capsule.Dr) 40 mg PO DAILY PENDING SALE TO [facility] Last Admin: 05/30/22 09:31 Dose: 40 mg Oxycodone HCl (Oxycodone Hcl Immed Release 5 Mg Tablet) 5 mg PO Q8H PRN PRN Reason: Pain, Moderate (Pain Scale 4-6 Pharmacy Consult (Consult Rx Perform Med Rec) 1 each MISCELLANE ONCE PRN PRN Reason: Consult order Senna (Sennosides 8.6 Mg Tablet) 17.2 mg PO BEDTIME PRN PRN Reason: Constipation Sertraline HCl (Sertraline Hcl 100 Mg Tablet) 100 mg PO DAILY PENDING SALE TO [facility] Last Admin: 05/30/22 09:32 Dose: 100 mg Sodium Chloride (0.9 % Sodium Chloride Flush 3 Ml Syringe) 3 ml IVFLUSH QSHIFT PENDING SALE TO [facility] Last Admin: 05/30/22 09:31 Dose: 3 ml Home Medications Medication Instructions Recorded Confirmed Last Taken Type atorvastatin 20 mg tablet 20 mg PO BEDTIME 11/07/20 05/29/22 Unknown History losartan 50 mg tablet 50 mg PO DAILY 11/07/20 05/29/22 Unknown History omeprazole 40 mg capsule,delayed 40 mg PO DAILY 11/07/20 05/29/22 Unknown History release sertraline 100 mg tablet 100 mg PO DAILY 11/07/20 05/29/22 11/12/20 07:30 History vitamin B complex 1 cap PO DAILY 05/21/22 05/29/22 Unknown History lidocaine 4 % topical patch 1 patch transdermal DAILY PRN Pain 05/29/22 05/29/22 Unknown History (Lidocaine Pain Relief) morphine 15 mg tablet,extended 1 tab PO Q12H 05/29/22 05/29/22 05/29/22 07:00 History release Physical Exam Vital Signs: Vital Signs: Last Vital Signs Temp 98.5 F 05/29/22 19:51 Pulse 72 05/30/22 08:34 Resp 18 05/30/22 09:46 BP 131/80 05/30/22 09:46 Pulse Ox 95 05/30/22 09:46 O2 Del Method 05/30/22 09:46 O2 Flow Rate 3 05/30/22 08:34 Oxygen Flow Rate 2 05/29/22 19:51 BMI result Body Mass Index 23.6 Const: General: cooperative, comfortable, alert, awake and in distress moderate and respiratory Nutritional Appearance: underweight Orientation/consciousness: patient oriented x3 HEENT: Head: Yes normocephalic and Yes atraumatic Neck: Neck: Yes trachea midline, Yes supple and Yes no JVD Resp: Effort & Inspection: normal respiratory effort and tachypneic Auscultation: crackles (Coarse) on the right at the base and wheezes scattered wheezes Cardio: Jugular venous distension: no JVD Palpation: normal PMI Rate: regular rate Rhythm: regular rhythm Heart sounds: S1 normal heart sound present, S2 normal heart sound present, no click, no gallops, no murmurs and no rubs GI: Auscultation: normal bowel sounds Skin: General skin exam: no rashes or lesions noted and ecchymosis Neuro: General: patient oriented x3 and no focal motor deficits Extrem: General: Yes no clubbing, cyanosis or edema Objective Labs and Meds Result diagrams: 05/30/22 06:57 05/30/22 06:57 Lab results: Laboratory Results - last 24 hr 05/29/22 05/29/22 05/29/22 20:09 20:09 20:09 WBC 13.2 H RBC 4.72 Hgb 13.3 L Hct 39.2 L MCV 83.1 MCH 28.2 MCHC 33.9 RDW 14.0 Plt Count 127 L MPV 9.4 Immature Gran % (Auto) Cancelled Neut % (Auto) Cancelled Lymph % (Auto) Cancelled [place] % (Auto) Cancelled Eos % (Auto) Cancelled Baso % (Auto) Cancelled Lymph # (Auto) Cancelled [place] # (Auto) Cancelled Eos # (Auto) Cancelled Baso # (Auto) Cancelled Abs Immat Gran (auto) Cancelled Absolute Neuts (auto) Cancelled Absolute Nucleated RBC 0.000 Nucleated RBC % (auto) 0.0 Neutrophils % (Manual) 84 H Band Neutrophils % 4 Lymphocytes % (Manual) 5 L Monocytes % (Manual) 3 Eosinophils % (Manual) 3 Basophils % (Manual) 1 Abs Neuts (Manual) 11.6 H Lymphocytes # (Manual) 0.7 L Monocytes # (Manual) 0.4 Eosinophils # (Manual) 0.4 Basophils # (Manual) 0.1 Platelet Estimate SLIGHTLY DECREASED Plt Morphology Comment NORMAL RBC Morphology NOTED Polychromasia 1+ (0-2) Basophilic Stippling 1+ (0-2) D-Dimer High Sensitivty 18834 Sodium Potassium Chloride Carbon Dioxide Anion Gap BUN Creatinine Estim Creat Clear Calc Estimated GFR Random Glucose Lactic Acid Calcium Total Bilirubin Direct Bilirubin AST ALT Alkaline Phosphatase Troponin I High Sens 1256.6 H* D B-Natriuretic Peptide 26 Total Protein Albumin Lipase Urine Color Urine Appearance Urine pH Ur Specific [place] Urine Protein Urine Glucose (UA) Urine Ketones Urine Blood Urine Nitrite Ur Leukocyte Esterase Urine RBC Urine WBC Ur Squamous Epith Cells Urine Bacteria Hyaline Casts Influenza Type A (PCR) Influenza Type B (PCR) RSV RNA Qual (PCR) SARS-CoV-2 RNA (RT-PCR) 05/29/22 05/29/22 05/29/22 20:09 20:09 20:09 WBC RBC Hgb Hct MCV MCH MCHC RDW Plt Count MPV Immature Gran % (Auto) Neut % (Auto) Lymph % (Auto) [place] % (Auto) Eos % (Auto) Baso % (Auto) Lymph # (Auto) [place] # (Auto) Eos # (Auto) Baso # (Auto) Abs Immat Gran (auto) Absolute Neuts (auto) Absolute Nucleated RBC Nucleated RBC % (auto) Neutrophils % (Manual) Band Neutrophils % Lymphocytes % (Manual) Monocytes % (Manual) Eosinophils % (Manual) Basophils % (Manual) Abs Neuts (Manual) Lymphocytes # (Manual) Monocytes # (Manual) Eosinophils # (Manual) Basophils # (Manual) Platelet Estimate Plt Morphology Comment RBC Morphology Polychromasia Basophilic Stippling D-Dimer High Sensitivty Sodium Potassium Chloride Carbon Dioxide Anion Gap BUN Creatinine Estim Creat Clear Calc Estimated GFR Random Glucose Lactic Acid 1.4 Calcium Total Bilirubin Direct Bilirubin AST ALT Alkaline Phosphatase Troponin I High Sens B-Natriuretic Peptide Cancelled Total Protein Albumin Lipase Urine Color Urine Appearance Urine pH Ur Specific [place] Urine Protein Urine Glucose (UA) Urine Ketones Urine Blood Urine Nitrite Ur Leukocyte Esterase Urine RBC Urine WBC Ur Squamous Epith Cells Urine Bacteria Hyaline Casts Influenza Type A (PCR) NEGATIVE Influenza Type B (PCR) NEGATIVE RSV RNA Qual (PCR) NEGATIVE SARS-CoV-2 RNA (RT-PCR) NEGATIVE 05/29/22 05/29/22 05/30/22 21:13 21:13 06:57 WBC 9.7 RBC 4.35 L Hgb 12.3 L Hct 37.0 L MCV 85.1 MCH 28.3 MCHC 33.2 RDW 13.9 Plt Count 136 L MPV 10.0 Immature Gran % (Auto) 4.9 H Neut % (Auto) 82.7 H Lymph % (Auto) 10.8 L [place] % (Auto) 1.3 L Eos % (Auto) 0.0 Baso % (Auto) 0.3 Lymph # (Auto) 1.1 L [place] # (Auto) 0.1 Eos # (Auto) 0.0 Baso # (Auto) 0.0 Abs Immat Gran (auto) 0.48 H Absolute Neuts (auto) 8.0 Absolute Nucleated RBC 0.000 Nucleated RBC % (auto) 0.0 Neutrophils % (Manual) Band Neutrophils % Lymphocytes % (Manual) Monocytes % (Manual) Eosinophils % (Manual) Basophils % (Manual) Abs Neuts (Manual) Lymphocytes # (Manual) Monocytes # (Manual) Eosinophils # (Manual) Basophils # (Manual) Platelet Estimate Plt Morphology Comment RBC Morphology Polychromasia Basophilic Stippling D-Dimer High Sensitivty Sodium 141 Potassium 4.0 Chloride 98 Carbon Dioxide 28 Anion Gap 19 BUN 42 H D Creatinine 1.07 Estim Creat Clear Calc 50.7 Estimated GFR > 60 Random Glucose 109 Lactic Acid Calcium 11.8 H D Total Bilirubin 0.6 Direct Bilirubin 0.3 AST 30 D ALT 28 Alkaline Phosphatase 155 H D Troponin I High Sens B-Natriuretic Peptide Total Protein 7.0 Albumin 4.0 Lipase 829 H Urine Color Yellow Urine Appearance Clear Urine pH 5.5 Ur Specific [place] 1.020 Urine Protein 100 (2+) H Urine Glucose (UA) Negative Urine Ketones Negative Urine Blood Large (3+) H Urine Nitrite Negative Ur Leukocyte Esterase Negative Urine RBC >20 H Urine WBC 0-5 Ur Squamous Epith Cells 0-2 Urine Bacteria None Seen Hyaline Casts 3-5 Influenza Type A (PCR) Influenza Type B (PCR) RSV RNA Qual (PCR) SARS-CoV-2 RNA (RT-PCR) 05/30/22 05/30/22 06:57 06:57 WBC RBC Hgb Hct MCV MCH MCHC RDW Plt Count MPV Immature Gran % (Auto) Neut % (Auto) Lymph % (Auto) [place] % (Auto) Eos % (Auto) Baso % (Auto) Lymph # (Auto) [place] # (Auto) Eos # (Auto) Baso # (Auto) Abs Immat Gran (auto) Absolute Neuts (auto) Absolute Nucleated RBC Nucleated RBC % (auto) Neutrophils % (Manual) Band Neutrophils % Lymphocytes % (Manual) Monocytes % (Manual) Eosinophils % (Manual) Basophils % (Manual) Abs Neuts (Manual) Lymphocytes # (Manual) Monocytes # (Manual) Eosinophils # (Manual) Basophils # (Manual) Platelet Estimate Plt Morphology Comment RBC Morphology Polychromasia Basophilic Stippling D-Dimer High Sensitivty Sodium 139 Potassium 4.3 Chloride 103 Carbon Dioxide 23 Anion Gap 17 BUN 39 H Creatinine 0.98 Estim Creat Clear Calc 55.3 Estimated GFR > 60 Random Glucose 149 H D Lactic Acid Calcium 10.7 H D Total Bilirubin Direct Bilirubin AST ALT Alkaline Phosphatase Troponin I High Sens 487.9 H* D B-Natriuretic Peptide Total Protein Albumin Lipase Urine Color Urine Appearance Urine pH Ur Specific [place] Urine Protein Urine Glucose (UA) Urine Ketones Urine Blood Urine Nitrite Ur Leukocyte Esterase Urine RBC Urine WBC Ur Squamous Epith Cells Urine Bacteria Hyaline Casts Influenza Type A (PCR) Influenza Type B (PCR) RSV RNA Qual (PCR) SARS-CoV-2 RNA (RT-PCR) Imaging Radiologist's impression: Impressions Chest X-Ray 05/29/22 20:29 IMPRESSION: Chronic increased interstitial lung markings. Postsurgical changes of right lung. No acute airspace disease. Assessment and Plan (1) NSTEMI (non-ST elevated myocardial infarction): Status: Acute Patient with no typical symptoms of ischemia and no EKG changes but elevated troponin consistent with non-STEMI with clear fall in his troponin. This could be secondary to his underlying pulmonary situation with COPD exacerbation bronchospastic airway disease. At this point time manage his underlying condition. Had a detailed discussion with her daughter and given his malignancy status with metastatic disease she is in agreement to pursue conservative management. Will treat him with aspirin, high-intensity statins and months bronchospasm improves a little bit with metoprolol therapy. We discussed about ischemic workup at this point time they do not want to pursue any ischemic workup which is reasonable given that his long-term prognosis is limited. He has high likely referring underlying obstructive CAD based on his risk factors. Management will be medical. Please repeat limited echocardiogram to assess for wall motion abnormality other possibility includes takotsubo cardiomyopathy although less likely. (2) COPD exacerbation: Status: Acute Patient appears to be in respiratory distress. Appears to be diffusely wheezing and suggestive bronchospastic airway disease most likely due to undiagnosed COPD exacerbation. Will consider bronchodilator therapy. Have provided him with the stat inhaled therapy. Also given him low-dose Lasix given crackly lungs and recently receiving fluid as well as elevated troponins. Obtain echocardiogram. Supportive management. Consider pulmonary consultation. Will sign of the case at this point time. Thank you for allowing us to partake in his care Procedures Date of Service Date of Service: 05/30/22
--- NOTE | 2022-05-30 11:14 | MHC.CM.PN ---
met with pt who lives alone pt is rylee soto x2 has own ride home and does not anticapate needing servcis when dcd
[2022-05-30] MEDS: iohexoL 350 MG/ML 100 ML INFUS..BTL IV (11:21)
[2022-05-30] MEDS: Albuterol Sulfate 2.5 MG, Albuterol/Iprat 2.5/0.5MG 3 ML 3 ML INHALE (11:31)
[2022-05-30] MEDS: Furosemide 20 MG/2 ML VIAL IVPUSH (12:00)
--- NOTE | 2022-05-30 12:08 | PC.NURSE ---
Cardiology into see patient. Fines rales audible avila. with scattered wheezes. Duoneb given by resp therapist. IV lasix 20mg IVP given per MD order o2 say 97% 1Lnc
--- NOTE | 2022-05-30 12:13 | PC.NURSE ---
Embroidery Supervisor into see patient. Rales noted avila with scattered wheezes. Duoneb given by RT. 20mg Lasix given IV and [place] cath placed. 96% 1LNC
--- NOTE | 2022-05-30 15:05 | HO.PM.IMPN ---
Subjective Subjective Date of Service: 05/30/22 Interval History: seen and examined this morning admitted overnight for chest pain, NSTEMI denies pain at the time of evaluation, denies SOB Review of Systems Review of Systems: Yes all other systems are reviewed and are negative Constitutional Constitutional: Denies chills and Denies fever(s) ENT Ears, Nose, Mouth, and Throat: Denies dizziness Cardiovascular Cardiovascular: Denies chest pain, Denies palpitations and Denies dyspnea Respiratory Respiratory: Denies cough and Denies dyspnea Neurologic Neurologic: Denies dizziness Endocrine Endocrine: Denies palpitations Physical Exam Vital Signs: Vital Signs: Last Vital Signs Temp 96.9 F 05/30/22 11:49 Pulse 98 05/30/22 11:49 Resp 13 05/30/22 11:49 BP 114/82 05/30/22 11:49 Pulse Ox 97 05/30/22 11:49 O2 Del Method 05/30/22 11:49 O2 Flow Rate 1 05/30/22 11:49 Oxygen Flow Rate 2 05/29/22 19:51 BMI result Body Mass Index 23.6 Const: General: comfortable, alert and awake Nutritional Appearance: average body habitus Resp: Effort & Inspection: normal respiratory effort and able to speak in complete sentences Auscultation: diminished lung sounds Cardio: Rate: regular rate Heart sounds: S1 normal heart sound present and S2 normal heart sound present GI: Inspection: No distended Palpation (GI): Soft to palpation and nontender Extrem: General: Yes no pedal edema Objective Data Active Medications Acetaminophen (Acetaminophen 325 Mg Tablet) 650 mg PO Q6H PRN PRN Reason: Pain, Mild (Pain Scale 1-3) Amlodipine Besylate (Amlodipine Besylate 5 Mg Tablet) 5 mg PO DAILY [facility]; Protocol Last Admin: 05/30/22 09:31 Dose: 5 mg Documented By: BRITTANI Atorvastatin Calcium (Atorvastatin Calcium 20 Mg Tablet) 20 mg PO BEDTIME [facility] Heparin Sodium (Porcine) (Heparin Sodium,Porcine 5,000 Unit/Ml Vial) 5,000 unit SUBCUT Q8H [facility] Last Admin: 05/30/22 09:36 Dose: 5,000 unit Documented By: BRITTANI Hydromorphone HCl (Hydromorphone Hcl 0.5 Mg/0.5 Ml Syringe) 0.5 mg IVPUSH Q4H PRN; Protocol PRN Reason: Pain, Severe (Pain Scale 7-10) Last Admin: 05/30/22 00:22 Dose: 0.5 mg Documented By: APRIL Lactated Ringer's (Lr) 1,000 mls @ 100 mls/hr IVCONT .Q10H [facility] Last Admin: 05/30/22 09:34 Dose: 100 mls/hr Documented By: BRITTANI Melatonin (Melatonin 3 Mg Tablet) 6 mg PO BEDTIME PRN PRN Reason: Insomnia Morphine Sulfate (Morphine Sulfate Er 15 Mg Tablet.Er) 15 mg PO Q12H [facility] Last Admin: 05/30/22 06:03 Dose: 15 mg Documented By: APRIL Multivitamins/Vitamin C (Multivitamin Tablet) 1 tab PO DAILY [facility] Last Admin: 05/30/22 09:32 Dose: 1 tab Documented By: BRITTANI Omeprazole (Omeprazole 40 Mg Capsule.Dr) 40 mg PO DAILY [facility] Last Admin: 05/30/22 09:31 Dose: 40 mg Documented By: BRITTANI Oxycodone HCl (Oxycodone Hcl Immed Release 5 Mg Tablet) 5 mg PO Q8H PRN PRN Reason: Pain, Moderate (Pain Scale 4-6 Pharmacy Consult (Consult Rx Perform Med Rec) 1 each MISCELLANE ONCE PRN PRN Reason: Consult order Senna (Sennosides 8.6 Mg Tablet) 17.2 mg PO BEDTIME PRN PRN Reason: Constipation Sertraline HCl (Sertraline Hcl 100 Mg Tablet) 100 mg PO DAILY [facility] Last Admin: 05/30/22 09:32 Dose: 100 mg Documented By: BRITTANI Sodium Chloride (0.9 % Sodium Chloride Flush 3 Ml Syringe) 3 ml IVFLUSH QSHIFT [facility] Last Admin: 05/30/22 09:31 Dose: 3 ml Documented By: BRITTANI Labs CBC & Chem 7: 05/30/22 06:57 05/30/22 06:57 Labs: Laboratory Results - last 24 hr 05/29/22 05/29/22 05/29/22 20:09 20:09 20:09 MCV 83.1 MCH 28.2 MCHC 33.9 RDW 14.0 Plt Count 127 L MPV 9.4 Immature Gran % (Auto) Cancelled Neut % (Auto) Cancelled Lymph % (Auto) Cancelled Davison % (Auto) Cancelled Eos % (Auto) Cancelled Baso % (Auto) Cancelled Lymph # (Auto) Cancelled [place] # (Auto) Cancelled Eos # (Auto) Cancelled Baso # (Auto) Cancelled Abs Immat Gran (auto) Cancelled Absolute Neuts (auto) Cancelled Absolute Nucleated RBC 0.000 Nucleated RBC % (auto) 0.0 Neutrophils % (Manual) 84 H Band Neutrophils % 4 Lymphocytes % (Manual) 5 L Monocytes % (Manual) 3 Eosinophils % (Manual) 3 Basophils % (Manual) 1 Abs Neuts (Manual) 11.6 H Lymphocytes # (Manual) 0.7 L Monocytes # (Manual) 0.4 Eosinophils # (Manual) 0.4 Basophils # (Manual) 0.1 Platelet Estimate SLIGHTLY DECREASED Plt Morphology Comment NORMAL RBC Morphology NOTED Polychromasia 1+ (0-2) Basophilic Stippling 1+ (0-2) D-Dimer High Sensitivty 70318 Anion Gap Estim Creat Clear Calc Estimated GFR Random Glucose Lactic Acid Calcium Total Bilirubin Direct Bilirubin AST ALT Alkaline Phosphatase B-Natriuretic Peptide 26 Total Protein Albumin Lipase Urine Color Urine Appearance Urine pH Ur Specific [place] Urine Protein Urine Glucose (UA) Urine Ketones Urine Blood Urine Nitrite Ur Leukocyte Esterase Urine RBC Urine WBC Ur Squamous Epith Cells Urine Bacteria Hyaline Casts Influenza Type A (PCR) Influenza Type B (PCR) RSV RNA Qual (PCR) SARS-CoV-2 RNA (RT-PCR) 05/29/22 05/29/22 05/29/22 20:09 20:09 20:09 MCV MCH MCHC RDW Plt Count MPV Immature Gran % (Auto) Neut % (Auto) Lymph % (Auto) Davison % (Auto) Eos % (Auto) Baso % (Auto) Lymph # (Auto) Dav[place] # (Auto) Eos # (Auto) Baso # (Auto) Abs Immat Gran (auto) Absolute Neuts (auto) Absolute Nucleated RBC Nucleated RBC % (auto) Neutrophils % (Manual) Band Neutrophils % Lymphocytes % (Manual) Monocytes % (Manual) Eosinophils % (Manual) Basophils % (Manual) Abs Neuts (Manual) Lymphocytes # (Manual) Monocytes # (Manual) Eosinophils # (Manual) Basophils # (Manual) Platelet Estimate Plt Morphology Comment RBC Morphology Polychromasia Basophilic Stippling D-Dimer High Sensitivty Anion Gap Estim Creat Clear Calc Estimated GFR Random Glucose Lactic Acid 1.4 Calcium Total Bilirubin Direct Bilirubin AST ALT Alkaline Phosphatase B-Natriuretic Peptide Cancelled Total Protein Albumin Lipase Urine Color Urine Appearance Urine pH Ur Specific [place] Urine Protein Urine Glucose (UA) Urine Ketones Urine Blood Urine Nitrite Ur Leukocyte Esterase Urine RBC Urine WBC Ur Squamous Epith Cells Urine Bacteria Hyaline Casts Influenza Type A (PCR) NEGATIVE Influenza Type B (PCR) NEGATIVE RSV RNA Qual (PCR) NEGATIVE SARS-CoV-2 RNA (RT-PCR) NEGATIVE 05/29/22 05/29/22 05/30/22 21:13 21:13 06:57 MCV 85.1 MCH 28.3 MCHC 33.2 RDW 13.9 Plt Count 136 L MPV 10.0 Immature Gran % (Auto) 4.9 H Neut % (Auto) 82.7 H Lymph % (Auto) 10.8 L [place] % (Auto) 1.3 L Eos % (Auto) 0.0 Baso % (Auto) 0.3 Lymph # (Auto) 1.1 L [place] # (Auto) 0.1 Eos # (Auto) 0.0 Baso # (Auto) 0.0 Abs Immat Gran (auto) 0.48 H Absolute Neuts (auto) 8.0 Absolute Nucleated RBC 0.000 Nucleated RBC % (auto) 0.0 Neutrophils % (Manual) Band Neutrophils % Lymphocytes % (Manual) Monocytes % (Manual) Eosinophils % (Manual) Basophils % (Manual) Abs Neuts (Manual) Lymphocytes # (Manual) Monocytes # (Manual) Eosinophils # (Manual) Basophils # (Manual) Platelet Estimate Plt Morphology Comment RBC Morphology Polychromasia Basophilic Stippling D-Dimer High Sensitivty Anion Gap 19 Estim Creat Clear Calc 50.7 Estimated GFR > 60 Random Glucose 109 Lactic Acid Calcium 11.8 H D Total Bilirubin 0.6 Direct Bilirubin 0.3 AST 30 D ALT 28 Alkaline Phosphatase 155 H D B-Natriuretic Peptide Total Protein 7.0 Albumin 4.0 Lipase 829 H Urine Color Yellow Urine Appearance Clear Urine pH 5.5 Ur Specific [place] 1.020 Urine Protein 100 (2+) H Urine Glucose (UA) Negative Urine Ketones Negative Urine Blood Large (3+) H Urine Nitrite Negative Ur Leukocyte Esterase Negative Urine RBC >20 H Urine WBC 0-5 Ur Squamous Epith Cells 0-2 Urine Bacteria None Seen Hyaline Casts 3-5 Influenza Type A (PCR) Influenza Type B (PCR) RSV RNA Qual (PCR) SARS-CoV-2 RNA (RT-PCR) 05/30/22 06:57 MCV MCH MCHC RDW Plt Count MPV Immature Gran % (Auto) Neut % (Auto) Lymph % (Auto) [place] % (Auto) Eos % (Auto) Baso % (Auto) Lymph # (Auto) Dav[place] # (Auto) Eos # (Auto) Baso # (Auto) Abs Immat Gran (auto) Absolute Neuts (auto) Absolute Nucleated RBC Nucleated RBC % (auto) Neutrophils % (Manual) Band Neutrophils % Lymphocytes % (Manual) Monocytes % (Manual) Eosinophils % (Manual) Basophils % (Manual) Abs Neuts (Manual) Lymphocytes # (Manual) Monocytes # (Manual) Eosinophils # (Manual) Basophils # (Manual) Platelet Estimate Plt Morphology Comment RBC Morphology Polychromasia Basophilic Stippling D-Dimer High Sensitivty Anion Gap 17 Estim Creat Clear Calc 55.3 Estimated GFR > 60 Random Glucose 149 H D Lactic Acid Calcium 10.7 H D Total Bilirubin Direct Bilirubin AST ALT Alkaline Phosphatase B-Natriuretic Peptide Total Protein Albumin Lipase Urine Color Urine Appearance Urine pH Ur Specific [place] Urine Protein Urine Glucose (UA) Urine Ketones Urine Blood Urine Nitrite Ur Leukocyte Esterase Urine RBC Urine WBC Ur Squamous Epith Cells Urine Bacteria Hyaline Casts Influenza Type A (PCR) Influenza Type B (PCR) RSV RNA Qual (PCR) SARS-CoV-2 RNA (RT-PCR) Assessment and Plan (1) NSTEMI (non-ST elevated myocardial infarction): Status: Acute (2) Lung malignancy: Status: Acute (3) Hypercalcemia: Status: Acute (4) Compression fracture of thoracic spine, non-traumatic: Status: Acute (5) Right rib fracture: Status: Acute Plan 72-year-old male with a past medical history of hypertension, hyperlipidemia, anxiety, depression, history of esophageal cancer status post radiation 1997/ recurrence in: 16 /adenomatous polyp of the colon; recent admission to the hospital for chest pain/ elevated troponins; presented to the hospital today with a chief complaint of chest pain. NSTEMI Troponin elevated to 1250, repeat down to around 400 repeat CTA negative for central PE seen by cardiology - recommend conservative/medical management, no aggressive management and no further ischemic workup given malignancy -asa on hold for outpatient biopsy -high intensity statin therapy -limited echo to eval for WMA Shortness of breath no sob this am, and patient denies currently but cardiology reported sob in note CTA negative for central PE, LE dopplers pending CTA showing worsening thickening of intralobular septa in both lungs which could represent a feature of lymphangitic tumor spread or possible superimposed pulmonary edema. New left pleural effusion probably r/t worsening malignancy, possible undiagnosed COPD -will schedule duoneb breathing treatments, systemic steroids -BNP low but will start low dose lasix and assess for effect -pulmonary consult pending Pathologic fractures right 10th rib (old), t7 (old) t10 appears new supportive/symptomatic care Possible pancreatitis lipase 829, but no abdominal pain supportive care trend lipase if abdominal pain, consider CT History of esophageal cancer: Status post radiation /recurrence in 2016. Status post lobectomy in [address] chest showed multiple pulmonary nodules with metastasis/septal thickening with lighted lesions on the 10th rib and compression fractures of the vertebrae Patient being planned for lung biopsy and PET scan as outpatient. Dysphagia: continue ground mechanical diet for now -Speech and swallow eval pending Hypercalcemia Was started on IV fluid but was d/c due to SOB likely r/t pathologic fracture -follow daily Thrombocytopenia Chronic -follow CBC Mood Continue home sertraline DVT prophylaxis: Subcu heparin Code status: DNR/ DNI. Attending - dr. Mahmood Patient requires ongoing inpatient hospitalization for management and workup of shortness of breath, NSTEMI Quality Stroke Does the patient have a stroke diagnosis?: No VTE Prior VTE?: No VTE Risk Level:: Medical - moderate - high VTE Device Contraindication: Treatment Not Indicated VTE Drug Contraindication: N/A - Med Ordered
--- NOTE | 2022-05-30 15:30 | CA_ITS ---
Transthoracic Echocardiogram Limited Patient (Last, First, Middle): John Meade, Gender: Male Date of : 1950 Age: 72 Procedure Date: 05/30/2022 Procedure Type: Transthoracic Echocardiogram Limited Location: ER Height: 160.02 cm Weight: 62.14 kg BSA: 1.65 m2 Heart Rate: bpm BP: 114 / 82 mmHg Biometry Teacher: Referring MD: Janet ZURITA Veneer Stock Grader: Wisam Sierra MD Symptoms: elevated troponin eval for WMA Study Quality: Fair ECG Rhythm: Sinus Conclusions: - Normal LV systolic function with impaired relaxation filling pattern without any significant regional wall motion abnormality Findings Left Ventricle Normal left ventricular size, thickness, and systolic function. The visually estimated ejection fraction is between 60-65%. There is no evidence of regional wall motion abnormalities. Spectral Doppler is indicative of an impaired relaxation filling pattern. Prior Study Comparison No significant change compared to prior study dated: 05/22/2022. Measurements 2D Linear Measurements IVSd: 0.98 0.6-0.9/0.6-1.0 cm LVIDd: 3.34 3.9-5.3/4.2-5.9 cm LVIDd Index: 2.02 2.4-3.2/2.2-3.1 cm/m2 LVIDs: 2.18 2.0-3.6 cm LVPWd: 0.92 0.7-1.1 cm LV Mass: 110.80 67-162/88-224 g LV Mass Index: 67.15 43-95/49-115 g/m2 Aortic Valve AoV Pk Geoffrey: 3.03 AoV Pk Grad: 37.00 Tricuspid Valve TR Pk Geoffrey: 3.27 TR Pk Grad: 43.00 Updated in Other Vendor System with Status of Final Wisam Sierra MD electronically signed on 05/30/2022 4:59:32 PM with status of Final
--- NOTE | 2022-05-30 17:07 | MHC.SLORD ---
Addendum entered and electronically signed by Kathia Bauman MA, CCC-PLASTIC WELDING MACHINE OPERATOR 05/30/22 18:28: D.S. Original Note: Speech Language Pathology Order Status: PLASTIC WELDING MACHINE OPERATOR attempted to see pt for bedside swallow evaluation. Pt reported no troubles swallowing. PA present during attempted visit and confirmed eval would not be needed. If pt is admitted and future concerns for dysphagia arise, refer back to speech.
[2022-05-30] MEDS: Acetaminophen 325 MG TABLET 650 MG PO (17:08)
--- NOTE | 2022-05-30 17:15 | PC.NURSE ---
pt repositioned in bed, reporting left flank and lower back pain, vss, medicated per provider order, daughter at bedside talking w provider re treatment plan.
[2022-05-30] MEDS: methylPREDNISolone Sod Succ 40 MG/ML VIAL IVPUSH (18:46)
[2022-05-30] MEDS: Lidocaine 4 % Patch ADH..PATCH 2 PATCH TRANSDERMA (18:46)
--- NOTE | 2022-05-30 18:59 | PC.NURSE ---
pt a&ox3, vss, audible exp wheezing, medicated per provider order, lidocaine patches applied to right flank and mid back. no new orders at this time.
[2022-05-30] MEDS: Albuterol/Iprat 2.5/0.5MG 3 ML AMPUL.NEB INHALE (19:10)
[2022-05-30] MEDS: Atorvastatin Calcium 80 MG TABLET PO (23:27)
--- NOTE | 2022-05-30 23:31 | PC.NURSE ---
pt a&ox3, vss, medicated per provider order, pt repositioned in bed, humidified O2 via nasal cannula - O2 at 96%. no new orders at this time.
--- NOTE | 2022-05-31 01:56 | PC.NURSE ---
pt sleeping, RR even and unlabored, no noted distress, vss.
[2022-05-31] MEDS: methylPREDNISolone Sod Succ 40 MG/ML VIAL IVPUSH ×2 (06:45→19:10)
[2022-05-31] MEDS: Morphine Sulfate ER 15 MG TABLET.ER PO ×2 (06:45→19:09)
[2022-05-31] MEDS: Heparin Sodium,Porcine 5,000 UNIT/ML VIAL 5000 UNIT SUBCUT ×2 (06:45→19:29)
[2022-05-31 07:18] LABS: Calcium 10.4 mg/dL (8.4-10.2); Lipase 388 U/L (8-78)
[2022-05-31 07:19] LABS: Alanine Aminotransferase 31 U/L (0-40); Albumin Level 3.3 g/dL (3.5-5.0); Alkaline Phosphatase 141 U/L (39-117); Anion Gap 17 (12-20); Aspartate Amino Transferase 26 U/L (5-37); Bilirubin Direct 0.2 mg/dL (0.0-0.5); Bilirubin Total 0.4 mg/dL (0.0-1.0); Blood Urea Nitrogen 36 mg/dL (9-16); Calcium 10.2 mg/dL (8.4-10.2); Carbon Dioxide 25 mmol/L (22-29); Chloride 103 mmol/L (96-108); Creatinine Clr Calc Pharmacy 63.8; Estimated Glomerular Filt Rate > 60; Glucose Random 135 mg/dL (60-115); Potassium 4.5 mmol/L (3.3-5.1); Sodium 140 mmol/L (135-145); Total Protein 5.8 g/dL (6.5-8.0)
[2022-05-31] MEDS: Albuterol/Iprat 2.5/0.5MG 3 ML AMPUL.NEB INHALE ×2 (08:05→19:14)
[2022-05-31 08:06] VITALS: PULSE 90; RESP 20; O2SAT 95
[2022-05-31] MEDS: Furosemide 20 MG/2 ML VIAL IVPUSH (08:26)
[2022-05-31] MEDS: Multivitamin TABLET 1 TAB PO (08:26)
[2022-05-31] MEDS: Omeprazole 40 MG CAPSULE.DR PO (08:26)
[2022-05-31] MEDS: Sertraline HCL 100 MG TABLET PO (08:26)
[2022-05-31] MEDS: amLODIPine Besylate 5 MG TABLET PO (08:26)
--- NOTE | 2022-05-31 08:30 | MHC.CM.PN ---
Received telephone call from patient's daughter, Katia. She can be reached via telephone at [phone]. There are 4 children: Katia, Lena, Claudia and Mauro. All are local except Lena, who lives in [place]. She will be arriving at [facility] around 12:45pm and staying for a month. Lena can be reached via telephone at [phone]. She has been an ER nurse for 20 years. All children are interested in a hospice informational meeting today later in the afternoon. Referral sent in [facility] with contact info provided. Continue to monitor for d/c needs.
[2022-05-31] MEDS: Lidocaine 4 % Patch ADH..PATCH 2 PATCH TRANSDERMA (08:41)
[2022-05-31] MEDS: 0.9 % Sodium Chloride Flush 3 ML SYRINGE IVFLUSH (09:52)
--- NOTE | 2022-05-31 10:33 | P.CONPL_ITS ---
History of Present Illness History of Present Illness Consult date: 05/31/22 Reason for consult: chest pain, hypoxemia and other (Lung Cancer) Chief complaint: chest pain Narrative: I have seen this 72 years old gentleman for pulmonary consultation. Patient is non-conversant. Most of the information I have obtained is from the present medical records. 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 No further treatment provided for this condition. He also has history of lung cancer, treated with right upper lobectomy in 2015. Has had history of adenomatous polyp of the colon in 2020. Recently admitted with chest and back pain and found to have, lytic lesion in the posterior part of right 10th rib, and also compression of T7. Pulmonary nodules noted most likely metastatic. Patient's mental status has been fluctuating, His general health has declined over the past few weeks He has been brought to the hospital mainly because of general decline in his condition, and does not present with any acute respiratory symptoms, He does have nonspecific pain in the back and right lower chest. Denies any wheezing , has had no fever or chills. He has mild intermittent nonspecific cough which has been there for a few years. The notes by the emergency room physician, he indicate that his daughter Claudia has conveyed that family would like to make him a Hospice case, and treat mostly with comfort measures. Review of Systems Review of Systems: Yes Unobtainable due to mental condition PMFSH Past Medical History Medical History Abnormal colonoscopy Arthritis Depression Elevated cholesterol GERD (gastroesophageal reflux disease) History of esophageal cancer HTN (hypertension) Hx of cancer of lung Family History Family History Other No family history of coronary artery disease Surgical History Surgical History H/O colonoscopy History of esophagogastroduodenoscopy (EGD) History of surgery on left wrist Hx of tonsillectomy Social History Social History Household Members: Spouse Housing: House Are you a primary manager long term care to a significant other at home: No Do you presently have visiting nurse or other home services: No Alcohol intake: never Patient Tobacco Use Status: Never used Tobacco Advance Directives: No Advance Directives Information Provided: No Advance Directives Date on File: 05/22/22 service: No Current occupational status: retired Meds Allergies Allergy/AdvReac Type Severity Reaction Status Date / Time erythromycin base Allergy Mild HIVES Verified 11/12/20 08:00 [Erythromycin Base] levofloxacin Allergy Unknown Unknown Verified 11/12/20 08:00 Active Medications: Current Medications Acetaminophen (Acetaminophen 325 Mg Tablet) 650 mg PO Q6H PRN PRN Reason: Pain, Mild (Pain Scale 1-3) Last Admin: 05/30/22 17:08 Dose: 650 mg Albuterol/Ipratropium (Albuterol/Iprat 2.5/0.5mg 3 Ml Ampul.Neb) 3 ml INHALE RQ6H WHILE AWAKE [facility] Last Admin: 05/31/22 08:05 Dose: 3 ml Amlodipine Besylate (Amlodipine Besylate 5 Mg Tablet) 5 mg PO DAILY [facility]; Protocol Last Admin: 05/31/22 08:26 Dose: 5 mg Atorvastatin Calcium (Atorvastatin Calcium 80 Mg Tablet) 80 mg PO BEDTIME [facility] Last Admin: 05/30/22 23:27 Dose: 80 mg Furosemide (Furosemide 20 Mg/2 Ml Vial) 20 mg IVPUSH DAILY [facility]; Protocol Last Admin: 05/31/22 08:26 Dose: 20 mg Heparin Sodium (Porcine) (Heparin Sodium,Porcine 5,000 Unit/Ml Vial) 5,000 unit SUBCUT Q8H [facility] Last Admin: 05/31/22 06:45 Dose: 5,000 unit Hydromorphone HCl (Hydromorphone Hcl 0.5 Mg/0.5 Ml Syringe) 0.5 mg IVPUSH Q4H PRN; Protocol PRN Reason: Pain, Severe (Pain Scale 7-10) Last Admin: 05/30/22 00:22 Dose: 0.5 mg Lidocaine (Lidocaine 4 % Patch Adh..Patch) 2 patch TRANSDERMA DAILY [facility]; Protocol Last Admin: 05/31/22 08:41 Dose: 2 patch Melatonin (Melatonin 3 Mg Tablet) 6 mg PO BEDTIME PRN PRN Reason: Insomnia Methylprednisolone Sodium Succinate (Methylprednisolone Sod Succ 40 Mg/Ml Vial) 40 mg IVPUSH Q12H [facility] Last Admin: 05/31/22 06:45 Dose: 40 mg Morphine Sulfate (Morphine Sulfate Er 15 Mg Tablet.Er) 15 mg PO Q12H [facility] Last Admin: 05/31/22 06:45 Dose: 15 mg Multivitamins/Vitamin C (Multivitamin Tablet) 1 tab PO DAILY [facility] Last Admin: 05/31/22 08:26 Dose: 1 tab Omeprazole (Omeprazole 40 Mg Capsule.Dr) 40 mg PO DAILY [facility] Last Admin: 05/31/22 08:26 Dose: 40 mg Oxycodone HCl (Oxycodone Hcl Immed Release 5 Mg Tablet) 5 mg PO Q8H PRN PRN Reason: Pain, Moderate (Pain Scale 4-6 Pharmacy Consult (Consult Rx Perform Med Rec) 1 each MISCELLANE ONCE PRN PRN Reason: Consult order Senna (Sennosides 8.6 Mg Tablet) 17.2 mg PO BEDTIME PRN PRN Reason: Constipation Sertraline HCl (Sertraline Hcl 100 Mg Tablet) 100 mg PO DAILY [facility] Last Admin: 05/31/22 08:26 Dose: 100 mg Sodium Chloride (0.9 % Sodium Chloride Flush 3 Ml Syringe) [facility] Last Admin: 05/31/22 09:52 Dose: 3 ml Home Medications Medication Instructions Recorded Confirmed Last Taken Type atorvastatin 20 mg tablet 20 mg PO BEDTIME 11/07/20 05/29/22 Unknown History losartan 50 mg tablet 50 mg PO DAILY 11/07/20 05/29/22 Unknown History omeprazole 40 mg capsule,delayed 40 mg PO DAILY 11/07/20 05/29/22 Unknown History release sertraline 100 mg tablet 100 mg PO DAILY 11/07/20 05/29/22 11/12/20 07:30 History vitamin B complex 1 cap PO DAILY 05/21/22 05/29/22 Unknown History lidocaine 4 % topical patch 1 patch transdermal DAILY PRN Pain 05/29/22 05/29/22 Unknown History (Lidocaine Pain Relief) morphine 15 mg tablet,extended 1 tab PO Q12H 05/29/22 05/29/22 05/29/22 07:00 History release Physical Exam Vital Signs: Vital Signs: Last Vital Signs Temp 97.8 F 05/30/22 16:00 Pulse 90 05/31/22 08:06 Resp 20 05/31/22 08:06 BP 138/78 05/30/22 23:30 Pulse Ox 95 05/30/22 23:30 O2 Del Method Humidified O2 05/30/22 23:30 O2 Flow Rate 4 05/30/22 23:30 Oxygen Flow Rate 2 05/29/22 19:51 BMI result Body Mass Index 23.6 Const: General: comfortable (Quiet and non-conversant), no acute distress, alert and awake HEENT: Head: Yes normal to inspection General nose exam: No nasal polyps present and No nasal discharge present Face and sinus: Yes sinuses nontender Mouth: oropharynx normal Throat: Yes posterior oropharynx normal Eyes: General: appearance normal, both eyes and all related structures Neck: Neck: Yes normal visual inspection, Yes no lymphadenopathy, Yes trachea midline and Yes no JVD Thyroid: Thyroid normal Chest: Chest palpation & inspection: normal inspection of the chest, normal palpation of entire chest wall and no tenderness Resp: Other: Percussion note resonant, breath sounds are generally distant . There are no generalized or localized rhonchi wheezes or crepitations. Cardio: Palpation: normal PMI Rate: regular rate Rhythm: regular rhythm Heart sounds: no gallops and no murmurs GI: Palpation (GI): Soft to palpation, nontender, No hepatosplenomegaly present and no masses Auscultation: normal bowel sounds Back/Spine/Pelvis: Other: Not examine Skin: General skin exam: no rashes or lesions noted Neuro: General: no focal motor deficits and CN's II-XI intact bilaterally Extrem: General: Yes normal to inspection, Yes no clubbing, cyanosis or edema and Yes no calf tenderness Psych: Mental Status: other (This 72 years old gentleman is quiet, non- conversant, ) Results Laboratory Findings CBC and BMP: 05/30/22 06:57 05/31/22 05:37 Abnormal lab findings: Abnormal Labs 05/29/22 05/29/22 05/29/22 20:09 20:09 21:13 WBC 13.2 H RBC Hgb 13.3 L Hct 39.2 L Plt Count 127 L Immature Gran % (Auto) Neut % (Auto) Lymph % (Auto) Divide % (Auto) Lymph # (Auto) Abs Immat Gran (auto) Neutrophils % (Manual) 84 H Lymphocytes % (Manual) 5 L Abs Neuts (Manual) 11.6 H Lymphocytes # (Manual) 0.7 L BUN 42 H D Random Glucose Calcium 11.8 H D Alkaline Phosphatase 155 H D Troponin I High Sens 1256.6 H* D Total Protein Albumin Lipase 829 H Urine Protein Urine Blood Urine RBC 05/29/22 05/30/22 05/30/22 21:13 06:57 06:57 WBC RBC 4.35 L Hgb 12.3 L Hct 37.0 L Plt Count 136 L Immature Gran % (Auto) 4.9 H Neut % (Auto) 82.7 H Lymph % (Auto) 10.8 L Divide % (Auto) 1.3 L Lymph # (Auto) 1.1 L Abs Immat Gran (auto) 0.48 H Neutrophils % (Manual) Lymphocytes % (Manual) Abs Neuts (Manual) Lymphocytes # (Manual) BUN 39 H Random Glucose 149 H D Calcium 10.7 H D Alkaline Phosphatase Troponin I High Sens Total Protein Albumin Lipase Urine Protein 100 (2+) H Urine Blood Large (3+) H Urine RBC >20 H 05/30/22 05/31/22 05/31/22 06:57 05:37 05:37 WBC RBC Hgb Hct Plt Count Immature Gran % (Auto) Neut % (Auto) Lymph % (Auto) Divide % (Auto) Lymph # (Auto) Abs Immat Gran (auto) Neutrophils % (Manual) Lymphocytes % (Manual) Abs Neuts (Manual) Lymphocytes # (Manual) BUN 36 H Random Glucose 135 H Calcium 10.4 H Alkaline Phosphatase 141 H Troponin I High Sens 487.9 H* D Total Protein 5.8 L Albumin 3.3 L Lipase 388 H Urine Protein Urine Blood Urine RBC Microbiology: Microbiology 05/29/22 21:13 Blood - Venous Blood Culture - Preliminary No growth after 24 hours. 05/29/22 20:09 Blood - Venous Blood Culture - Preliminary No growth after 24 hours. Diagnostic Findings Chest x-ray: report reviewed and image reviewed CT scan - chest: report reviewed and image reviewed Assessment and Plan (1) Lung malignancy: Status: Acute (2) Hypercalcemia: Status: Acute (3) Compression fracture of thoracic spine, non-traumatic: Status: Acute (4) Right rib fracture: Status: Acute (5) Chest pain: Status: Acute (6) COPD exacerbation: Status: Acute Plan I think this gentleman has, carcinoma of the lung with metastatic lesions, associated with hypercalcemia. He may have some degree of underlying COPD but there is no convincing evidence of acute exacerbation at this time. Also there is no convincing evidence of pneumonia. Recc . IV Solu-Medrol may be discontinued after 1 more day. DuoNeb updrafts Q 6 hours while awake and albuterol updraft Q 4-6 hours only p.r.n. if he has respiratory distress. Oxygen supplementation via nasal cannula to keep O2 sat above 90%, and as soon as he is stable he can be weaned off oxygen. Pain control without causing over-sedation. As family has requested hospice level care, so the focus should be more on keeping him comfortable. Thank you very much for asking me to see this gentleman. Procedures Date of Service Date of Service: 05/31/22
[2022-05-31 11:04] VITALS: BP 108/75; PULSE 90; RESP 20; O2SAT 96
--- NOTE | 2022-05-31 12:02 | P.PNIM_ITS ---
Subjective Subjective Date of Service: 05/31/22 Interval History: Follow-up chest pain admitted overnight for chest pain, NSTEMI denies pain at the time of evaluation, denies SOB Review of Systems Review of Systems: Yes all other systems are reviewed and are negative Constitutional Constitutional: Denies chills and Denies fever(s) ENT Ears, Nose, Mouth, and Throat: Denies dizziness Cardiovascular Cardiovascular: Denies chest pain, Denies palpitations and Denies dyspnea Respiratory Respiratory: Denies cough and Denies dyspnea Neurologic Neurologic: Denies dizziness Endocrine Endocrine: Denies palpitations Physical Exam Vital Signs: Vital Signs: Last Vital Signs Temp 97.8 F 05/30/22 16:00 Pulse 90 05/31/22 11:04 Resp 20 05/31/22 11:04 BP 108/75 05/31/22 11:04 Pulse Ox 96 05/31/22 11:04 O2 Del Method 05/31/22 11:04 O2 Flow Rate 4 05/31/22 11:04 Oxygen Flow Rate 2 05/29/22 19:51 BMI result Body Mass Index 23.6 Appearing in no acute distress lung sounds are clear to auscultation heart regular rate rhythm, clear S1, S2 positive bowel sounds, abdomen is soft, nontender neuro patient is alert, intermittent confusion Objective Data Active Medications Acetaminophen (Acetaminophen 325 Mg Tablet) 650 mg PO Q6H PRN PRN Reason: Pain, Mild (Pain Scale 1-3) Last Admin: 05/30/22 17:08 Dose: 650 mg Documented By: SHELLY Albuterol/Ipratropium (Albuterol/Iprat 2.5/0.5mg 3 Ml Ampul.Neb) 3 ml INHALE RQ6H WHILE AWAKE [facility] Last Admin: 05/31/22 08:05 Dose: 3 ml Documented By: DIAMOND Amlodipine Besylate (Amlodipine Besylate 5 Mg Tablet) 5 mg PO DAILY [facility]; Protocol Last Admin: 05/31/22 08:26 Dose: 5 mg Documented By: NATALIE Atorvastatin Calcium (Atorvastatin Calcium 80 Mg Tablet) 80 mg PO BEDTIME [facility] Last Admin: 05/30/22 23:27 Dose: 80 mg Documented By: SHELLY Furosemide (Furosemide 20 Mg/2 Ml Vial) 20 mg IVPUSH DAILY [facility]; Protocol Last Admin: 05/31/22 08:26 Dose: 20 mg Documented By: NATALIE Heparin Sodium (Porcine) (Heparin Sodium,Porcine 5,000 Unit/Ml Vial) 5,000 unit SUBCUT Q8H [facility] Last Admin: 05/31/22 06:45 Dose: 5,000 unit Documented By: ROSA Hydromorphone HCl (Hydromorphone Hcl 0.5 Mg/0.5 Ml Syringe) 0.5 mg IVPUSH Q4H PRN; Protocol PRN Reason: Pain, Severe (Pain Scale 7-10) Last Admin: 05/30/22 00:22 Dose: 0.5 mg Documented By: APRIL Lidocaine (Lidocaine 4 % Patch Adh..Patch) 2 patch TRANSDERMA DAILY [facility]; Protocol Last Admin: 05/31/22 08:41 Dose: 2 patch Documented By: NATALIE Melatonin (Melatonin 3 Mg Tablet) 6 mg PO BEDTIME PRN PRN Reason: Insomnia Methylprednisolone Sodium Succinate (Methylprednisolone Sod Succ 40 Mg/Ml Vial) 40 mg IVPUSH Q12H [facility] Last Admin: 05/31/22 06:45 Dose: 40 mg Documented By: ROSA Morphine Sulfate (Morphine Sulfate Er 15 Mg Tablet.Er) 15 mg PO Q12H [facility] Last Admin: 05/31/22 06:45 Dose: 15 mg Documented By: ROSA Multivitamins/Vitamin C (Multivitamin Tablet) 1 tab PO DAILY [facility] Last Admin: 05/31/22 08:26 Dose: 1 tab Documented By: NATALIE Omeprazole (Omeprazole 40 Mg Capsule.Dr) 40 mg PO DAILY [facility] Last Admin: 05/31/22 08:26 Dose: 40 mg Documented By: NATALIE Oxycodone HCl (Oxycodone Hcl Immed Release 5 Mg Tablet) 5 mg PO Q8H PRN PRN Reason: Pain, Moderate (Pain Scale 4-6 Pharmacy Consult (Consult Rx Perform Med Rec) 1 each MISCELLANE ONCE PRN PRN Reason: Consult order Senna (Sennosides 8.6 Mg Tablet) 17.2 mg PO BEDTIME PRN PRN Reason: Constipation Sertraline HCl (Sertraline Hcl 100 Mg Tablet) 100 mg PO DAILY [facility] Last Admin: 05/31/22 08:26 Dose: 100 mg Documented By: NATALIE Sodium Chloride (0.9 % Sodium Chloride Flush 3 Ml Syringe) 3 ml IVFLUSH QSHIFT [facility] Last Admin: 05/31/22 09:52 Dose: 3 ml Documented By: NATALIE Labs CBC & Chem 7: 05/30/22 06:57 05/31/22 05:37 Labs: Laboratory Results - last 24 hr 05/31/22 05/31/22 05:37 05:37 Anion Gap 17 Estim Creat Clear Calc 63.8 Estimated GFR > 60 Random Glucose 135 H Calcium 10.2 10.4 H Total Bilirubin 0.4 Direct Bilirubin 0.2 AST 26 ALT 31 Alkaline Phosphatase 141 H Total Protein 5.8 L Albumin 3.3 L Lipase 388 H Microbiology Microbiology Results: Microbiology 05/29/22 21:13 Blood Culture - Preliminary Blood - Venous No growth after 24 hours. 05/29/22 20:09 Blood Culture - Preliminary Blood - Venous No growth after 24 hours. Assessment and Plan (1) NSTEMI (non-ST elevated myocardial infarction): Status: Acute (2) Lung malignancy: Status: Acute (3) Hypercalcemia: Status: Acute (4) Compression fracture of thoracic spine, non-traumatic: Status: Acute (5) Right rib fracture: Status: Acute Plan 72-year-old male with a past medical history of hypertension, hyperlipidemia, anxiety, depression, history of esophageal cancer status post radiation 1997/ recurrence in: 16 /adenomatous polyp of the colon; recent admission to the hospital for chest pain/ elevated troponins; presented to the hospital today with a chief complaint of chest pain. NSTEMI Troponin elevated to 1250, repeat down to around 400 repeat CTA negative for central PE seen by cardiology - recommend conservative/medical management, no aggressive management and no further ischemic workup given malignancy asa on hold for outpatient biopsy high intensity statin therapy limited echo no wall motion abnormality Lung carcinoma with likely metastatic disease Likely causing shortness of breath Seen and examined by pulmonology who does not believe this is an acute exacerbation of COPD or even pneumonia CTA negative for PE but showing the worsening thickening of intralobular septa in both lungs which could represent a feature of lymphangitic tumor spread or possible superimposed pulmonary edema. New left pleural effusion probably r/t worsening malignancy Continue scheduled DuoNebs, 1 more day of IV steroids as per pulmonology Family requesting hospice consultation Pathologic fractures right 10th rib (old), t7 (old) t10 appears new supportive/symptomatic care Pain management Possible pancreatitis No abdominal pain lipase 829 initially, down to 388 supportive care trend lipase if abdominal pain, consider CT History of esophageal cancer Status post radiation /recurrence in 2016. Status post lobectomy in [address] chest showed multiple pulmonary nodules with metastasis/septal thickening with lighted lesions on the 10th rib and compression fractures of the vertebrae Patient being planned for lung biopsy and PET scan as outpatient. Dysphagia continue ground mechanical diet for now Hypercalcemia. Trending down Was started on IV fluid but was d/c due to SOB likely r/t pathologic fracture follow daily Thrombocytopenia Chronic follow CBC Mood Continue home sertraline DVT prophylaxis: Subcu heparin Code status: DNR/ DNI. Attending Dr. Banks Patient requires ongoing inpatient hospitalization for management and workup of shortness of breath, NSTEMI Quality Stroke Does the patient have a stroke diagnosis?: No VTE Prior VTE?: No VTE Risk Level:: Medical - moderate - high VTE Device Contraindication: Treatment Not Indicated VTE Drug Contraindication: N/A - Med Ordered
[2022-05-31] MEDS: HYDROmorphone HCl 0.5 MG/0.5 ML SYRINGE IVPUSH (16:06)
[2022-05-31] MEDS: Scopolamine 1.5 MG PATCH.TD.3 EAR-BEHIND (19:09)
[2022-05-31 19:15] VITALS: BP 139/87; PULSE 87; RESP 18; RESP 20; O2SAT 94
--- NOTE | 2022-05-31 22:00 | PC.NURSE ---
bedtime meds given. pt repositioned in bed. denture cup cleaned and rinsed w/ teeth soaking. pt wearing 4L humidified O2, respirations even and unlabored. call nance within reach. will continue to monitor closely
[2022-06-01] VITALS (9 sets, daily range): BP systolic 118–164; BP diastolic 60–85; PULSE 78–102; RESP 16–21; TEMP 36.3–36.7; O2SAT 90–96; BMI 21.4
[2022-06-01] MEDS: Atorvastatin Calcium 80 MG TABLET PO (00:20)
[2022-06-01] MEDS: 0.9 % Sodium Chloride Flush 3 ML SYRINGE IVFLUSH ×4 (01:06→23:01)
[2022-06-01] MEDS: Morphine Sulfate ER 15 MG TABLET.ER PO ×2 (05:50→18:13)
[2022-06-01] MEDS: methylPREDNISolone Sod Succ 40 MG/ML VIAL IVPUSH ×2 (05:51→18:13)
[2022-06-01] MEDS: Heparin Sodium,Porcine 5,000 UNIT/ML VIAL 5000 UNIT SUBCUT ×3 (05:53→20:10)
[2022-06-01] MEDS: Albuterol/Iprat 2.5/0.5MG 3 ML AMPUL.NEB INHALE ×3 (07:47→20:39)
[2022-06-01] MEDS: Omeprazole 40 MG CAPSULE.DR PO (08:14)
[2022-06-01] MEDS: Multivitamin TABLET 1 TAB PO (08:14)
[2022-06-01] MEDS: Sertraline HCL 100 MG TABLET PO (08:14)
[2022-06-01] MEDS: amLODIPine Besylate 5 MG TABLET PO (08:14)
[2022-06-01] MEDS: Lidocaine 4 % Patch ADH..PATCH 2 PATCH TRANSDERMA (08:15)
[2022-06-01] MEDS: Furosemide 20 MG/2 ML VIAL IVPUSH (08:15)
--- NOTE | 2022-06-01 09:06 | P.PNIM_ITS ---
Subjective Subjective Date of Service: 06/01/22 Interval History: Follow-up chest pain admitted overnight for chest pain, NSTEMI denies pain at the time of evaluation, denies SOB Review of Systems Review of Systems: Yes all other systems are reviewed and are negative Constitutional Constitutional: Denies chills and Denies fever(s) ENT Ears, Nose, Mouth, and Throat: Denies dizziness Cardiovascular Cardiovascular: Denies chest pain, Denies palpitations and Denies dyspnea Respiratory Respiratory: Denies cough and Denies dyspnea Neurologic Neurologic: Denies dizziness Endocrine Endocrine: Denies palpitations Physical Exam Vital Signs: Vital Signs: Last Vital Signs Temp 97.8 F 06/01/22 07:54 Pulse 98 06/01/22 07:54 Resp 20 06/01/22 07:54 BP 131/68 06/01/22 07:54 Pulse Ox 96 06/01/22 07:54 O2 Del Method 06/01/22 07:54 O2 Flow Rate 5 06/01/22 07:54 Oxygen Flow Rate 2 05/29/22 19:51 BMI result Body Mass Index 21.4 Appearing in no acute distress lung sounds rhonchi heart regular rate rhythm, clear S1, S2 positive bowel sounds, abdomen is soft, nontender neuro patient is alert x3, no focal deficits Objective Data Active Medications Acetaminophen (Acetaminophen 325 Mg Tablet) 650 mg PO Q6H PRN PRN Reason: Pain, Mild (Pain Scale 1-3) Last Admin: 05/30/22 17:08 Dose: 650 mg Documented By: PEDRODENRosa Albuterol/Ipratropium (Albuterol/Iprat 2.5/0.5mg 3 Ml Ampul.Neb) 3 ml INHALE RQ6H WHILE AWAKE [facility] Last Admin: 06/01/22 07:47 Dose: 3 ml Documented By: EFE Amlodipine Besylate (Amlodipine Besylate 5 Mg Tablet) 5 mg PO DAILY [facility]; Protocol Last Admin: 06/01/22 08:14 Dose: 5 mg Documented By: MARY Atorvastatin Calcium (Atorvastatin Calcium 80 Mg Tablet) 80 mg PO BEDTIME [facility] Last Admin: 06/01/22 00:20 Dose: 80 mg Documented By: ROSA Furosemide (Furosemide 20 Mg/2 Ml Vial) 20 mg IVPUSH DAILY [facility]; Protocol Last Admin: 06/01/22 08:15 Dose: 20 mg Documented By: MARY Heparin Sodium (Porcine) (Heparin Sodium,Porcine 5,000 Unit/Ml Vial) 5,000 unit SUBCUT Q8H [facility] Last Admin: 06/01/22 05:53 Dose: 5,000 unit Documented By: BAKARI Hydromorphone HCl (Hydromorphone Hcl 0.5 Mg/0.5 Ml Syringe) 0.5 mg IVPUSH Q4H PRN; Protocol PRN Reason: Pain, Severe (Pain Scale 7-10) Last Admin: 05/31/22 16:06 Dose: 0.5 mg Documented By: WAYNE Lidocaine (Lidocaine 4 % Patch Adh..Patch) 2 patch TRANSDERMA DAILY [facility]; P rotocol Last Admin: 06/01/22 08:15 Dose: 2 patch Documented By: MARY Melatonin (Melatonin 3 Mg Tablet) 6 mg PO BEDTIME PRN PRN Reason: Insomnia Methylprednisolone Sodium Succinate (Methylprednisolone Sod Succ 40 Mg/Ml Vial) 40 mg IVPUSH Q12H [facility] Last Admin: 06/01/22 05:51 Dose: 40 mg Documented By: BAKARI Morphine Sulfate (Morphine Sulfate Er 15 Mg Tablet.Er) 15 mg PO Q12H [facility] Last Admin: 06/01/22 05:50 Dose: 15 mg Documented By: BAKARI Morphine Sulfate (Morphine Sulfate 2 Mg/Ml Cartridge) 2 mg IVPUSH Q3H PRN; Protocol PRN Reason: respiratory distress Multivitamins/Vitamin C (Multivitamin Tablet) 1 tab PO DAILY [facility] Last Admin: 06/01/22 08:14 Dose: 1 tab Documented By: MARY Omeprazole (Omeprazole 40 Mg Capsule.Dr) 40 mg PO DAILY [facility] Last Admin: 06/01/22 08:14 Dose: 40 mg Documented By: MARY Oxycodone HCl (Oxycodone Hcl Immed Release 5 Mg Tablet) 5 mg PO Q8H PRN PRN Reason: Pain, Moderate (Pain Scale 4-6 Pharmacy Consult (Consult Rx Perform Med Rec) 1 each MISCELLANE ONCE PRN PRN Reason: Consult order Scopolamine (Scopolamine 1.5 Mg Patch.Td.3) 1.5 mg EAR-BEHIND Q72H [facility] Last Admin: 05/31/22 19:09 Dose: 1.5 mg Documented By: ROSA Senna (Sennosides 8.6 Mg Tablet) 17.2 mg PO BEDTIME PRN PRN Reason: Constipation Sertraline HCl (Sertraline Hcl 100 Mg Tablet) 100 mg PO DAILY [facility] Last Admin: 06/01/22 08:14 Dose: 100 mg Documented By: MARY Sodium Chloride (0.9 % Sodium Chloride Flush 3 Ml Syringe) 3 ml IVFLUSH QSHIFT [facility] Last Admin: 06/01/22 08:18 Dose: 3 ml Documented By: MARY Labs CBC & Chem 7: 05/30/22 06:57 05/31/22 05:37 Microbiology Microbiology Results: Microbiology 05/29/22 21:13 Blood Culture - Preliminary Blood - Venous No growth after 48 hours. 05/29/22 20:09 Blood Culture - Preliminary Blood - Venous No growth after 48 hours. Assessment and Plan (1) NSTEMI (non-ST elevated myocardial infarction): Status: Acute (2) Lung malignancy: Status: Acute (3) Hypercalcemia: Status: Acute (4) Compression fracture of thoracic spine, non-traumatic: Status: Acute (5) Right rib fracture: Status: Acute Plan 72-year-old male with a past medical history of hypertension, hyperlipidemia, anxiety, depression, history of esophageal cancer status post radiation 1997/ recurrence in: 16 /adenomatous polyp of the colon; recent admission to the hospital for chest pain/ elevated troponins; presented to the hospital today with a chief complaint of chest pain. NSTEMI Troponin elevated to 1250, repeat down to around 400 repeat CTA negative for central PE seen by cardiology - recommend conservative/medical management, no aggressive management and no further ischemic workup given malignancy asa on hold for outpatient biopsy high intensity statin therapy limited echo no wall motion abnormality Lung carcinoma with likely metastatic disease Likely causing shortness of breath Seen and examined by pulmonology who does not believe this is an acute exacerbation of COPD or even pneumonia CTA negative for PE but showing the worsening thickening of intralobular septa in both lungs which could represent a feature of lymphangitic tumor spread or possible superimposed pulmonary edema. New left pleural effusion probably r/t worsening malignancy Continue scheduled DuoNebs, 1 more day of IV steroids as per pulmonology Family requesting hospice consultation Pathologic fractures right 10th rib (old), t7 (old) t10 appears new supportive/symptomatic care Pain management Possible pancreatitis No abdominal pain lipase 829 initially, down to 388 supportive care trend lipase if abdominal pain, consider CT History of esophageal cancer Status post radiation /recurrence in 2016. Status post lobectomy in [address] chest showed multiple pulmonary nodules with metastasis/septal thickening with lighted lesions on the 10th rib and compression fractures of the vertebrae Patient being planned for lung biopsy and PET scan as outpatient. Dysphagia continue ground mechanical diet for now Hypercalcemia. Trending down Was started on IV fluid but was d/c due to SOB likely r/t pathologic fracture follow daily Thrombocytopenia Chronic follow CBC Mood Continue home sertraline DVT prophylaxis: Subcu heparin Code status: DNR/ DNI. Attending Dr. Darren ZHANG plan for in home hospice Patient requires ongoing inpatient hospitalization for management and workup of shortness of breath, NSTEMI, plan for hospice meeting today Quality Stroke Does the patient have a stroke diagnosis?: No VTE Prior VTE?: No VTE Risk Level:: Medical - moderate - high VTE Device Contraindication: Treatment Not Indicated VTE Drug Contraindication: N/A - Med Ordered
[2022-06-01] MEDS: HYDROmorphone HCl 0.5 MG/0.5 ML SYRINGE IVPUSH (10:54)
--- NOTE | 2022-06-01 11:19 | MHC.CM.PN ---
Addendum entered by Ayana Akers 06/02/22 09:27: CM CONTACTED [facility] THIS MORNING TO CONFIRM 1100 HOUR TRANSPORT. NEHEMIAH WAS INFORMED THEY ONLY HAVE 2 TRUCKS AND ALREADY HAVE TOO MANY CALLS CM CALLED [facility], THEY ALSO INDICATED THEY HAVE NO AVAILABILITY FOR TRANSPORT. [facility] STATED THEY MAY HAVE SOMETHING AFTER 1500 HOURS CM MADE REFERRALS TO BLS COMPANIES LISTED IN [facility] IN THIS AREA SO FAR, THERE ARE NO AVAILABLE BLS TRUCKS Addendum entered by Ayana Akers 06/01/22 11:26: NEHEMIAH MET WITH PT AND FAMILY PT WILL DC TOMORROW MORNING AT 1100 HOURS TO HIS SISTERS HOME AT [address] [facility] [facility] VIA BLS Original Note: NEHEMIAH MET WITH HOSPICE NURSE, ALBERTA, FROM [facility]. SHE REPORTS SHE MET WITH PT AND FAMILY AND THE CURRENT PLAN IS FOR EQUIPMENT TO BE DELIVERED TOMORROW MORNING PER DISCUSSION, BLS TRANSPORT WILL BE REQUESTED FOR 1100 HOURS TOMORROW MORNING SHE REPORTS PT WILL DC TO HIS SISTERS HOME ON [facility], CM WILL CONFIRM ADDRESS WITH FAMILY SHE ALSO ASKS THAT PRESCRIPTIONS FOR MORPHINE AND LORAZEPAM BE CALLED IN OR PAPER RX'S BE GIVEN TO FAMILY SHE REPORTS THERE IS ALSO CONCERN THAT THE PT HAS NOT HAD A BM RECENTLY SHE STATES PTS RN IS AWARE CURRENT DC PLAN IS HOME WITH [facility] TOMORROW AT 1100 HOURS VIA BLS TRANSPORT
[2022-06-01] MEDS: Mineral OiL enema 133 ML ENEMA PR (15:26)
[2022-06-01] MEDS: oxyCODONE HCl Immed Release 5 MG TABLET PO (15:41)
[2022-06-01] MEDS: polyethylene glycoL 3350 17 GM POWD.PACK PO (20:10)
[2022-06-02 03:18] VITALS: PULSE 72; RESP 18; TEMP 36.7; O2SAT 96
[2022-06-02 04:16] VITALS: BP 110/67
[2022-06-02] MEDS: Heparin Sodium,Porcine 5,000 UNIT/ML VIAL 5000 UNIT SUBCUT (06:07)
[2022-06-02] MEDS: methylPREDNISolone Sod Succ 40 MG/ML VIAL IVPUSH (06:07)
[2022-06-02] MEDS: Morphine Sulfate ER 15 MG TABLET.ER PO (06:07)
[2022-06-02 06:53] VITALS: BP 119/75; PULSE 85; RESP 18; TEMP 36.6; O2SAT 96
[2022-06-02] MEDS: Albuterol/Iprat 2.5/0.5MG 3 ML AMPUL.NEB INHALE (07:54)
[2022-06-02 07:55] VITALS: PULSE 95; RESP 16; O2SAT 83
--- NOTE | 2022-06-02 07:56 | P.DS_ITS ---
DS: Providers Provider Date of Service: 06/02/22 Date of admission: 05/29/22 23:20 Primary care physician: Tony Hammer MD Consults: 05/29/22 23:20 Consult to Cardiology Routine Consulting Provider: Wisam Sierra Reason for consultation: chest pain 05/30/22 15:06 Consult to Pulmonology Routine Consulting Provider: Veronica Harrington Reason for consultation: COPD exacerbation Has provider been notified: No Attending physician on discharge: Victor Manuel Juárez Discharging clinician: Joanna Harris DS: Diagnosis Discharge Diagnosis (1) NSTEMI (non-ST elevated myocardial infarction): Status: Acute (2) Lung malignancy: Status: Acute (3) Hypercalcemia: Status: Acute (4) Compression fracture of thoracic spine, non-traumatic: Status: Acute (5) Right rib fracture: Status: Acute DS: Summary Hospital Course Hospital Course: HP as per admitting provider 72-year-old male with a past medical history of hypertension, hyperlipidemia, anxiety, depression, history of esophageal cancer status post radiation 1997/ recurrence in: 16 /adenomatous polyp of the colon; recent admission to the hospital for chest pain/ elevated troponins;? presented to the hospital today with a chief complaint of chest pain.? Per family patient has been taking his home pain medications.? Has right-sided rib pain secondary to the fracture but for the past 1 day he has been complaining of left-sided ch est pain.? Worsens with deep inspiration.? Also has been gradually declining over the past 2 days, decreased oral intake, reports difficulty swallowing.?Denies any cough or sputum production. Denies any nausea vomiting.?For family patient has been gradually declining over the past 2 days.? And have been? speaking to Oncology for hospice considerations.? Was also planned for lung biopsy hence aspirin was stopped.Denies any falls or trauma.?Review of all other systems is negative except mentioned above ER course: Per ER team patient noted to elevated troponin, Cardiology was notified- did not recommend heparin drip.? Admitted to the hospital for further management . NSTEMI Troponin elevated to 1250, repeat down to around 400 repeat CTA negative for central PE seen by cardiology - recommend conservative/medical management, no aggressive management and no further ischemic workup given malignancy high intensity statin therapy limited echo no wall motion abnormality Lung carcinoma with likely metastatic disease Likely causing shortness of breath Seen and examined by pulmonology who does not believe this is an acute exacerbation of COPD or even pneumonia CTA negative for PE but showing the worsening thickening of intralobular septa in both lungs which could represent a feature of lymphangitic tumor spread or possible superimposed pulmonary edema.? New left pleural effusion probably r/t worsening malignancy Treated with scheduled DuoNebs and IV steroids while inpatient Home with hospice Pathologic fractures right 10th rib (old), t7 (old) t10 appears new supportive/symptomatic care Lidocaine patches Possible pancreatitis No abdominal pain lipase 829 initially, down to 388 supportive care trend lipase No further abdominal pain, nausea or vomiting History of esophageal cancer Status post radiation /recurrence in 2016. Status post lobectomy in [address] chest showed multiple pulmonary nodules with metastasis/septal thickening with lighted lesions on the 10th rib and compression fractures of the vertebrae Dysphagia On ground mechanical diet while inpatient May continue diet as tolerated at home Hypercalcemia.? Trending down Treated with IV fluids Thrombocytopenia Chronic Mental health Continue home sertraline PRESCRIPTIONS FOR MORPHINE AND LORAZEPAM PRINTED Time Spent with Patient Time attestation: Total time spent providing and/or coordinating discharge services: Discharge coordination time: Greater than 30 minutes Quality: Safe Use of Opioids Does Pt have an Active Cancer Diagnosis on the Problem List?: No Quality: Stroke Does the patient have a stroke diagnosis?: No Physical Exam Vital Signs: Vital Signs: Last Vital Signs Temp 98 F 06/02/22 06:53 Pulse 85 06/02/22 06:53 Resp 18 06/02/22 06:53 BP 119/75 06/02/22 06:53 Pulse Ox 96 06/02/22 06:53 O2 Del Method 06/02/22 06:53 O2 Flow Rate 5 06/02/22 06:53 Oxygen Flow Rate 2 05/29/22 19:51 BMI result Body Mass Index 21.4 Appearing in no acute distress head is normocephalic atraumatic eyes pupils are PERRLA sclera is anicteric mouth throat mucous membranes are intact and moist neck is supple no lymphadenopathy, no JVD noted lung sounds rhonchi heart regular rate rhythm, clear S1, S2 positive bowel sounds, abdomen is soft, nontender neuro patient is alert x3, no focal deficits DS: Data Data Completed and Pending Labs on day of discharge: Preliminary micro results at discharge 05/29/22 21:13 Blood Culture - Preliminary Blood - Venous No growth after 48 hours. 05/29/22 20:09 Blood Culture - Preliminary Blood - Venous No growth after 48 hours. Discharge Plan Discharge Anticipated Discharge Date/Time: 06/02/22 07:52 Patient Disposition: Home Health Service Discharge Diagnosis: NSTEMI LUNG CARCINOMA WITH METASTATIC DISEASE PATHOLOGICAL RIB FRACTURES PANCREATITIS Referrals: Jorge MARTIN [Outside] - 1 Week Tony Hammer MD [Primary Care Provider] - 1 Week Discharge Medications: New scopolamine base [Transderm-Scop] 1 mg over 3 days Patch 3 Day 1.5 mg EAR-BEHIND Q72H Qty: 4 0RF morphine concentrate 100 mg/5 mL (20 mg/mL) solution 5 mg PO .Q1 PRN (Reason: pain) Qty: 30 0RF Rx Instructions: Partial Fill upon patient request. lorazepam 0.5 mg tablet 0.5 mg PO .Q4 PRN (Reason: agitation) Qty: 24 0RF Continued losartan 50 mg Tablet 50 mg PO DAILY atorvastatin 20 mg Tablet 20 mg PO BEDTIME sertraline 100 mg Tablet 100 mg PO DAILY omeprazole 40 mg Capsule,Delayed Release(Dr/Ec) 40 mg PO DAILY morphine 15 mg tablet extended release 1 tab PO Q12H lidocaine [Lidocaine Pain Relief] 4 % adhesive patch,medicated 1 patch transdermal DAILY PRN (Reason: Pain) Protocol: Apply to: Apply to: ribs vitamin B complex Capsule 1 cap PO DAILY amlodipine 5 mg Tablet 5 mg PO DAILY 30 Days Qty: 30 0RF Protocol: Hold for SBP< HOLD for SBP < : 90 oxycodone 5 mg Tablet 5 mg PO Q8H PRN (Reason: Pain, Moderate (Pain Scale 4-6) Qty: 20 0RF Rx Instructions: Partial Fill upon patient request. Discharge Orders: Discharge Order (Routine); Ordered 06/02/22 Ordered By: Joanna Harris Diet: Advance to usual diet Activity on Discharge: As tolerated Stand Alone Forms: Patient Portal Discharge page Care Plan Goals: Continue with hospice Comfort, supportive care Health Concerns: NSTEMI LUNG CARCINOMA WITH METASTATIC DISEASE PATHOLOGICAL RIB FRACTURES PANCREATITIS Plan of Treatment: Discharged to home with hospice services Take all medications as prescribed Follow-up with primary care provider as needed Assessment: See discharge summary Discharge Date/Time: 06/02/22 13:30
[2022-06-02] MEDS: Furosemide 20 MG/2 ML VIAL IVPUSH (08:37)
[2022-06-02] MEDS: Lidocaine 4 % Patch ADH..PATCH 2 PATCH TRANSDERMA (08:38)
[2022-06-02] MEDS: amLODIPine Besylate 5 MG TABLET PO (08:38)
[2022-06-02] MEDS: Sertraline HCL 100 MG TABLET PO (08:38)
[2022-06-02] MEDS: 0.9 % Sodium Chloride Flush 3 ML SYRINGE IVFLUSH (08:38)
[2022-06-02] MEDS: Omeprazole 40 MG CAPSULE.DR PO (08:38)
[2022-06-02] MEDS: polyethylene glycoL 3350 17 GM POWD.PACK PO (08:38)
[2022-06-02] MEDS: Multivitamin TABLET 1 TAB PO (08:38)
[2022-06-02] MEDS: HYDROmorphone HCl 0.5 MG/0.5 ML SYRINGE IVPUSH (08:39)
--- NOTE | 2022-06-02 13:34 | MHC.CM.PN ---
PT DISCHARGED HOME TODAY WITH [facility] BLS TRANSPORT WAS REQUESTED FOR 1000 HOURS HOWEVER THEY WERE UNABLE TO ACCOMMODATE THEY DID TRANSPORT PT AT APPROXIMATELY 1300 HOURS PTS DAUGHTER [phone] [facility]
== END 2022-06-02 13:30 | disposition home health service (06) | DRG 180 ==
LOC: HO.ED 22:41 → HO.EDOVER 23:24 → HO.IMC 05-31 23:27 → HO.S3 06-01 17:40
PROVIDERS: Physician Assistant Medical; Admitting Provider Hospitalist; Emergency Provider Emergency Medicine; PCP Internal Medicine; Visit Provider Nurse Practitioner Acute Care
DX: C34.92 Malignant neoplasm of unspecified part of left bronchus or lung (principal); I21.4 Non-ST elevation (NSTEMI) myocardial infarction; K85.90 Acute pancreatitis without necrosis or infection, unspecified; J44.1 Chronic obstructive pulmonary disease with (acute) exacerbation; M48.54XA Collapsed vertebra, not elsewhere classified, thoracic region, initial encounter for fracture; J91.0 Malignant pleural effusion; C34.91 Malignant neoplasm of unspecified part of right bronchus or lung; M19.90 Unspecified osteoarthritis, unspecified site; Z66 Do not resuscitate; E78.00 Pure hypercholesterolemia, unspecified; I10 Essential (primary) hypertension; K21.9 Gastro-esophageal reflux disease without esophagitis; R13.10 Dysphagia, unspecified; F32.A Depression, unspecified; E83.52 Hypercalcemia; D69.6 Thrombocytopenia, unspecified; Z20.822 Contact with and (suspected) exposure to COVID-19; Z90.2 Acquired absence of lung [part of]; Z85.01 Personal history of malignant neoplasm of esophagus; Z86.010 Personal history of colon polyps; Z86.73 Personal history of transient ischemic attack (TIA), and cerebral infarction without residual deficits; Z85.118 Personal history of other malignant neoplasm of bronchus and lung; Z92.3 Personal history of irradiation; Z88.1 Allergy status to other antibiotic agents; Z79.899 Other long term (current) drug therapy
CPT/HCPCS: 0241U; 36415; 71045; 71275; 80048; 80076; 81001; 82310; 83605; 83690; 83880; 84484; 85007; 85025; 85027; 85379; 87040; 93005; 93308; 94640; 96361; 96374; 96375; 99218; 99285; J1170; J1940; J2920; J2930; J3475; Q9957; Q9967